=== PATIENT | male | born 1935 | race Caucasian/White ===

== ENCOUNTER → 2018-05-15 | Outpatient (CLI) | payer MEDICARE, BC, OTHER | LOC: M RAD 15:23 | DX: N18.4 Chronic kidney disease, stage 4 (severe) (principal); N20.0 Calculus of kidney | CPT/HCPCS: 74176 ==

== ENCOUNTER → 2019-02-20 | Outpatient (CLI) | payer MEDICARE, BC, OTHER ==
[~2019-02-20] MED LIST: ACET50TAOT PO; AKWA1OIN OS; AMLO10TA2 PO; ASPI81CH PO; ASPI81TA85 PO; CALC1CAP31; CATA0.1T PO; COLA50CA3 PO; CORE25TA PO; CRES20TA2 PO; CRESTOR PO; DRIS50003 PO; FINA5TAB2; FINA5TAB2 PO; FLOM0.4C39 PO; FURO40TA2; FURO40TA2 PO; GLIPPOW PO; INSUN; INSUN SC; LIQU1.4S OS; LISIPOW PO; METF500T PO; METO1TAB32; METO1TAB87 PO; METO50TA2 PO; MULTTAB4 PO; NIFE30TA7 PO; NITR-67; NITR-67 PO; NON-325T5 PO; PANT40TA3; PANT40TA3 PO; PRED10TA2 PO; ROCA0.25 PO; ROSU20TA4; TAMS1CAP17; TOPR25TA PO; VITA500045; VITA500C24 PO
[2019-02-24 00:06] LABS: Lyme Disease IgG/IgM Antibodie <0.91 ISR (0.00-0.90); Lyme Disease IgM Ab Quantitati <0.80 index (0.00-0.79)
== END ==
LOC: M LAB 19:28
PROVIDERS: ATTEND Family Medicine
DX: M79.2 Neuralgia and neuritis, unspecified (principal)

== ENCOUNTER → 2019-06-18 | Outpatient (REF) | payer MEDICARE, OTHER ==
[~2019-06-18] MED LIST changes: +ROLLMIS8 XX; -ROSU20TA4; +ROSU20TA5
== END ==
LOC: M SFHCPLAZ 10:14
PROVIDERS: ATTEND Dermatology
DX: C44.529 Squamous cell carcinoma of skin of other part of trunk (principal); L57.0 Actinic keratosis

== ENCOUNTER 2019-07-21 12:37 | Emergency (ER) | payer MEDICARE, BC, OTHER ==
[~2019-07-21] VITALS: Ht 170.2 cm; Wt 84.1 kg
[~2019-07-21 12:37] MED LIST changes: -ROLLMIS8 XX
[2019-07-21 13:50] LABS: BASO % 0.5 % (0.0-1.0); EOS # 0.2 10^3/uL (0.0-0.5); EOS % 2.6 % (0.0-3.0); HEMOGLOBIN 14.3 g/dl (13.5-17.5); LYMPH # 1.2 10^3/uL (1.5-5.0); LYMPH % 18.3 % (24.0-44.0); MEAN CORPUSCULAR HEMOGLOBIN 31.2 pg (27.0-33.0); MEAN CORPUSCULAR HGB CONC 31.8 g/dl (32.0-36.5); MONO # 0.5 10^3/uL (0.0-0.8); MONO % 8.1 % (0.0-5.0); NEUTROPHILS # 4.6 10^3/uL (1.5-8.5); PLATELET COUNT, AUTOMATED 147 10^3/uL (150-450); RED BLOOD COUNT 4.59 10^6/uL (4.30-6.10); WHITE BLOOD COUNT 6.5 10^3/uL (4.0-10.0)
[2019-07-21 14:29] LABS: ALBUMIN 3.7 GM/DL (3.2-5.2); BILIRUBIN,DIRECT 0.1 MG/DL (0.0-0.2); BILIRUBIN,TOTAL 0.6 MG/DL (0.2-1.0); CALCIUM LEVEL 9.2 MG/DL (8.8-10.2); CK-MB VALUE MASS 6.1 NG/ML (<3.6); CREATININE FOR GFR 3.97 MG/DL (0.70-1.30); GLOMERULAR FILTRATION RATE 15.4 (>35); MB/CK RELATIVE INDEX 8.59 (< OR =4); THYROID STIMULATING HORMONE 1.8 uIU/ML (0.358-3.740); TROPONIN I 0.06 NG/ML (< 0.10)
--- NOTE | 2019-07-21 14:43 | REP ---
Two-view chest: 07/21/2019. Indication: Weakness. Comparison: 02/09/2019. Findings: The lungs are clear. There is no pleural effusion or pneumothorax. Postoperative sequelae are redemonstrated. Left-sided dual lead pacer is noted with the leads intact. Cardiomediastinal silhouette is unremarkable. Impression: No acute cardiopulmonary process. Electronically Signed by Davon Araiza DO 07/21/2019 02:34 P
[2019-07-21] MEDS ORDERED: NS 1,000 ML IV ONE (14:45)
[2019-07-21 17:38] VITALS: BP 191/82
--- NOTE | 2019-07-21 23:48 | ECGEPIP ---
[facility] - ED Test Date: 2019-07-21 Pat Name: SHAKILA DIAZ Department: Room: - Gender: Male Route Carrier: TC : 1935 Requested By: Tiffanie Duenas Order Number: [id number] Reading MD: Nilton Lopes Measurements Intervals [place] Rate: 80 P: 34 VA: 182 QRS: 253 QRSD: 190 T: 94 QT: 483 QTc: 558 Interpretive Statements ELECTRONIC VENTRICULAR PACEMAKER SIMILAR TO 02/09/19 Electronically Signed on 07-21-2019 23:48:09 EST by Nilton Lopes
[2019-07-22] MEDS ORDERED: ROLLMIS8 XX (14:06)
== END 2019-07-21 18:07 | disposition home or self-care (01) ==
LOC: M ED 12:37
DX: E86.0 Dehydration (principal); R26.2 Difficulty in walking, not elsewhere classified; Z91.81 History of falling; I10 Essential (primary) hypertension; E78.00 Pure hypercholesterolemia, unspecified; N40.0 Benign prostatic hyperplasia without lower urinary tract symptoms; Z95.1 Presence of aortocoronary bypass graft; Z95.0 Presence of cardiac pacemaker; Z88.5 Allergy status to narcotic agent

== ENCOUNTER → 2019-07-21 | Outpatient (REF) | payer MEDICARE, OTHER | LOC: M LAB REF 18:18 | PROVIDERS: ATTEND Dermatology | DX: L90.5 Scar conditions and fibrosis of skin (principal) ==

== ENCOUNTER → 2019-10-21 | Outpatient (REF) | payer MEDICARE, OTHER ==
[~2019-10-21] MED LIST changes: +AUGM0.0534 TOP; +CLOTLOT TOP; +DOCU-129 PO; +DOCU100C16 PO; +LANTINJ4 SC; +NIFE1TAB52 PO; -NIFE30TA7 PO; +PEG1POW PO; +PURE500C5 PO; +ROLLMIS8 XX; +VITA50005 PO
== END ==
LOC: M LAB REF 11:30
PROVIDERS: ATTEND Dermatology
DX: L57.0 Actinic keratosis (principal)

== ENCOUNTER 2019-11-04 12:06 | Inpatient (IN) | payer MEDICARE, BC, OTHER ==
[~2019-11-04] VITALS: Ht 170.2 cm; Wt 85.2 kg
[~2019-11-04 12:06] MED LIST changes: -AUGM0.0534 TOP; -CLOTLOT TOP; -DOCU-129 PO; -DOCU100C16 PO; -LANTINJ4 SC; -PEG1POW PO; -PURE500C5 PO; -VITA50005 PO
[2019-11-04] MEDS ORDERED: FURO40TA2 PO (12:35)
[2019-11-04] MEDS ORDERED: PURE500C5 PO (12:35)
[2019-11-04] MEDS ORDERED: NS 500 ML IV ONE ×2 (13:00→15:45)
--- NOTE | 2019-11-04 13:46 | REP ---
CHEST, SINGLE VIEW: Single view of the chest is performed. No acute infiltrate is seen. Heart appears upper limits of normal in size to slightly enlarged. Multiple sternal wires and mediastinal clips are present. Mediastinal silhouette is unremarkable. Left dual lead pacemaker is again noted. IMPRESSION: No acute pulmonary disease. Electronically Signed by Santiago Pedro MD 11/04/2019 04:11 P
[2019-11-04 14:02] LABS: ALBUMIN 3.1 GM/DL (3.2-5.2); BILIRUBIN,DIRECT 0.2 MG/DL (0.0-0.2); BILIRUBIN,TOTAL 0.4 MG/DL (0.2-1.0); CALCIUM LEVEL 9.2 MG/DL (8.8-10.2); CK-MB VALUE MASS 4.5 NG/ML (<3.6); CREATININE FOR GFR 3.63 MG/DL (0.70-1.30); FREE T4 1.14 NG/DL (0.76-1.46); GLOMERULAR FILTRATION RATE 17.1 (>35); MAGNESIUM LEVEL 2.3 MG/DL (1.8-2.4); MB/CK RELATIVE INDEX 12.16 (< OR =4); THYROID STIMULATING HORMONE 1.68 uIU/ML (0.358-3.740); TROPONIN I 0.06 NG/ML (< 0.10)
[2019-11-04 14:16] LABS: BASO % 0.6 % (0.0-1.0); EOS # 0.2 10^3/uL (0.0-0.5); EOS % 3.2 % (0.0-3.0); HEMATOCRIT 36.1 % (42.0-52.0); HEMOGLOBIN 11.9 g/dl (13.5-17.5); MEAN CORPUSCULAR HEMOGLOBIN 31.6 pg (27.0-33.0); MONO # 0.5 10^3/uL (0.0-0.8); MONO % 7.6 % (0.0-5.0); NEUTROPHILS # 5.1 10^3/uL (1.5-8.5); NEUTROPHILS % 74.2 % (36.0-66.0); PLATELET COUNT, AUTOMATED 147 10^3/uL (150-450); RED BLOOD COUNT 3.76 10^6/uL (4.30-6.10); WHITE BLOOD COUNT 6.9 10^3/uL (4.0-10.0)
[2019-11-04] MEDS ORDERED: GLUCAGON FOR INJ 1 MG VIAL (J1610) SC PRN (18:45)
[2019-11-04] MEDS ORDERED: GLUCOSE 4 GM CHEW TABLET PO PRN (18:45)
[2019-11-04] MEDS ORDERED: DEXTROSE 50% 50 ML SYRINGE IV PRN (18:45)
--- NOTE | 2019-11-04 19:01 | HPEPDOC ---
General Date of Admission 11/04/19 Date of Service: Nov 04, 2019 Chief Complaint The patient is a 84-year-old male admitted with a reason for visit of Weakness. 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 Patient has been shaking, weak, with frequent falls at home. He was found to have orthostatic hypotension in the ED. The last week he has been very weak and shakey. he had fallen 5 times mostly in the mornings soon after getting up from bed. Went to see PMD Dr Tan and was found o have hypotension on standing ans was sent to the ED. In the ED he was found to have supine hypertension with large drop on standing up when he would become symptomatic and weak and shakey. He was admitted for orthostatic hypotension with gait instability and falls. Home Medications Scheduled Ascorbic Acid (Vitamin C) 500 Mg Capsule.er, 1 CAP PO DAILY, (Reported) Aspirin (Aspir 81) 81 Mg Tablet.dr, 81 MG PO QPM, (Reported) Calcitriol (Rocaltrol) 0.25 Mcg Capsule, 0.25 MCG PO DAILY, (Reported) Ergocalciferol (Vitamin D2) (Drisdol) 50,000 Unit Capsule, 50,000 UNIT PO Q2WK, (Reported) Finasteride (Finasteride) 5 Mg Tablet, 5 MG PO DAILY, (Reported) Furosemide (Furosemide) 40 Mg Tablet, 250 MG PO DAILY, (Reported) Furosemide (Furosemide) 40 Mg Tablet, 1 TAB PO DAILY, (Reported) Insulin Human NPH (Novolin N) 100 Unit/1 Ml Vial, 35 UNITS SC BID, (Reported) Metoprolol Succinate (Toprol Xl) 25 Mg Tab.er.24h, 25 MG PO DAILY, (Reported) Nifedipine (Nifedipine ER) 30 Mg Tab.er.24, 30 MG PO DAILY Nitrofurantoin Macrocrystal (Nitrofurantoin) 100 Mg Capsule, 100 MG PO DAILY, (Reported) Pantoprazole Sodium (Pantoprazole Sodium) 40 Mg Tablet.dr, 40 MG PO DAILY, (Reported) Rosuvastatin Calcium (Crestor) 20 Mg Tablet, 20 MG PO QPM, (Reported) Tamsulosin HCl (Flomax) 0.4 Mg Capsule, 0.8 MG PO QPM, (Reported) Scheduled PRN Acetaminophen (Acetaminophen) 325 Mg Tablet, 650 MG PO Q4H PRN for PAIN, (Reported) Allergies Coded Allergies: Sulfa (Sulfonamide Antibiotics) (Unverified Allergy, Severe, anaphylaxis, 02/09/19) Past Medical History Medical History CAD s/p CABG, Aortic stenosis s/p TAVR in 2014, 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, Diabetes, hypertension, hyperlipidemia, BPH, s/p suprapubic cath in 2013 for 1 year, 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, h/o Complete heart block s/p pacemaker, 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, Basal cell cancer left cheek, actinic keratosis Surgical History HEART BYPASS SURGERY HEART STENT PACEMAKER AORTIC VALVE REPLACEMENT Family History Significant Family History: Diabetes (father, younger brother), Heart disease (father, younger brother) Social History * Smoker: Denies Alcohol: Denies Drugs: denies A-FIB/CHADSVASC A-FIB History Current/History of A-Fib/PAF?: No Review of Systems Constitutional: Reports: Weakness; Denies: Chills, Fever, Night Sweats Eyes: Denies: Pain, Vision change ENT: Denies: Head Aches, Ear Pain, Dysphagia Skin: Reports: Lesions Pulmonary: Denies: Dyspnea, Cough Cardiovascular: Reports: Lt Headedness; Denies: Chest Pain, Palpitations, Orthopnea, Paroxysmal Noc. Dyspnea Gastrointestinal: Denies: Nausea, Vomiting, Abdominal Pain, Diarrhea Genitourinary: Denies: Dysuria, Frequency, Incontinence, Retention Hematologic: Denies: Bruising, Bleeding Excessively Musculoskeletal: Denies: Neck Pain, Back Pain, Joint Pain, Muscle Pain, Spasms Neurological: Reports: Weakness Physical Examination General Exam: Positive: Alert, Cooperative, No Acute Distress Eye Exam: Positive: PERRLA, Conjunctiva & lids normal, EOMI; Negative: Sclera icteric ENT Exam: Positive: Atraumatic, Mucous membr. moist/pink, Pharynx Normal Neck Exam: Positive: Supple; Negative: JVD, thyromegaly Chest Exam: Positive: Clear to auscultation, Normal air movement Heart Exam: Positive: Rate Normal, Regular Rhythm, Normal S1, Normal S2; Negative: Murmurs, Rubs Abdomen Exam: Positive: Normal bowel sounds, Soft; Negative: Tenderness, Hepatospenomegaly Extremity Exam: Negative: Clubbing, Cyanosis, Edema Skin Exam: Positive: Nl turgor and temperature; Negative: Breakdown, Lesion Neuro Exam: Positive: Normal Speech, Strength at 5/5 X4 ext, Normal Tone Psych Exam: Positive: Memory Intact, Oriented x 3 Vital Signs Vital Signs Date Time Temp Pulse Resp B/P (MAP) Pulse Ox O2 Delivery O2 Flow Rate FiO2 11/04/19 16:44 68 175/78 (110) 75 131/55 (80) 74 125/58 (80) 11/04/19 15:42 99.6 11/04/19 15:30 20 99 Room Air Laboratory Data Labs 24H Laboratory Tests 2 11/04/19 13:04: Bedside Glucose (Misc Panel) 393H 11/04/19 13:06: Anion Gap 9, Glomerular Filtration Rate 17.1L, Calcium Level 9.2, Magnesium Level 2.3, Total Bilirubin 0.4, Direct Bilirubin 0.2, Aspartate Amino Transf (AST/SGOT) 27, Alanine Aminotransferase (ALT/SGPT) 34, Alkaline Phosphatase 131H, Total Creatine Kinase 37L, Creatine Kinase MB 4.5H, Creatine Kinase MB Relative Index 12.16H, Troponin I 0.06, Total Protein 7.0, Albumin 3.1L, Albumin/Globulin Ratio 0.79L, Thyroid Stimulating Hormone (TSH) 1.680, Free Thyroxine 1.14 11/04/19 13:26: Immature Granulocyte % (Auto) 0.4, Neutrophils (%) (Auto) 74.2H, Lymphocytes (%) (Auto) 14.0L, Monocytes (%) (Auto) 7.6H, Eosinophils (%) (Auto) 3.2H, Basophils (%) (Auto) 0.6, Neutrophils # (Auto) 5.1, Lymphocytes # (Auto) 1.0L, Monocytes # (Auto) 0.5, Eosinophils # (Auto) 0.2, Basophils # (Auto) 0.0, Nucleated Red Blood Cells % (auto) 0.0 11/04/19 16:50: Urine Color YELLOW, Urine Appearance HAZY, Urine pH 6.0, Urine Specific [place] 1.013, Urine Protein 2+H, Urine Glucose (UA) 3+H, Urine Ketones NEGATIVE, Urine Blood NEGATIVE, Urine Nitrite NEGATIVE, Urine Bilirubin NEGATIVE, Urine Urobilinogen 0.2, Urine Leukocyte Esterase 3+H, Urine WBC (Auto) 171H, Urine RBC (Auto) 2, Urine Hyaline Casts (Auto) 0, Urine Bacteria (Auto) NEGATIVE, Urine Squamous Epithelial Cells 0, Urine Yeast-Like Cells (Auto) MODERATEH, Urine Sperm (Auto) CBC/BMP Laboratory Tests 11/04/19 13:06 11/04/19 13:26 Microbiology Microbiology 11/04/19 Urine Culture, Received Pending 11/04/19 Blood Culture, Received Pending 11/04/19 Blood Culture, Received Pending Assessment/Plan 84 year old male with PMH of CAD s/p CABG, Aortic stenosis s/p replacement, 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 Patient has been shaking, weak, with frequent falls at home. He was found to have orthostatic hypotension in the ED. The last week he has been very weak and shakey. he had fallen 5 times mostly in the mornings soon after getting up from bed. Went to see PMD Dr Tan and was found o have hypotension on standing ans was sent to the ED. In the ED he was found to have supine hypertension with large drop on standing up when he would become symptomatic and weak and shakey. He was admitted for orthostatic hypotension with gait instability and falls. Gait instability and falls from orthostatic hypotension and possible diabetic neuropathy part of the weakness is due to progressing CKD. PT and OT eval Supine hypertension with orthostatic hypotension possibly due to autonomic neuropathy unfortunately will not be able to use fludrocortisone at present as that will cause further supine hypertension will probably have to accept higher supine BPs to prevent symptoms from th orthosttic changes when he stands up CKD 4 to 5 will consult with Nephrology No signs of uremia, no fluid retention, electrolytes ok. continue diuretics. UA dirty patient does not have any urinary symptoms and no fever or elevated WBC will not treat now await culture results. Chronic anemia hh stable Hypertension continue home meds Diabetes uncontrolled lispro and levemir as per sliding scale. CAD/CABG continue asa, statin, betablocker BPH continue flomax and finasteride. Plan / VTE VTE Prophylaxis Ordered?: Yes LIO NICOLE MD Nov 04, 2019 18:02
[2019-11-04] MEDS ORDERED: CLOTLOT TOP (19:03)
[2019-11-04] MEDS ORDERED: AUGM0.0534 TOP (19:03)
[2019-11-04] MEDS ORDERED: LANTINJ4 SC (19:03)
[2019-11-04] MEDS ORDERED: DOCU-129 PO (19:03)
[2019-11-04] MEDS ORDERED: VITA50005 PO (19:03)
[2019-11-04 21:40] VITALS: BP 142/80
[2019-11-04] MEDS: DOCUSATE SODIUM 100 MG CAP PO SCH (22:19)
[2019-11-04] MEDS: HumaLOG INSULIN (NovoLOG) PER UNIT SC SCH (22:20)
[2019-11-05] MEDS: TAMSULOSIN 0.4 MG CAP PO SCH ×3 (00:27→19:52)
[2019-11-05] MEDS: LEVEMIR (INSULIN DETEMIR) 1 UNITS/0.01ML SC SCH ×3 (00:28→19:52)
[2019-11-05 04:00] VITALS: BP 129/59
[2019-11-05 06:04] LABS: BASO % 0.5 % (0.0-1.0); EOS # 0.4 10^3/uL (0.0-0.5); EOS % 6.2 % (0.0-3.0); HEMATOCRIT 34.6 % (42.0-52.0); HEMOGLOBIN 11.4 g/dl (13.5-17.5); LYMPH # 1.3 10^3/uL (1.5-5.0); LYMPH % 20.9 % (24.0-44.0); MEAN CORPUSCULAR HEMOGLOBIN 30.7 pg (27.0-33.0); MEAN CORPUSCULAR HGB CONC 32.9 g/dl (32.0-36.5); MEAN CORPUSCULAR VOLUME 93.3 fl (80.0-96.0); MONO # 0.5 10^3/uL (0.0-0.8); MONO % 8.2 % (0.0-5.0); NEUTROPHILS # 3.9 10^3/uL (1.5-8.5); PLATELET COUNT, AUTOMATED 143 10^3/uL (150-450); RED BLOOD COUNT 3.71 10^6/uL (4.30-6.10); WHITE BLOOD COUNT 6.1 10^3/uL (4.0-10.0)
[2019-11-05 06:32] LABS: CALCIUM LEVEL 8.4 MG/DL (8.8-10.2); CREATININE FOR GFR 3.09 MG/DL (0.70-1.30); GLOMERULAR FILTRATION RATE 20.6 (>35); POTASSIUM SERUM 4.8 MEQ/L (3.5-5.1)
--- NOTE | 2019-11-05 06:53 | ECGEPIP ---
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
[2019-11-05 08:00] VITALS: BP 138/68
[2019-11-05] MEDS: HumaLOG INSULIN (NovoLOG) PER UNIT SC SCH ×4 (08:24→19:53)
[2019-11-05] MEDS: FINASTERIDE 5 MG TAB PO SCH (08:25)
[2019-11-05] MEDS: DOCUSATE SODIUM 100 MG CAP PO SCH ×2 (08:25→19:52)
[2019-11-05] MEDS: HEPARIN SOD (PORCINE) 5000 UNITS/ML VIAL (J1644 PER 1000UNITS) SC SCH ×2 (08:25→19:52)
[2019-11-05] MEDS: METOPROLOL SUCC *XL* 25MG TAB (TopROL *XL*) PO SCH (08:26)
[2019-11-05] MEDS: PANTOPRAZOLE 40MG TAB (PROTONIX) PO SCH (08:26)
[2019-11-05] MEDS: NIFEdipine 30 MG XL TAB PO SCH (08:26)
[2019-11-05] MEDS ORDERED: FUROSEMIDE 40 MG TAB PO SCH (09:00)
--- NOTE | 2019-11-05 10:34 | IPNPDOC ---
Subjective Date Seen The patient was seen on 11/05/19. Subjective Chief Complaint/HPI Patient is comfortable in no distress. Offers no new complaints General: Denies: ROS Unobtainable, Chills, Night Sweats, Fatigue, Malaise, Normal Appetite, Other Symptoms Constitutional: Denies: Chills, Fever, Malaise, Night Sweats, Weakness, Fatigue, Weight Loss, Lethargy, Other Pulmonary: Denies: Dyspnea, Cough, Pleuritic Chest Pain, Other Symptoms Cardiovascular: Denies: Chest Pain, Palpitations, Orthopnea, Paroxysmal Noc. Dyspnea, Edema, Lt Headedness, Other Symptoms Gastrointestinal: Denies: Nausea, Vomiting, Abdominal Pain, Diarrhea, Constipation, Melena, Hematochezia, Other Symptoms Musculoskeletal: Denies: Neck Pain, Back Pain, Shoulder Pain, Arm Pain, Hand Pain, Leg Pain, Foot Pain, Joint Pain, Muscle Pain, Spasms, Other Symptoms Neurological: Denies: Weakness, Numbness, Incoordination, Change in speech, Confusion, Seizures, Other Symptoms Objective Physical Examination Eye Exam: Negative: Sclera icteric Neck Exam: Positive: Supple; Negative: JVD, thyromegaly Chest Exam: Positive: Clear to auscultation, Normal air movement Heart Exam: Positive: Rate Normal, Regular Rhythm, Normal S1, Normal S2; Negative: Murmurs, Rubs Abdomen Exam: Positive: Normal bowel sounds, Soft; Negative: Tenderness, Hepatospenomegaly Extremity Exam: Negative: Clubbing, Cyanosis, Edema Skin Exam: Positive: Nl turgor and temperature; Negative: Breakdown, Lesion Neuro Exam: Positive: Normal Speech, Strength at 5/5 X4 ext, Normal Tone Assessment /Plan Problems (1) Orthostatic hypotension Status: Acute Problem Text: Supine hypertension with orthostatic hypotension possibly due to autonomic neuropathy unfortunately will not be able to use fludrocortisone at present as that will cause further supine hypertension will probably have to accept higher supine BPs to prevent symptoms from th orthosttic changes when he stands up (2) Chronic kidney disease Status: Acute Problem Text: CKD [address] Landeros on the consults No signs of uremia, no fluid retention, electrolytes ok. continue diuretics. (3) HTN (hypertension) Status: Chronic Problem Text: Continue present meds (4) UTI (urinary tract infection) Status: Acute Problem Text: . 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 Patient has been shaking, weak, with frequent falls at home. He was found to have orthostatic hypotension in the ED. The last week he has been very weak and s hakey. he had fallen 5 times mostly in the mornings soon after getting up from bed. Went to see PMD Dr Tan and was found o have hypotension on standing ans was sent to the ED. In the ED he was found to have supine hypertension with large drop on standing up when he would become symptomatic and weak and shakey. He was admitted for orthostatic hypotension with gait instability and falls. Gait instability and falls from orthostatic hypotension and possible diabetic neuropathy part of the weakness is due to progressing CKD. PT and OT eval called possible rehab placement DC tele Plan/VTE VTE Prophylaxis Ordered?: Yes VS, I&O, 24H, Fishbone Vital Signs/I&O Vital Signs Date Time Temp Pulse Resp B/P (MAP) Pulse Ox O2 Delivery O2 Flow Rate FiO2 11/05/19 08:26 138/68 11/05/19 08:26 75 11/05/19 08:00 98.1 14 100 Room Air I&O- Last 24 Hours up to 6 AM0 11/05/19 06:00 Intake Total 1000 ml Output Total 0 ml Balance 1000 ml Laboratory Data 24H LABS Laboratory Tests 2 11/04/19 13:04: Bedside Glucose (Misc Panel) 393H 11/04/19 13:06: Anion Gap 9, Glomerular Filtration Rate 17.1L, Calcium Level 9.2, Magnesium Level 2.3, Total Bilirubin 0.4, Direct Bilirubin 0.2, Aspartate Amino Transf (AST/SGOT) 27, Alanine Aminotransferase (ALT/SGPT) 34, Alkaline Phosphatase 131H, Total Creatine Kinase 37L, Creatine Kinase MB 4.5H, Creatine Kinase MB Relative Index 12.16H, Troponin I 0.06, Total Protein 7.0, Albumin 3.1L, Albumin/Globulin Ratio 0.79L, Thyroid Stimulating Hormone (TSH) 1.680, Free Thyroxine 1.14 11/04/19 13:26: Immature Granulocyte % (Auto) 0.4, Neutrophils (%) (Auto) 74.2H, Lymphocytes (%) (Auto) 14.0L, Monocytes (%) (Auto) 7.6H, Eosinophils (%) (Auto) 3.2H, Basophils (%) (Auto) 0.6, Neutrophils # (Auto) 5.1, Lymphocytes # (Auto) 1.0L, Monocytes # (Auto) 0.5, Eosinophils # (Auto) 0.2, Basophils # (Auto) 0.0, Nucleated Red Blood Cells % (auto) 0.0 11/04/19 16:50: Urine Color YELLOW, Urine Appearance HAZY, Urine pH 6.0, Urine Specific [place] 1.013, Urine Protein 2+H, Urine Glucose (UA) 3+H, Urine Ketones NEGATIVE, Urine Blood NEGATIVE, Urine Nitrite NEGATIVE, Urine Bilirubin NEGATIVE, Urine Urobili nogen 0.2, Urine Leukocyte Esterase 3+H, Urine WBC (Auto) 171H, Urine RBC (Auto) 2, Urine Hyaline Casts (Auto) 0, Urine Bacteria (Auto) NEGATIVE, Urine Squamous Epithelial Cells 0, Urine Yeast-Like Cells (Auto) MODERATEH, Urine Sperm (Auto) 11/04/19 17:55: Bedside Glucose (Misc Panel) 320H 11/04/19 21:02: Bedside Glucose (Misc Panel) 415H 11/04/19 22:06: Bedside Glucose (Misc Panel) 378H 11/05/19 05:52: Immature Granulocyte % (Auto) 0.2, Neutrophils (%) (Auto) 64.0, Lymphocytes (%) (Auto) 20.9L, Monocytes (%) (Auto) 8.2H, Eosinophils (%) (Auto) 6.2H, Basophils (%) (Auto) 0.5, Neutrophils # (Auto) 3.9, Lymphocytes # (Auto) 1.3L, Monocytes # (Auto) 0.5, Eosinophils # (Auto) 0.4, Basophils # (Auto) 0.0, Nucleated Red Blood Cells % (auto) 0.0, Anion Gap 8, Glomerular Filtration Rate 20.6L, Estimated Mean Plasma Glucose 212H, Hemoglobin A1c 9.0, Calcium Level 8.4L CBC/BMP Laboratory Tests 11/04/19 13:06 11/04/19 13:26 11/05/19 05:52 Microbiology Microbiology 11/04/19 Urine Culture, Received Pending 11/04/19 Blood Culture, Received Pending 11/04/19 Blood Culture, Received Pending JOSEF HARPER MD Nov 05, 2019 10:33
[2019-11-05 12:00] VITALS: BP 133/61
--- NOTE | 2019-11-05 14:01 | CR ---
DATE OF CONSULTATION: 11/05/2019 REQUESTING PHYSICIAN: Dr. Mary Farmer. REASON FOR CONSULTATION: Management of acute kidney injury superimposed on chronic kidney disease. CHIEF COMPLAINT: The patient presented to the hospital with dizziness and falls. HISTORY OF PRESENT ILLNESS: Mr. James Reeves is an 84-year-old male with past medical history of chronic kidney disease stage IV, history of coronary artery disease status post coronary artery bypass graft (CABG), aortic stenosis, diabetes mellitus type 2, multiple other comorbidities as mentioned below. The patient was sent to the emergency room yesterday from the primary care office because of low blood pressures. The patient reports that he was feeling very weak and tired and he was having frequent falls at home. He was found to have hypotension in the emergency room. The patient was admitted under the hospitalist service last night. He was given IV fluid hydration. He was also found to have acute renal failure superimposed on chronic kidney disease and creatinine on arrival was 3.6. Nephrology service was called for further help in the management of this patient. I saw and evaluated the patient this morning at the bedside. He reported that he is feeling slightly better today as compared with yesterday. He was sleepy because he was unable to sleep last night. PAST MEDICAL HISTORY: Past medical history of chronic kidney disease stage IV, history of coronary artery disease, status post CABG, aortic stenosis status post transcatheter aortic valve replacement (TAVR) in 2014, diabetes mellitus type 2, hypertension, hyperlipidemia, benign prostatic hypertrophy (BPH), history of suprapubic catheter in 2013 for 1 year. [place] palsy of the left face, history of a complete heart block status post pacemaker, history of multiple squamous cell cancer lesions in the past and basal cell cancer in the left cheek. PAST SURGICAL HISTORY: Status post coronary artery bypass grafting, status post stents in the heart, status post pacemaker, status post aortic valve replacement. ALLERGIES: The patient is allergic to SULFA drugs. FAMILY HISTORY: No significant family history of end-stage renal disease requiring hemodialysis. SOCIAL HISTORY: The patient lives at home. Denies any smoking, illicit drug abuse or alcohol abuse. REVIEW OF SYSTEMS: Constitutional: Patient reports feeling weak and fatigued. EYES: He denies any blurry vision, double vision. ENT: Denies any dysphagia, odynophagia. CARDIOVASCULAR: He denies any chest pain or palpitation. RESPIRATORY: Denies any shortness of breath or cough. GI: Denies any nausea, vomiting. GENITOURINARY: He denies any dysuria or hematuria. MUSCULOSKELETAL: Reports muscle weakness. SKIN: He denies any rashes or ulcers. HEAD BANQUET WAITER/WAITRESS: He denies any strokes or seizures. He does report falls. HEMATOLOGY/ONCOLOGY: He denies any easy bleeding or bruising. All other review of systems is negative. PHYSICAL EXAMINATION: GENERAL: The patient is awake, alert, oriented to oriented times three, laying in the in the bed. VITAL SIGNS: Temperature is 98.1 degrees Fahrenheit, blood pressure 138/68, pulse is 75, respiratory of 40, saturating 100% on room air. Intake and output: There is no urine output recorded. HEAD AND NECK EXAM: Extraocular muscles intact. Pupils equally round and reactive to light. Mucous membranes are moist. Neck is supple. There is no jugular venous distention (JVD). CARDIOVASCULAR: S1, S2, regular rate. No edema of the bilateral lower extremities. RESPIRATORY: Chest is clear to auscultation bilaterally. Bilateral equal air entry. No rales or rhonchi. ABDOMEN: Soft, positive bowel sounds. Nontender. No organomegaly. GENITOURINARY: Bladder is not palpable. MUSCULOSKELETAL: No clubbing or cyanosis. Pulses are 2+. No edema of the bilateral lower extremities. HEAD BANQUET WAITER/WAITRESS: No focal deficit. Power is 5/5 in all extremities. LAB REVIEW: CBC showed WBC of 6.1, hemoglobin 11.4, platelets of 143. Urinalysis done on admission showed 2+ protein, no blood, 3+ leukocyte esterase, WBCs were 171. BMP done on arrival showed sodium 135, potassium 5, chloride 99, bicarb 27, BUN 79, creatinine 3.6. BMP done this morning showed sodium 139, potassium 4.8, chloride 106, bicarb 25, BUN 68, creatinine is 3, A1c is 9, calcium is 8.4. IMAGING: A chest x-ray was done yesterday which showed no acute pulmonary process. HOME MEDICATIONS: - The patient takes Tylenol as needed - vitamin C 500 mg daily - aspirin 81 mg daily - calcitriol 0.25 mcg by mouth every other day - Colace 100 mg by mouth nightly - vitamin D 50,000 units once a month - finasteride 5 mg by mouth daily - Lasix 40 mg by mouth daily - Insulin Lantus 50 units daily - metoprolol XL 25 mg by mouth daily - nifedipine 30 mg by mouth daily - nifedipine 30 mg by mouth daily - Protonix 40 mg by mouth - nitrofurantoin 100 mg by mouth daily - Flomax 0.4 mg p.o. twice a day CURRENT INPATIENT MEDICATIONS: Include - normal saline 500 mL bolus times two doses yesterday - aspirin 81 mg daily - calcitriol 0.25 mcg every other day - Colace 100 mg by mouth twice a day - finasteride 5 mg by mouth daily. - Lasix 40 mg daily which I have stopped now. - He is on heparin 5000 units subcu every 12 hourly - insulin Levemir 30 units subcu twice a day - insulin sliding scale - metoprolol XL 25 mg by mouth daily - nifedipine 30 mg daily - Protonix 40 mg daily - rosuvastatin 20 mg nightly - Flomax 0.4 mg by mouth twice a day. ASSESSMENT: 84 years old man with history of chronic kidney disease stage IV, diabetes mellitus type 2, history of coronary artery disease, hypertension, BPH, admitted this time with weakness, orthostatic hypotension and falls along with acute kidney injury superimposed on chronic kidney disease. PLAN: 1. Acute kidney injury superimposed on, chronic kidney disease stage IV. The patient was found to have a creatinine of 3.6, most likely secondary to dehydration volume depletion and orthostatic hypotension and falls. He was given IV fluid hydration and because of that I am stopping the oral diuretic at this time. Continue to monitor for renal improvement. Creatinine is also trending down from 3.6 to 3 this morning. 2. Hypertension: Continue current dose of metoprolol and nifedipine. Blood pressures are acceptable and diuretics are on hold as mentioned above. 3. Diabetes mellitus type 2: Continue insulin sliding scale and long-acting insulin. Avoid use of metformin, angiotensin receptor blockers or angiotensin converting enzyme inhibitors (KACEY) inhibitors. 4. Coronary artery disease status post CABG and aortic valve replacement. Continue current dose of rosuvastatin, aspirin and metoprolol. 5. Secondary hyperparathyroidism: Continue current dose of calcitriol 0.25 mcg three times a day at the day. 6. BPH with lower urinary tract symptoms. Continue current dose of finasteride and Flomax. Thank you for involving me in the care of this patient. I shall be happy to follow the patient along with you tomorrow morning.
[2019-11-05 16:00] VITALS: BP 128/60
[2019-11-05] MEDS: ROSUVASTATIN 10 MG TAB (CRESTOR) PO SCH (18:27)
[2019-11-05] MEDS: ASPIRIN 81 MG ENTERIC TAB PO SCH (18:27)
[2019-11-05 20:00] VITALS: BP 108/55
[2019-11-05 22:39] VITALS: BP 133/72
[2019-11-06 06:00] VITALS: BP 128/60
[2019-11-06 06:29] LABS: BASO % 0.4 % (0.0-1.0); EOS # 0.3 10^3/uL (0.0-0.5); EOS % 4.4 % (0.0-3.0); HEMATOCRIT 36.1 % (42.0-52.0); HEMOGLOBIN 11.9 g/dl (13.5-17.5); LYMPH # 1.4 10^3/uL (1.5-5.0); LYMPH % 18.4 % (24.0-44.0); MEAN CORPUSCULAR HEMOGLOBIN 31.2 pg (27.0-33.0); MEAN CORPUSCULAR VOLUME 94.8 fl (80.0-96.0); MONO # 0.6 10^3/uL (0.0-0.8); MONO % 7.4 % (0.0-5.0); NEUTROPHILS # 5.2 10^3/uL (1.5-8.5); NEUTROPHILS % 68.9 % (36.0-66.0); PLATELET COUNT, AUTOMATED 155 10^3/uL (150-450); RED BLOOD COUNT 3.81 10^6/uL (4.30-6.10); WHITE BLOOD COUNT 7.6 10^3/uL (4.0-10.0)
[2019-11-06 06:37] LABS: CALCIUM LEVEL 8.8 MG/DL (8.8-10.2); CREATININE FOR GFR 3.51 MG/DL (0.70-1.30); GLOMERULAR FILTRATION RATE 17.8 (>35); POTASSIUM SERUM 4.2 MEQ/L (3.5-5.1)
[2019-11-06] MEDS: HumaLOG INSULIN (NovoLOG) PER UNIT SC SCH ×4 (07:30→21:00)
[2019-11-06] MEDS: LEVEMIR (INSULIN DETEMIR) 1 UNITS/0.01ML SC SCH ×2 (09:00→22:01)
[2019-11-06] MEDS: TAMSULOSIN 0.4 MG CAP PO SCH ×2 (10:21→22:01)
[2019-11-06] MEDS: PANTOPRAZOLE 40MG TAB (PROTONIX) PO SCH (10:21)
[2019-11-06] MEDS: DOCUSATE SODIUM 100 MG CAP PO SCH ×2 (10:21→22:01)
[2019-11-06] MEDS: NIFEdipine 30 MG XL TAB PO SCH (10:21)
[2019-11-06] MEDS: FINASTERIDE 5 MG TAB PO SCH (10:22)
[2019-11-06] MEDS: HEPARIN SOD (PORCINE) 5000 UNITS/ML VIAL (J1644 PER 1000UNITS) SC SCH ×2 (10:22→22:01)
[2019-11-06] MEDS: METOPROLOL SUCC *XL* 25MG TAB (TopROL *XL*) PO SCH (10:22)
[2019-11-06] MEDS: CALCITRIOL 0.25 MCG CAP (S0169) PO SCH (10:22)
--- NOTE | 2019-11-06 10:38 | IPNPDOC ---
Subjective Date Seen The patient was seen on 11/06/19. Subjective Chief Complaint/HPI Patient is comfortable offers no new complaints at the present time General: Denies: ROS Unobtainable, Chills, Night Sweats, Fatigue, Malaise, Normal Appetite, Other Symptoms Constitutional: Denies: Chills, Fever, Malaise, Night Sweats, Weakness, Fatigue, Weight Loss, Lethargy, Other Pulmonary: Denies: Dyspnea, Cough, Pleuritic Chest Pain, Other Symptoms Cardiovascular: Denies: Chest Pain, Palpitations, Orthopnea, Paroxysmal Noc. Dyspnea, Edema, Lt Headedness, Other Symptoms Gastrointestinal: Denies: Nausea, Vomiting, Abdominal Pain, Diarrhea, Constipation, Melena, Hematochezia, Other Symptoms Musculoskeletal: Denies: Neck Pain, Back Pain, Shoulder Pain, Arm Pain, Hand Pain, Leg Pain, Foot Pain, Joint Pain, Muscle Pain, Spasms, Other Symptoms Neurological: Denies: Weakness, Numbness, Incoordination, Change in speech, Confusion, Seizures, Other Symptoms Objective Physical Examination Eye Exam: Negative: Sclera icteric Neck Exam: Positive: Supple; Negative: JVD, thyromegaly Chest Exam: Positive: Clear to auscultation, Normal air movement Heart Exam: Positive: Rate Normal, Regular Rhythm, Normal S1, Normal S2; Negative: Murmurs, Rubs Abdomen Exam: Positive: Normal bowel sounds, Soft; Negative: Tenderness, Hepatospenomegaly Extremity Exam: Negative: Clubbing, Cyanosis, Edema Skin Exam: Positive: Nl turgor and temperature; Negative: Breakdown, Lesion Neuro Exam: Positive: Normal Speech, Strength at 5/5 X4 ext, Normal Tone Assessment /Plan Problems (1) Orthostatic hypotension Status: Resolved Problem Text: Supine hypertension with orthostatic hypotension possibly due to autonomic neuropathy Shortness of orthostatic hypotension has resolved Can be discharged home or to rehabilitation facility once cleared by physical therapy (2) Chronic kidney disease Status: Acute Problem Text: CKD [address] Landeros on the consults No signs of uremia, no fluid retention, electrolytes ok. continue diuretics. (3) HTN (hypertension) Status: Chronic Problem Text: Continue present meds (4) UTI (urinary tract infection) Status: Acute Problem Text: . 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 Patient has been shaking, weak, with frequent falls at home. He was found to have orthostatic hypotension in the ED. The last week he has been very weak and shakey. he had fallen 5 times mostly in the mornings soon after getting up from bed. Went to see PMD Dr Tan and was found o have hypotension on standing ans was sent to the ED. In the ED he was found to have supine hypertension with large drop on standing up when he would become symptomatic and weak and shakey. He was admitted for orthostatic hypotension with gait instability and falls. Gait instability and falls from orthostatic hypotension and possible diabetic neuropathy part of the weakness is due to progressing CKD. PT and OT eval called possible rehab placement DC tele Plan/VTE VTE Prophylaxis Ordered?: Yes VS, I&O, 24H, [facility] Vital Signs/I&O Vital Signs Date Time Temp Pulse Resp B/P (MAP) Pulse Ox O2 Delivery O2 Flow Rate FiO2 11/06/19 10:21 128/60 11/06/19 06:00 97.1 71 18 96 Room Air I&O- Last 24 Hours up to 6 AM 11/06/19 06:00 Intake Total 1080 ml Output Total 800 ml Balance 280 ml Laboratory Data 24H LABS Laboratory Tests 2 11/05/19 13:07: Bedside Glucose (Misc Panel) 241H 11/05/19 18:17: Bedside Glucose (Misc Panel) 141H 11/05/19 19:45: Bedside Glucose (Misc Panel) 138H 11/06/19 05:18: Immature Granulocyte % (Auto) 0.5, Neutrophils (%) (Auto) 68.9H, Lymphocytes (%) (Auto) 18.4L, Monocytes (%) (Auto) 7.4H, Eosinophils (%) (Auto) 4.4H, Basophils (%) (Auto) 0.4, Neutrophils # (Auto) 5.2, Lymphocytes # (Auto) 1.4L, Monocytes # (Auto) 0.6, Eosinophils # (Auto) 0.3, Basophils # (Auto) 0.0, Nucleated Red Blood Cells % (auto) 0.0, Anion Gap 7L, Glomerular Filtration Rate 17.8L, Calcium Level 8.8 11/06/19 07:59: Bedside Glucose (Misc Panel) 75L CBC/BMP Laboratory Tests 11/06/19 05:18 Microbiology Microbiology 11/04/19 Urine Culture - Final, Complete 11/04/19 Blood Culture - Preliminary, Resulted No growth after 24 hours . All specim... 11/04/19 Blood Culture - Preliminary, Resulted No growth after 24 hours . All specim... JOSEF HARPER MD Nov 06, 2019 10:38
[2019-11-06 14:00] VITALS: BP 126/57
[2019-11-06] MEDS: ROSUVASTATIN 10 MG TAB (CRESTOR) PO SCH (18:00)
[2019-11-06] MEDS: ASPIRIN 81 MG ENTERIC TAB PO SCH (18:01)
[2019-11-06 22:00] VITALS: BP 144/66
[2019-11-07 06:00] VITALS: BP 126/58
[2019-11-07 06:11] LABS: BASO % 0.4 % (0.0-1.0); EOS # 0.4 10^3/uL (0.0-0.5); EOS % 5.7 % (0.0-3.0); HEMATOCRIT 35.8 % (42.0-52.0); HEMOGLOBIN 11.7 g/dl (13.5-17.5); LYMPH # 1.3 10^3/uL (1.5-5.0); MEAN CORPUSCULAR HGB CONC 32.7 g/dl (32.0-36.5); MONO # 0.6 10^3/uL (0.0-0.8); MONO % 8.6 % (0.0-5.0); NEUTROPHILS # 4.8 10^3/uL (1.5-8.5); NEUTROPHILS % 66.9 % (36.0-66.0); PLATELET COUNT, AUTOMATED 143 10^3/uL (150-450); RED BLOOD COUNT 3.77 10^6/uL (4.30-6.10); WHITE BLOOD COUNT 7.2 10^3/uL (4.0-10.0)
[2019-11-07 06:33] LABS: CALCIUM LEVEL 8.6 MG/DL (8.8-10.2); CREATININE FOR GFR 3.41 MG/DL (0.70-1.30); GLOMERULAR FILTRATION RATE 18.4 (>35); POTASSIUM SERUM 4.5 MEQ/L (3.5-5.1)
--- NOTE | 2019-11-07 07:24 | IPN ---
DATE: 11/06/2019 SUBJECTIVE: The patient was seen and examined at the bedside today morning. The patient is afebrile, hemodynamically stable. He reports that he is feeling better today as compared with yesterday. His diuretics were held yesterday but before that he had already received a dose of Lasix. Creatinine has bumped up from 3 to 3.5 today. OBJECTIVE: Vital signs: Temperature is 97.1 degrees Fahrenheit, blood pressure 128/60, pulse is 71, respiratory rate of 18, saturating 96% on room air. Intake and output: Urine output recorded is 800 mL yesterday. Weight in the bed scale was 81.1 kg yesterday. PHYSICAL EXAMINATION: General: The patient is awake, alert, oriented times three, laying in bed, in no apparent distress. Head and neck exam: Extraocular muscles intact. Pupils equally round and reactive to light. Mucous membranes are moist. Neck is supple. There is no JVD. Cardiovascular: S1, S2, regular rate. No edema of the bilateral lower extremities. Respiratory: Chest is clear to auscultation bilaterally. Bilateral equal air entry. No rales or rhonchi. Abdomen: Soft, positive bowel sounds. Nontender. No organomegaly. Musculoskeletal: No clubbing or cyanosis. Pulses are 2+. FELT PULLER: No focal deficit, power is 5/5 in all extremities. LABORATORY REVIEW: CBC showed WBC of 7.6, hemoglobin 11.9, platelets are 155. BMP showed sodium 142, potassium 4.2, chloride 108, bicarbonate 27, BUN 73, creatinine 3.5, it was 3 yesterday. CURRENT INPATIENT MEDICATIONS: The patient's medications were all reviewed by me. His diuretic was stopped yesterday, however he had already received a dose. No other change in the medications today as compared with yesterday. ASSESSMENT/PLAN: 1. Acute kidney injury superimposed on chronic kidney disease stage IV. The patient's creatinine had bumped up again to 3.5 now. Continue to hold the diuretic at this time. I am going to get the patient's bladder scan done at the bedside as well. 2. Hypertension. Continue current dose of metoprolol and nifedipine. Hold the diuretics. 3. Diabetes mellitus type 2. Continue insulin sliding scale along with insulin Levemir. 4. BPH with lower urinary tract symptoms. Continue Flomax and finasteride and do the bladder scan. If the bladder scan shows postvoid residual more than 300 mL, the patient will need a Sargent catheter placement.
[2019-11-07] MEDS: HumaLOG INSULIN (NovoLOG) PER UNIT SC SCH ×4 (09:51→20:24)
[2019-11-07] MEDS: LEVEMIR (INSULIN DETEMIR) 1 UNITS/0.01ML SC SCH ×2 (09:52→20:32)
[2019-11-07] MEDS: FINASTERIDE 5 MG TAB PO SCH (09:52)
[2019-11-07] MEDS: DOCUSATE SODIUM 100 MG CAP PO SCH ×2 (09:54→20:34)
[2019-11-07] MEDS: TAMSULOSIN 0.4 MG CAP PO SCH ×2 (09:54→20:34)
[2019-11-07] MEDS: METOPROLOL SUCC *XL* 25MG TAB (TopROL *XL*) PO SCH (09:54)
[2019-11-07] MEDS: PANTOPRAZOLE 40MG TAB (PROTONIX) PO SCH (09:54)
[2019-11-07] MEDS: NIFEdipine 30 MG XL TAB PO SCH (09:55)
[2019-11-07] MEDS: HEPARIN SOD (PORCINE) 5000 UNITS/ML VIAL (J1644 PER 1000UNITS) SC SCH ×2 (09:55→20:33)
--- NOTE | 2019-11-07 10:51 | IPNPDOC ---
Subjective Date Seen The patient was seen on 11/07/19. Subjective Chief Complaint/HPI Patient not cleared by physical therapy for discharge Also bladder sono was done. He has the residual volume more than 300s often but patient Lambert able to urinate and is refusing Sargent are straight cath as per patient, he has a urethral strictures General: Denies: ROS Unobtainable, Chills, Night Sweats, Fatigue, Malaise, Normal Appetite, Other Symptoms Constitutional: Denies: Chills, Fever, Malaise, Night Sweats, Weakness, Fatigue, Weight Loss, Lethargy, Other Skin: Denies: Rash, Lesions, Jaundice, Bruising, Itching, Dry, Breakdown, Nail Changes, Other Pulmonary: Denies: Dyspnea, Cough, Pleuritic Chest Pain, Other Symptoms Gastrointestinal: Denies: Nausea, Vomiting, Abdominal Pain, Diarrhea, Constipation, Melena, Hematochezia, Other Symptoms Musculoskeletal: Denies: Neck Pain, Back Pain, Shoulder Pain, Arm Pain, Hand Pain, Leg Pain, Foot Pain, Joint Pain, Muscle Pain, Spasms, Other Symptoms Neurological: Denies: Weakness, Numbness, Incoordination, Change in speech, Confusion, Seizures, Other Symptoms Objective Physical Examination Eye Exam: Negative: Sclera icteric Neck Exam: Positive: Supple; Negative: JVD, thyromegaly Chest Exam: Positive: Clear to auscultation, Normal air movement Heart Exam: Positive: Rate Normal, Regular Rhythm, Normal S1, Normal S2; Negative: Murmurs, Rubs Abdomen Exam: Positive: Normal bowel sounds, Soft; Negative: Tenderness, Hepatospenomegaly Extremity Exam: Negative: Clubbing, Cyanosis, Edema Skin Exam: Positive: Nl turgor and temperature; Negative: Breakdown, Lesion Neuro Exam: Positive: Normal Speech, Strength at 5/5 X4 ext, Normal Tone Assessment /Plan Problems (1) Orthostatic hypotension Status: Resolved Problem Text: Supine hypertension with orthostatic hypotension possibly due to autonomic neuropathy Shortness of orthostatic hypotension has resolved Can be discharged home or to rehabilitation facility once cleared by physical therapy (2) Chronic kidney disease Status: Acute Problem Text: CKD [address] Landeros on the consults No signs of uremia, no fluid retention, electrolytes ok. continue diuretics. (3) HTN (hypertension) Status: Chronic Problem Text: Continue present meds (4) UTI (urinary tract infection) Status: Acute Problem Text: . 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 Patient has been shaking, weak, with frequent falls at home. He was found to have or thostatic hypotension in the ED. The last week he has been very weak and shakey. he had fallen 5 times mostly in the mornings soon after getting up from bed. Went to see PMD Dr Tan and was found o have hypotension on standing ans was sent to the ED. In the ED he was found to have supine hypertension with large drop on standing up when he would become symptomatic and weak and shakey. He was admitted for orthostatic hypotension with gait instability and falls. Gait instability and falls from orthostatic hypotension and possible diabetic neuropathy part of the weakness is due to progressing CKD. PT and OT bull called possible rehab placement DC tele (6) Urinary retention with incomplete bladder emptying Status: Chronic Problem Text: Dr. Bello has been called for urology consultation Will await urology input Consult was called and nephrology's request secondary to worsening renal function, likely secondary to urinary obstruction Repeat labs in a.m. Plan/VTE VTE Prophylaxis Ordered?: Yes VS, I&O, 24H, Fishbone Vital Signs/I&O Vital Signs Date Time Temp Pulse Resp B/P (MAP) Pulse Ox O2 Delivery O2 Flow Rate FiO2 11/07/19 09:54 88 131/56 11/07/19 06:00 98.4 16 99 Room Air I&O- Last 24 Hours up to 6 AM 11/07/19 05:59 Intake Total 780 ml Output Total 10 ml Balance 770 ml Laboratory Data 24H LABS Laboratory Tests 2 11/06/19 11:51: Bedside Glucose (Misc Panel) 317H 11/06/19 16:37: Bedside Glucose (Misc Panel) 189H 11/06/19 20:26: Bedside Glucose (Misc Panel) 141H 11/07/19 05:31: Immature Granulocyte % (Auto) 0.4, Neutrophils (%) (Auto) 66.9H, Lymphocytes (%) (Auto) 18.0L, Monocytes (%) (Auto) 8.6H, Eosinophils (%) (Auto) 5.7H, Basophils (%) (Auto) 0.4, Neutrophils # (Auto) 4.8, Lymphocytes # (Auto) 1.3L, Monocytes # (Auto) 0.6, Eosinophils # (Auto) 0.4, Basophils # (Auto) 0.0, Nucleated Red Blood Cells % (auto) 0.0, Anion Gap 5L, Glomerular Filtration Rate 18.4L, Calcium Level 8.6L CBC/BMP Laboratory Tests 11/07/19 05:31 Microbiology Microbiology 11/04/19 Urine Culture - Final, Complete 11/04/19 Blood Culture - Preliminary, Resulted No Growth after 48 hours. All Specime... 11/04/19 Blood Culture - Preliminary, Resulted No Growth after 48 hours. All Specime... JOSEF HARPER MD Nov 07, 2019 10:51
[2019-11-07 14:00] VITALS: BP 135/62
[2019-11-07] MEDS: ASPIRIN 81 MG ENTERIC TAB PO SCH (17:52)
[2019-11-07] MEDS: ROSUVASTATIN 10 MG TAB (CRESTOR) PO SCH (17:53)
[2019-11-07] MEDS: ACETAMINOPHEN TAB 650MG DOSE (2X325MG) PO PRN (20:34)
[2019-11-07] MEDS: MIRALAX *UNIT DOSE* 17GM PACKET PO SCH (20:48)
[2019-11-07 22:00] VITALS: BP 157/67
[2019-11-08 06:00] VITALS: BP 137/62
[2019-11-08 06:03] LABS: BASO % 0.2 % (0.0-1.0); EOS # 0.1 10^3/uL (0.0-0.5); EOS % 1.1 % (0.0-3.0); HEMATOCRIT 37.4 % (42.0-52.0); HEMOGLOBIN 12.3 g/dl (13.5-17.5); LYMPH # 0.5 10^3/uL (1.5-5.0); LYMPH % 5.5 % (24.0-44.0); MEAN CORPUSCULAR HEMOGLOBIN 31.4 pg (27.0-33.0); MEAN CORPUSCULAR HGB CONC 32.9 g/dl (32.0-36.5); MEAN CORPUSCULAR VOLUME 95.4 fl (80.0-96.0); MONO # 0.6 10^3/uL (0.0-0.8); MONO % 6.5 % (0.0-5.0); NEUTROPHILS # 7.3 10^3/uL (1.5-8.5); NEUTROPHILS % 86.2 % (36.0-66.0); PLATELET COUNT, AUTOMATED 155 10^3/uL (150-450); RED BLOOD COUNT 3.92 10^6/uL (4.30-6.10); WHITE BLOOD COUNT 8.5 10^3/uL (4.0-10.0)
[2019-11-08] MEDS: ACETAMINOPHEN TAB 650MG DOSE (2X325MG) PO PRN ×2 (06:14→13:15)
[2019-11-08 06:23] LABS: ALBUMIN 3.1 GM/DL (3.2-5.2); BILIRUBIN,TOTAL 0.5 MG/DL (0.2-1.0); CALCIUM LEVEL 8.6 MG/DL (8.8-10.2); CREATININE FOR GFR 3.32 MG/DL (0.70-1.30); POTASSIUM SERUM 4.4 MEQ/L (3.5-5.1)
[2019-11-08] MEDS: HumaLOG INSULIN (NovoLOG) PER UNIT SC SCH ×4 (07:30→20:57)
[2019-11-08] MEDS: FINASTERIDE 5 MG TAB PO SCH (09:01)
[2019-11-08] MEDS: LEVEMIR (INSULIN DETEMIR) 1 UNITS/0.01ML SC SCH ×2 (09:01→21:00)
[2019-11-08] MEDS: HEPARIN SOD (PORCINE) 5000 UNITS/ML VIAL (J1644 PER 1000UNITS) SC SCH ×2 (09:02→22:05)
[2019-11-08] MEDS: TAMSULOSIN 0.4 MG CAP PO SCH ×2 (09:02→22:04)
[2019-11-08] MEDS: CALCITRIOL 0.25 MCG CAP (S0169) PO SCH (09:02)
[2019-11-08] MEDS: DOCUSATE SODIUM 100 MG CAP PO SCH ×2 (09:03→22:04)
[2019-11-08] MEDS: MIRALAX *UNIT DOSE* 17GM PACKET PO SCH (09:03)
[2019-11-08] MEDS: NIFEdipine 30 MG XL TAB PO SCH (09:03)
[2019-11-08] MEDS: PANTOPRAZOLE 40MG TAB (PROTONIX) PO SCH (09:03)
[2019-11-08] MEDS: METOPROLOL SUCC *XL* 25MG TAB (TopROL *XL*) PO SCH (09:03)
--- NOTE | 2019-11-08 10:16 | IPN ---
DATE OF SERVICE: 11/07/2019 SUBJECTIVE: The patient was seen and examined at the bedside today morning. He is afebrile, hemodynamically stable. There is no significant improvement in the renal function. Creatinine is still at 3.4. I was called by the patient's RN last night that the patient's postvoid residua. was more than 400 mL. Straight cath was ordered but the patient refused the straight catheterization because of history of some urethral procedure in the past and he was advised by urology not to have a straight cath done, and he has history of suprapubic catheterization in the past as well. The patient tries to empty is bladder but he still has post residual running in 300-400 mL. OBJECTIVE: Vital Signs: Temperature is 97.5 degrees Fahrenheit, blood pressure 135/62, pulse is 82, respiratory rate of 18, saturating 98% on room air. Intake and Output: Urine output recorded since overnight is 1350 mL. Weight in the bed scale is not available. PHYSICAL EXAMINATION: General: The patient is awake, alert, oriented times two, laying in the bed, in no apparent distress. Head and Neck Exam: Extraocular muscles intact. Pupils equally round and reactive to light. Mucous membranes are moist. Neck is supple. There is no jugular venous distention (JVD). Cardiovascular: S1, S2, regular rate. No edema of the bilateral lower extremities. Respiratory: Chest is clear to auscultation bilaterally. Bilateral equal air entry. No rales or rhonchi. Abdomen: Soft, positive bowel sounds. Nontender. No organomegaly. Genitourinary: Bladder is not palpable. Musculoskeletal: No clubbing or cyanosis. Pulses are 2+. Central Nervous System (CLAIMS ADJUSTER CROP): No focal deficit. Power is 5/5 in all extremities. LAB REVIEW: CBC showed WBC 7.2, hemoglobin 11.7, platelets of 143. BMP showed sodium 141, potassium 4.5, chloride 107, bicarbonate 29, BUN 71, creatinine 3.4, calcium 8.6. CURRENT INPATIENT MEDICATIONS: The patient's medications were all reviewed by me. There is no change in the medications today as compared with yesterday. ASSESSMENT AND PLAN: 1. Acute kidney injury superimposed on chronic kidney disease, stage IV. The patient's creatinine is 3.4. He had high postvoid residual. The patient is going to be seen by urology. 2. Urinary retention. The patient has history of BPH. He is on Flomax and finasteride, and he has history of suprapubic catheterization. The patient is pending evaluation by urology for possible intervention if needed. 3. Hypertension. Continue current dose of metoprolol and nifedipine. 4. 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 Continue current dose of calcitriol 0.25 mcg by mouth every other day.
--- NOTE | 2019-11-08 10:56 | IPNPDOC ---
Subjective Date Seen The patient was seen on 11/08/19. Subjective Chief Complaint/HPI Patient comfortable in no distress. Offers no new complaints, awaiting urology evaluation General: Denies: ROS Unobtainable, Chills, Night Sweats, Fatigue, Malaise, Normal Appetite, Other Symptoms Constitutional: Denies: Chills, Fever, Malaise, Night Sweats, Weakness, Fatigue, Weight Loss, Lethargy, Other Pulmonary: Denies: Dyspnea, Cough, Pleuritic Chest Pain, Other Symptoms Cardiovascular: Denies: Chest Pain, Palpitations, Orthopnea, Paroxysmal Noc. Dy spnea, Edema, Lt Headedness, Other Symptoms Gastrointestinal: Denies: Nausea, Vomiting, Abdominal Pain, Diarrhea, Constipation, Melena, Hematochezia, Other Symptoms Neurological: Denies: Weakness, Numbness, Incoordination, Change in speech, Confusion, Seizures, Other Symptoms Objective Physical Examination General Exam: Positive: Alert, Cooperative Eye Exam: Negative: Sclera icteric ENT Exam: Positive: Atraumatic, Mucous membr. moist/pink Neck Exam: Positive: Supple; Negative: JVD, thyromegaly Chest Exam: Positive: Clear to auscultation, Normal air movement Heart Exam: Positive: Rate Normal, Regular Rhythm, Normal S1, Normal S2; Negative: Murmurs, Rubs Abdomen Exam: Positive: Normal bowel sounds, Soft; Negative: Tenderness, Hepatospenomegaly Extremity Exam: Negative: Clubbing, Cyanosis, Edema Skin Exam: Positive: Nl turgor and temperature; Negative: Breakdown, Lesion Neuro Exam: Positive: Normal Speech, Strength at 5/5 X4 ext, Normal Tone Assessment /Plan Problems (1) Orthostatic hypotension Status: Resolved Problem Text: Supine hypertension with orthostatic hypotension possibly due to autonomic neuropathy Shortness of orthostatic hypotension has resolved Can be discharged home or to rehabilitation facility once cleared by physical therapy (2) Chronic kidney disease Status: Acute Problem Text: CKD [address] Landeros on the consults No signs of uremia, no fluid retention, electrolytes ok. continue diuretics. (3) HTN (hypertension) Status: Chronic Problem Text: Continue present meds (4) UTI (urinary tract infection) Status: Acute Problem Text: . 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 Patient has been shaking, weak, with frequent falls at home. He was found to have orthostatic hypotension in the ED. The last week he has been very weak and shakey. he had fallen 5 times mostly in the mornings soon after getting up from bed. Went to see PMD Dr Tan and was found o have hypotension on standing ans was sent to the ED. In the ED he was found to have supine hypertension with large drop on standing up when he would become symptomatic and weak and shakey. He was admitted for orthostatic hypotension with gait instability and falls. Gait instability and falls from orthostatic hypotension and possible diabetic neuropathy part of the weakness is due to progressing CKD. PT and OT eval called possible rehab placement DC tele (6) Urinary retention with incomplete bladder emptying Status: Chronic Problem Text: Dr. Bello has been called for urology consultation Awaiting urology recommendations Zaheer follow-up appreciated Repeat labs in a.m. Plan/VTE VTE Prophylaxis Ordered?: Yes VS, I&O, 24H, Fishbone Vital Signs/I&O Vital Signs Date Time Temp Pulse Resp B/P (MAP) Pulse Ox O2 Delivery O2 Flow Rate FiO2 11/08/19 09:03 126/65 11/08/19 09:03 97 11/08/19 06:00 97.9 19 100 Room Air I&O- Last 24 Hours up to 6 AM0 11/08/19 06:00 Intake Total 720 ml Output Total 1650 ml Balance -930 ml Laboratory Data 24H LABS Laboratory Tests 2 11/07/19 11:41: Bedside Glucose (Misc Panel) 187H 11/07/19 16:51: Bedside Glucose (Misc Panel) 190H 11/08/19 05:41: Immature Granulocyte % (Auto) 0.5, Neutrophils (%) (Auto) 86.2H, Lymphocytes (%) (Auto) 5.5L, Monocytes (%) (Auto) 6.5H, Eosinophils (%) (Auto) 1.1, Basophils (%) (Auto) 0.2, Neutrophils # (Auto) 7.3, Lymphocytes # (Auto) 0.5L, Monocytes # (Auto) 0.6, Eosinophils # (Auto) 0.1, Basophils # (Auto) 0.0, Nucleated Red Blood Cells % (auto) 0.0, Anion Gap 9, Glomerular Filtration Rate 19.0L, Calcium Level 8.6L, Total Bilirubin 0.5, Aspartate Amino Transf (AST/SGOT) 47H, Alanine Aminotransferase (ALT/SGPT) 44, Alkaline Phosphatase 155H, Total Protein 7.0, Albumin 3.1L, Albumin/Globulin Ratio 0.79L CBC/BMP Laboratory Tests 11/08/19 05:41 Microbiology Microbiology 11/04/19 Urine Culture - Final, Complete 11/04/19 Blood Culture - Preliminary, Resulted No Growth after 72 hours. All specime... 11/04/19 Blood Culture - Preliminary, Resulted No Growth after 72 hours. All specime... JOSEF HARPER MD Nov 08, 2019 10:56
--- NOTE | 2019-11-08 11:52 | IPNPDOC ---
Subjective Review oF Systems Chief Complaint The patient is a 84-year-old male admitted with a reason for visit of Chronic Kidney Disease,Orthostatic Hypotension. Events since Last Encounter He continues voiding with good outputs. Objective Physical Examination Heart Exam: Positive: Rate Normal, Regular Rhythm, Normal S1, Normal S2; Negative: Murmurs, Rubs ABDOMEN EXAM: Normal bowel sounds, BS Hyperactive, BS Hypoactive, Soft, Tenderness, Hepatospenomegaly, Mass, Hernia, Other (His bladder is not palpably distended) Vital Signs/I&O Vital Signs Date Time Temp Pulse Resp B/P (MAP) Pulse Ox O2 Delivery O2 Flow Rate FiO2 11/08/19 09:03 126/65 11/08/19 09:03 97 11/08/19 06:00 97.9 19 100 Room Air I&O- Last 24 Hours up to 6 AM 11/08/19 06:00 Intake Total 720 ml Output Total 1650 ml Balance -930 ml Laboratory Data Labs 24H Laboratory Tests 2 11/07/19 16:51: Bedside Glucose (Misc Panel) 190H 11/08/19 05:41: Immature Granulocyte % (Auto) 0.5, Neutrophils (%) (Auto) 86.2H, Lymphocytes (%) (Auto) 5.5L, Monocytes (%) (Auto) 6.5H, Eosinophils (%) (Auto) 1.1, Basophils (%) (Auto) 0.2, Neutrophils # (Auto) 7.3, Lymphocytes # (Auto) 0.5L, Monocytes # (Auto) 0.6, Eosinophils # (Auto) 0.1, Basophils # (Auto) 0.0, Nucleated Red Blood Cells % (auto) 0.0, Anion Gap 9, Glomerular Filtration Rate 19.0L, Calcium Level 8.6L, Total Bilirubin 0.5, Aspartate Amino Transf (AST/SGOT) 47H, Alanine Aminotransferase (ALT/SGPT) 44, Alkaline Phosphatase 155H, Total Protein 7.0, Albumin 3.1L, Albumin/Globulin Ratio 0.79L CBC/BMP Laboratory Tests 11/08/19 05:41 FSBS Laboratory Tests Test 11/07/19 16:51 Range/Units Bedside Glucose (Misc Panel) 190 83-110 MG/DL Microbiology Microbiology 11/04/19 Urine Culture - Final, Complete 11/04/19 Blood Culture - Preliminary, Resulted No Growth after 72 hours. All specime... 11/04/19 Blood Culture - Preliminary, Resulted No Growth after 72 hours. All specime... Assessment/Plan Date Seen The patient was seen on 11/08/19. Problems (1) Orthostatic hypotension Status: Resolved (2) Chronic kidney disease Status: Acute (3) HTN (hypertension) Status: Chronic (4) UTI (urinary tract infection) Status: Acute (5) Frequent falls Status: Acute (6) Urinary retention with incomplete bladder emptying Status: Chronic Urology Problem Text: Given his stable creatinine and continued lack of symptoms, I will continue close observation for now. Plan/VTE VTE Prophylaxis Ordered?: Yes MARILYNN SALDAÑA MD Nov 08, 2019 11:52
[2019-11-08 14:00] VITALS: BP 159/70
[2019-11-08] MEDS: ASPIRIN 81 MG ENTERIC TAB PO SCH (17:04)
[2019-11-08] MEDS: ROSUVASTATIN 10 MG TAB (CRESTOR) PO SCH (17:04)
--- NOTE | 2019-11-08 20:30 | IPN ---
DATE: 11/08/2019 Mr. Reeves is seen this morning on his bedside. He is laying in the bed at present and reports feeling much better since admission. He was admitted with generalized weakness and falls at home. He was felt to be dehydrated and had acute renal failure superimposed on chronic kidney disease. His diuretics have been on hold and blood pressure has improved. The patient reports that he has been ambulating in the hallway. PHYSICAL EXAMINATION: Temperature 97.9 degrees Fahrenheit, heart rate about 100 per minute and respiratory rate 18 per minute. Blood pressure 137/62 mmHg and oxygen saturation 100% on room air. Head is atraumatic. Neck is supple and JVD mildly elevated. There is no oral thrush or ulcers. Heart sounds are tachycardiac and lungs sound clear to auscultation. Abdomen soft and nontender and bowel sounds are normal. Extremities without any cyanosis or clubbing. Neurologically he is awake, alert and oriented times three. Today's labs show WBC count 8.5, hemoglobin 12.3 and hematocrit 37.4. Sodium 143, potassium 4.4, CO2 25, BUN 63 and creatinine 3.32. Glucose 94 and calcium 8.6. PROBLEMS: 1. Acute renal failure superimposed on chronic kidney disease. Kidney function has gradually improved and the patient has no uremic symptoms. 2. Urinary retention. The patient has history of BPH with recurrent urinary retention. He was seen by urology and felt to be not in need for an indwelling catheter at this time. He continues to urinate, however did have a higher amount of postvoid residual. We will continue to follow urology instructions. As long as his kidney function is improving, I think it is okay to watch. 3. Hypotension. Blood pressure has improved and medications have been adjusted. His diuretics were held with significant improvement in the blood pressure and kidney function. He is still off diuretics for now and continues with other medications including metoprolol and nifedipine.
[2019-11-08] MEDS ORDERED: LEVEMIR (INSULIN DETEMIR) 1 UNITS/0.01ML SC ONE (21:45)
[2019-11-08 22:00] VITALS: BP 102/58
[2019-11-09 06:00] VITALS: BP 107/56
[2019-11-09 06:10] LABS: BASO % 0.3 % (0.0-1.0); EOS % 0.3 % (0.0-3.0); HEMATOCRIT 35.5 % (42.0-52.0); HEMOGLOBIN 11.6 g/dl (13.5-17.5); LYMPH # 0.7 10^3/uL (1.5-5.0); MEAN CORPUSCULAR HEMOGLOBIN 31.3 pg (27.0-33.0); MEAN CORPUSCULAR HGB CONC 32.7 g/dl (32.0-36.5); MEAN CORPUSCULAR VOLUME 95.7 fl (80.0-96.0); MONO # 0.6 10^3/uL (0.0-0.8); MONO % 9.3 % (0.0-5.0); NEUTROPHILS # 4.6 10^3/uL (1.5-8.5); NEUTROPHILS % 78.4 % (36.0-66.0); PLATELET COUNT, AUTOMATED 138 10^3/uL (150-450); RED BLOOD COUNT 3.71 10^6/uL (4.30-6.10); WHITE BLOOD COUNT 5.9 10^3/uL (4.0-10.0)
[2019-11-09 06:37] LABS: ALBUMIN 2.7 GM/DL (3.2-5.2); BILIRUBIN,TOTAL 0.6 MG/DL (0.2-1.0); CALCIUM LEVEL 9.1 MG/DL (8.8-10.2); CREATININE FOR GFR 3.3 MG/DL (0.70-1.30); GLOMERULAR FILTRATION RATE 19.1 (>35); POTASSIUM SERUM 4.2 MEQ/L (3.5-5.1)
[2019-11-09] MEDS: HumaLOG INSULIN (NovoLOG) PER UNIT SC SCH ×4 (07:30→21:00)
[2019-11-09] MEDS: MIRALAX *UNIT DOSE* 17GM PACKET PO SCH (10:02)
[2019-11-09] MEDS: NIFEdipine 30 MG XL TAB PO SCH (10:02)
[2019-11-09] MEDS: METOPROLOL SUCC *XL* 25MG TAB (TopROL *XL*) PO SCH (10:03)
[2019-11-09] MEDS: TAMSULOSIN 0.4 MG CAP PO SCH ×2 (10:03→21:22)
[2019-11-09] MEDS: PANTOPRAZOLE 40MG TAB (PROTONIX) PO SCH (10:03)
[2019-11-09] MEDS: FINASTERIDE 5 MG TAB PO SCH (10:03)
[2019-11-09] MEDS: DOCUSATE SODIUM 100 MG CAP PO SCH ×2 (10:03→21:22)
[2019-11-09] MEDS: HEPARIN SOD (PORCINE) 5000 UNITS/ML VIAL (J1644 PER 1000UNITS) SC SCH ×2 (10:04→21:21)
[2019-11-09] MEDS: LEVEMIR (INSULIN DETEMIR) 1 UNITS/0.01ML SC SCH ×2 (10:41→21:22)
--- NOTE | 2019-11-09 10:58 | IPNPDOC ---
Subjective Date Seen The patient was seen on 11/09/19. Subjective Chief Complaint/HPI No new complaints at the present time, was seen by urology yesterday General: Denies: ROS Unobtainable, Chills, Night Sweats, Fatigue, Malaise, Normal Appetite, Other Symptoms Constitutional: Denies: Chills, Fever, Malaise, Night Sweats, Weakness, Fatigue, Weight Loss, Lethargy, Other Pulmonary: Denies: Dyspnea, Cough, Pleuritic Chest Pain, Other Symptoms Cardiovascular: Denies: Chest Pain, Palpitations, Orthopnea, Paroxysmal Noc. Dyspnea, Edema, Lt Headedness, Other Symptoms Gastrointestinal: Denies: Nausea, Vomiting, Abdominal Pain, Diarrhea, Constipation, Melena, Hematochezia, Other Symptoms Musculoskeletal: Denies: Neck Pain, Back Pain, Shoulder Pain, Arm Pain, Hand Pain, Leg Pain, Foot Pain, Joint Pain, Muscle Pain, Spasms, Other Symptoms Neurological: Denies: Weakness, Numbness, Incoordination, Change in speech, Confusion, Seizures, Other Symptoms Objective Physical Examination Eye Exam: Negative: Sclera icteric ENT Exam: Positive: Atraumatic, Mucous membr. moist/pink Neck Exam: Positive: Supple Chest Exam: Positive: Clear to auscultation, Normal air movement Heart Exam: Positive: Rate Normal, Regular Rhythm, Normal S1, Normal S2; Negative: Murmurs, Rubs Abdomen Exam: Positive: Normal bowel sounds, Soft; Negative: Tenderness, Hepatospenomegaly Extremity Exam: Positive: Normal pulses Skin Exam: Positive: Nl turgor and temperature Neuro Exam: Positive: Normal Speech, Strength at 5/5 X4 ext, Normal Tone Assessment /Plan Problems (1) Orthostatic hypotension Status: Resolved Problem Text: Supine hypertension with orthostatic hypotension possibly due to autonomic neuropathy Shortness of orthostatic hypotension has resolved Possible discharge to rehabilitation facility, discussed with social work today to arrange and facilitated the discharge (2) Chronic kidney disease Status: Acute Problem Text: CKD-IV Patient being followed by Dr. Goldberg Continue present care. Patient's renal functions are stable Further recommendations as per nephrology (3) HTN (hypertension) Status: Chronic Problem Text: Continue present meds (4) UTI (urinary tract infection) Status: Acute Problem Text: . 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 Patient has been shaking, weak, with frequent falls at home. He was found to have orthostatic hypotension in the ED. The last week he has been very weak and shakey. he had fallen 5 times mostly in the mornings soon after getting up from bed. Went to see PMD Dr Tan and was found o have hypotension on standing ans was sent to the ED. In the ED he was found to have supine hypertension with large drop on standing up when he would become symptomatic and weak and shakey. He was admitted for orthostatic hypotension with gait instability and falls. Gait instability and falls from orthostatic hypotension and possible diabetic neuropathy part of the weakness is due to progressing CKD. PT and OT bull called possible rehab placement DC tele (6) Urinary retention with incomplete bladder emptying Status: Chronic Problem Text: Dr. Mcknight has seen patient yesterday and again he was called and discussed today A commends only conservative management and observation No urology intervention at the present time Renal functions are stable. BUN of 60, creatinine 3.30 Plan/VTE VTE Prophylaxis Ordered?: Yes VS, I&O, 24H, [facility] Vital Signs/I&O Vital Signs Date Time Temp Pulse Resp B/P (MAP) Pulse Ox O2 Delivery O2 Flow Rate FiO2 11/09/19 10:03 85 11/09/19 10:02 143/65 11/09/19 06:00 98.6 16 98 Room Air I&O- Last 24 Hours up to 6 AM 11/09/19 06:00 Intake Total 840 ml Output Total 500 ml Balance 340 ml Laboratory Data 24H LABS Laboratory Tests 2 11/09/19 05:25: Immature Granulocyte % (Auto) 0.7, Neutrophils (%) (Auto) 78.4H, Lymphocytes (%) (Auto) 11.0L, Monocytes (%) (Auto) 9.3H, Eosinophils (%) (Auto) 0.3, Basophils (%) (Auto) 0.3, Neutrophils # (Auto) 4.6, Lymphocytes # (Auto) 0.7L, Monocytes # (Auto) 0.6, Eosinophils # (Auto) 0.0, Basophils # (Auto) 0.0, Nucleated Red Blood Cells % (auto) 0.0, Anion Gap 5L, Glomerular Filtration Rate 19.1L, Calcium Level 9.1, Total Bilirubin 0.6, Aspartate Amino Transf (AST/SGOT) 93H, Alanine Aminotransferase (ALT/SGPT) 90H, Alkaline Phosphatase 159H, Total Protein 7.0, Albumin 2.7L, Albumin/Globulin Ratio 0.63L CBC/BMP Laboratory Tests 11/09/19 05:25 Microbiology Microbiology 11/04/19 Urine Culture - Final, Complete 11/04/19 Blood Culture - Preliminary, Resulted No Growth after 72 hours. All specime... 11/04/19 Blood Culture - Preliminary, Resulted No Growth after 72 hours. All specime... JOSEF HARPER MD Nov 09, 2019 10:58
[2019-11-09 14:00] VITALS: BP 143/64
[2019-11-09] MEDS ORDERED: MOM 30ML SUSPENSION UDC PO ONE (16:45)
[2019-11-09] MEDS: ROSUVASTATIN 10 MG TAB (CRESTOR) PO SCH (18:05)
[2019-11-09] MEDS: ASPIRIN 81 MG ENTERIC TAB PO SCH (18:05)
[2019-11-09] MEDS: ACETAMINOPHEN TAB 650MG DOSE (2X325MG) PO PRN (23:17)
[2019-11-10 06:00] VITALS: BP 144/89
[2019-11-10 06:03] LABS: EOS % 0.2 % (0.0-3.0); HEMATOCRIT 36.1 % (42.0-52.0); HEMOGLOBIN 11.8 g/dl (13.5-17.5); LYMPH # 0.3 10^3/uL (1.5-5.0); LYMPH % 4.7 % (24.0-44.0); MEAN CORPUSCULAR HGB CONC 32.7 g/dl (32.0-36.5); MEAN CORPUSCULAR VOLUME 94.8 fl (80.0-96.0); MONO # 0.1 10^3/uL (0.0-0.8); MONO % 1.8 % (0.0-5.0); NEUTROPHILS # 5.1 10^3/uL (1.5-8.5); NEUTROPHILS % 92.8 % (36.0-66.0); PLATELET COUNT, AUTOMATED 135 10^3/uL (150-450); RED BLOOD COUNT 3.81 10^6/uL (4.30-6.10); WHITE BLOOD COUNT 5.5 10^3/uL (4.0-10.0)
[2019-11-10 06:26] LABS: CALCIUM LEVEL 8.3 MG/DL (8.8-10.2); CREATININE FOR GFR 3.32 MG/DL (0.70-1.30); POTASSIUM SERUM 4.6 MEQ/L (3.5-5.1)
[2019-11-10] MEDS: HumaLOG INSULIN (NovoLOG) PER UNIT SC SCH ×4 (07:30→20:46)
[2019-11-10] MEDS: MIRALAX *UNIT DOSE* 17GM PACKET PO SCH (09:00)
[2019-11-10] MEDS: DOCUSATE SODIUM 100 MG CAP PO SCH ×2 (09:00→20:45)
[2019-11-10 09:07] VITALS: BP 110/44
[2019-11-10] MEDS: CALCITRIOL 0.25 MCG CAP (S0169) PO SCH (09:09)
[2019-11-10] MEDS: TAMSULOSIN 0.4 MG CAP PO SCH ×2 (09:09→20:45)
[2019-11-10] MEDS: FINASTERIDE 5 MG TAB PO SCH (09:09)
[2019-11-10] MEDS: PANTOPRAZOLE 40MG TAB (PROTONIX) PO SCH (09:09)
[2019-11-10] MEDS: HEPARIN SOD (PORCINE) 5000 UNITS/ML VIAL (J1644 PER 1000UNITS) SC SCH ×2 (09:10→20:45)
[2019-11-10] MEDS ORDERED: DOCU100C16 PO (10:27)
[2019-11-10] MEDS ORDERED: PEG1POW PO (10:27)
--- NOTE | 2019-11-10 10:47 | IPN ---
DATE: 11/09/2019 Mr. Reeves is seen this morning on his bedside. He is still very weak and could not get up by himself. He denies any nausea or vomiting. He has no dyspnea or chest pain. His diuretics have been on hold since admission due to acute renal failure and hypotension with dizziness. Kidney function has been improving nicely. On physical examination, temperature 98.6 degrees Fahrenheit, heart rate 88 per minute and respiratory rate 16 per minute. Blood pressure 107/56 mmHg and oxygen saturation 98% on room air. Head is atraumatic. Neck supple and without jugular venous distention (JVD) or thyroid enlargement. Heart sounds are regular and lungs sound clear to auscultation. Abdomen: Soft and nontender. Bowel sounds are normal. Extremities: Without any cyanosis or clubbing. He does not have any peripheral edema. Neurologically, he is at his baseline mentation without a focal deficit, but still very weak. Today's labs show WBC count 5.9, hemoglobin 11.6, hematocrit 35.5 and platelets 138. Sodium 139, potassium 4.2, CO2 27, BUN 60 and creatinine 3.3. AST is up to 93, ALT 90 and alkaline phosphatase 159. PROBLEMS: 1. Acute renal failure. No significant change in kidney function over the last couple of days. His electrolytes remain on hold. Electrolytes are within normal range and volume status is still reasonably well-compensated. 2. Hypertension. His blood pressure is kind of borderline and he is currently without any diuretics. He remains on low-dose beta sarah and calcium channel sarah. 3. Anemia. His anemia is mild and stable and does not need any urgent intervention.
[2019-11-10] MEDS: LEVEMIR (INSULIN DETEMIR) 1 UNITS/0.01ML SC SCH ×2 (11:11→20:45)
[2019-11-10] MEDS: NIFEdipine 30 MG XL TAB PO SCH (11:12)
[2019-11-10] MEDS: METOPROLOL SUCC *XL* 25MG TAB (TopROL *XL*) PO SCH (11:18)
[2019-11-10 14:00] VITALS: BP 147/76
[2019-11-10] MEDS: ACETAMINOPHEN TAB 650MG DOSE (2X325MG) PO PRN (15:38)
--- NOTE | 2019-11-10 15:59 | IPN ---
DATE: 11/10/2019 Mr. Reeves is seen this morning on his bedside. He is very tired and lying in the bed with eyes closed. He reports that he had several loose stools through the night and feeling very weak today. He was arousable but fell asleep right away. He denies any fever or chills. His last bowel movement was last night, and since morning he did not have any. PHYSICAL EXAMINATION: Temperature 98.4 degrees Fahrenheit, heart rate 92 per minute, respiratory rate 20 per minute, blood pressure 110/44 mm of mercury, and oxygen saturation 98% on room air. Head is atraumatic. Neck supple and without jugular venous distention (JVD) or thyroid enlargement. Heart sounds are irregular in rhythm. Lungs sound clear to auscultation. Abdomen: Soft and nontender, and bowel sounds are normal. Extremities without any cyanosis or clubbing. Neurologically, he is arousable but feel asleep right away. Today's labs show WBC count 5.5, hemoglobin 11.8, and hematocrit 36. Sodium 140, potassium 4.6, CO2 of 23, BUN 61, and creatinine 3.32. PROBLEMS: 1. Acute renal failure superimposed on chronic kidney disease. No change in kidney function noticed over the last couple of days. His GFR has been essentially between 18-19 mL per minute. He did have loose stools yesterday and could be somewhat dehydrated. I have asked the nursing staff to encourage for increased oral intake. If he gets more diarrhea, then he should probably needed intravenous (IV) fluid. 2. Anemia. At present his anemia is stable and does not need any urgent intervention. 3. Diarrhea. Etiology remains uncertain. The patient reports several loose stools through the night but none this morning so far. I will defer to hospitalist service for ordering his stool studies if his diarrhea persists.
[2019-11-10 17:17] VITALS: BP 142/92
--- NOTE | 2019-11-10 17:44 | IPNPDOC ---
Text Note Date of Service The patient was seen on 11/10/19. NOTE Subjective: Feels very weak and tired today. Complains of body aches increased from last night, Poor appetite. Spiked a temp of 101.7 this pm. Did work with PT this am. Physical Exam: Vitals: As below General Exam: Positive: Alert, Cooperative, No Acute Distress Eye Exam: Positive: PERRLA, Conjunctiva & lids normal, EOMI; Negative: Sclera icteric ENT Exam: Positive: Atraumatic, Mucous membr. moist/pink, Pharynx Normal Neck Exam: Positive: Supple; Negative: JVD, thyromegaly Chest Exam: Positive: Clear to auscultation, Normal air movement Heart Exam: Positive: Rate Normal, Regular Rhythm, Normal S1, Normal S2; Negative: Murmurs, Rubs Abdomen Exam: Positive: Normal bowel sounds, Soft; Negative: Tenderness, Hepatospenomegaly Extremity Exam: Negative: Clubbing, Cyanosis, Edema Skin Exam: Positive: Nl turgor and temperature; Negative: Breakdown, Lesion Neuro Exam: Positive: Normal Speech, Strength at 5/5 X4 ext, Normal Tone Psych Exam: Positive: Memory Intact, Oriented x 3 Labs and Radiology: reviewed. 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 Patient has been shaking, weak, with frequent falls at home. He was found to have orthostatic hypotension in the ED. The last week he has been very weak and shakey. he had fallen 5 times mostly in the mornings soon after getting up from bed. Went to see PMD Dr Tan and was found o have hypotension on standing ans was sent to the ED. In the ED he was found to have supine hypertension with large drop on standing up when he would become symptomatic and weak and shakey. He was admitted for orthostatic hypotension with gait instability and falls. At present patient needs to to go to subacute rehab as per PT. He is now havaing generalized achiness, fever and poor appetite. His sugars have been running low for the past 2 days. Fever and body aches will get a resp panel. UA, Uc as has chronic urinary retension. tylenol prn Gait instability and falls from orthostatic hypotension and diabetic neuropathy part of the weakness is due to progressing CKD. Sub acute rehab as per PT Supine hypertension with orthostatic hypotension possibly due to autonomic neuropathy now no hypertension. CKD 4 stable No signs of uremia, no fluid retention, electrolytes ok. continue diuretics. Chronic urinary retention with incomplete emptying as per urology along as he continues to void no need for godoy As creatinine remains stable we can monitor for now Chronic anemia due to CKD hh stable Hypertension continue home meds Diabetes sugars lower last 2 days, poor oral intake lispro and levemir as per sliding scale. CAD/CABG continue asa, statin, betablocker BPH continue flomax and finasteride. DVT prophylaxis in place. VS,Fishbone, I+O VS, Fishbone, I+O Laboratory Tests 11/10/19 05:47 Vital Signs Date Time Temp Pulse Resp B/P (MAP) Pulse Ox O2 Delivery O2 Flow Rate FiO2 11/10/19 11:18 89 11/10/19 11:12 113/53 11/10/19 10:17 98.4 11/10/19 09:07 20 96 Room Air I&O- Last 24 Hours up to 6 AM0 11/10/19 06:00 Intake Total 960 ml Output Total 850 ml Balance 110 ml LIO NICOLE MD Nov 10, 2019 17:44
[2019-11-10] MEDS: ROSUVASTATIN 10 MG TAB (CRESTOR) PO SCH (17:48)
[2019-11-10] MEDS: ASPIRIN 81 MG ENTERIC TAB PO SCH (17:48)
[2019-11-10 22:00] VITALS: BP 123/74
[2019-11-11] MEDS: ACETAMINOPHEN TAB 650MG DOSE (2X325MG) PO PRN ×2 (05:24→14:21)
[2019-11-11 06:00] VITALS: BP 134/89
[2019-11-11 07:03] LABS: HEMATOCRIT 35.3 % (42.0-52.0); HEMOGLOBIN 11.5 g/dl (13.5-17.5); MEAN CORPUSCULAR HEMOGLOBIN 31.2 pg (27.0-33.0); MEAN CORPUSCULAR HGB CONC 32.6 g/dl (32.0-36.5); MEAN CORPUSCULAR VOLUME 95.7 fl (80.0-96.0); PLATELET COUNT, AUTOMATED 131 10^3/uL (150-450); RED BLOOD COUNT 3.69 10^6/uL (4.30-6.10); WHITE BLOOD COUNT 11.5 10^3/uL (4.0-10.0)
[2019-11-11 07:13] LABS: ATYPICAL LYMPH 1 % (0-5); LYMPHOCYTES 5 % (16-44); MONOCYTES 2 % (0-5); NEUTROPHILS 88 % (28-66); PLATELET ESTIMATE DECREASED (NORMAL)
[2019-11-11 07:15] LABS: POIKILOCYTOSIS 1+
[2019-11-11 07:25] LABS: CALCIUM LEVEL 8.5 MG/DL (8.8-10.2); CREATININE FOR GFR 3.73 MG/DL (0.70-1.30); GLOMERULAR FILTRATION RATE 16.6 (>35); POTASSIUM SERUM 4.9 MEQ/L (3.5-5.1)
[2019-11-11] MEDS: HumaLOG INSULIN (NovoLOG) PER UNIT SC SCH ×5 (07:30→21:00)
[2019-11-11] MEDS: HEPARIN SOD (PORCINE) 5000 UNITS/ML VIAL (J1644 PER 1000UNITS) SC SCH ×2 (09:15→21:41)
[2019-11-11] MEDS: MIRALAX *UNIT DOSE* 17GM PACKET PO SCH (09:15)
[2019-11-11] MEDS: FINASTERIDE 5 MG TAB PO SCH (09:15)
[2019-11-11] MEDS: TAMSULOSIN 0.4 MG CAP PO SCH ×2 (09:16→21:40)
[2019-11-11] MEDS: NIFEdipine 30 MG XL TAB PO SCH (09:16)
[2019-11-11] MEDS: LEVEMIR (INSULIN DETEMIR) 1 UNITS/0.01ML SC SCH ×2 (09:16→21:00)
[2019-11-11] MEDS: DOCUSATE SODIUM 100 MG CAP PO SCH ×2 (09:16→21:40)
[2019-11-11] MEDS: METOPROLOL SUCC *XL* 25MG TAB (TopROL *XL*) PO SCH (09:16)
[2019-11-11] MEDS: PANTOPRAZOLE 40MG TAB (PROTONIX) PO SCH (09:16)
[2019-11-11 11:43] LABS: INFLUENZA A AMPLIFICATION NEGATIVE (NEGATIVE); INFLUENZA B AMPLIFICATION NEGATIVE (NEGATIVE)
[2019-11-11] MEDS ORDERED: NS 1,000 ML IV SCH (12:45)
--- NOTE | 2019-11-11 13:59 | IPN ---
DATE: 11/11/2019 SUBJECTIVE: James is seen and examined this morning at the bedside. I found him to be doing poorly. He spiked a temperature yesterday at 5:00 p.m. of 101.7. His white count has also increased from 5.5 up to 11.5. The patient was able to tell me his name, the year, but was unable to tell me further about his clinical condition. Nursing staff reports that he refused his breakfast and has had minimal oral intake. Labs show worsening renal function and there was one incontinent bowel movement recorded yesterday, unsure if this was diarrheal or not. Temperature T-max 101.7, T-current 99.8, pulse 107, respiratory rate 19, blood pressure 134/89, saturating 99% on room air. Intake yesterday was 1 liter, urine output was not recorded, incontinent voids was recorded and incontinent bowel movement was recorded. GENERAL: Patient is seen lying in bed, head of the bed elevated. Elderly male, drowsy, awakens to verbal and tactile stimulus, but appears fatigued and does not offer much conversation. He makes eye contact. Extraocular muscles are intact. The tongue is dry. The neck is supple. The jugular veins are not elevated. Heart sounds are regular, S1-S2. Lungs are clear to auscultation bilaterally. No crackle, rale or rhonchus. The abdomen is soft. There are scattered bowel sounds. He does not grimace to palpation. The extremities are negative for any edema, clubbing or cyanosis. Neurologic: He is drowsy but arousable to verbal and tactile stimulus, offers short one word answer after a lot of prompting, and is able to state name and year, but does not offer much else in the way of conversation. LABORATORIES: Sodium 134, potassium 4.9, bicarbonate 24, BUN 73, creatinine 3.7, hemoglobin 11.5, white count 11.5. INPATIENT MEDICATIONS: I ordered normal saline at 60 mL an hour for 1 liter. His insulin was adjusted by the primary team. The remainder of his medications are unchanged from prior. PROBLEMS: 1. Acute kidney injury (RICHY) on chronic kidney disease (CKD) stage IV. The patient has baseline creatinine of about 2.8-3.0. His renal function has slightly worsened over the past 24 hours. Nursing staff reports minimal oral intake. He refused breakfast. He spiked a fever of 101.5 yesterday afternoon and also has a rising white count. The primary team has already ordered urine catheter and I am starting the patient on normal saline at 60 mL an hour for 1 liter as he looks dry to me. I am also discontinuing his daily MiraLAX as there is reported diarrhea. 2. History of chronic urinary retention with incomplete emptying. He is on finasteride and Flomax. Straight cath was ordered by the primary team and we will see if there is any significant retention. 3. Fever spike and leukocytosis. T-max yesterday afternoon 101.5. White count has risen as well from 5.5 to 11.5. Urine studies are pending. If diarrhea is persistent, would also suggest to get stool studies.
[2019-11-11 14:00] VITALS: BP 120/78
[2019-11-11] MEDS: ASPIRIN 81 MG ENTERIC TAB PO SCH (18:35)
[2019-11-11] MEDS: ROSUVASTATIN 10 MG TAB (CRESTOR) PO SCH (18:35)
[2019-11-11] MEDS ORDERED: ACETAMINOPHEN 500 MG TAB PO ONE (19:00)
[2019-11-11] MEDS ORDERED: PIPERACILLIN/TAZOBACTAM SOD 3.375 GM in D5W MINI-BAG PLUS 50 ML IV ONE (19:00)
--- NOTE | 2019-11-11 20:33 | REPVR ---
PROCEDURE INFORMATION: Exam: CT Chest Without Contrast Exam date and time: 11/11/2019 8:05 PM Age: 84 years old Clinical indication: Fever; Additional info: Fever unknown source TECHNIQUE: Imaging protocol: Computed tomography of the chest without contrast. Radiation optimization: All CT scans at this facility use at least one of these dose optimization techniques: automated exposure control; mA and/or kV adjustment per patient size (includes targeted exams where dose is matched to clinical indication); or iterative reconstruction. COMPARISON: CR PORTABLE CHEST X-RAY 11/04/2019 12:59 PM FINDINGS: Lungs: Bibasilar atelectasis. Lungs otherwise clear. Pleural space: Unremarkable. No pneumothorax. No pleural effusion. Heart: Status post CABG. Severe coronary artery calcifications. Mediastinum: Small sliding hiatal hernia. Aorta: The aorta demonstrates moderate atherosclerotic calcification. Lymph nodes: Unremarkable. No enlarged lymph nodes. Bones/joints: Status post median sternotomy. The spine demonstrates mild degenerative changes. Soft tissues: Unremarkable. IMPRESSION: 1. No acute findings. 2. Status post CABG. 3. Small sliding hiatal hernia. Electronically signed by: Saulo Yang On 11/11/2019 20:32:55 PM
--- NOTE | 2019-11-11 20:38 | REPVR ---
PROCEDURE INFORMATION: Exam: CT Abdomen And Pelvis Without Contrast Exam date and time: 11/11/2019 8:05 PM Age: 84 years old Clinical indication: Fever; Additional info: Fever unknown source TECHNIQUE: Imaging protocol: Computed tomography of the abdomen and pelvis without contrast. Radiation optimization: All CT scans at this facility use at least one of these dose optimization techniques: automated exposure control; mA and/or kV adjustment per patient size (includes targeted exams where dose is matched to clinical indication); or iterative reconstruction. COMPARISON: CT ABD PELVIS W/O CONTRAST 05/15/2018 3:34 PM FINDINGS: Mediastinum: A small sliding hiatal hernia is present. Liver: Examination of the liver demonstrates a lobular surface contour, and enlargement of the left and caudate lobes, findings most likely consistent with cirrhosis. Gallbladder and bile ducts: There has been a cholecystectomy. Pancreas: There is diffuse pancreatic atrophy. Spleen: There is mild splenomegaly with a maximum span of 13 centimeters. No focal abnormalities demonstrated. Splenule adjacent to the spleen. Adrenals: There is bilateral adrenal hyperplasia. Kidneys and ureters: Bilateral renal cysts measure up to 5.2 cm in the left kidney. No complex features. No follow-up suggested. Findings are stable in comparison to the prior study. Stomach and bowel: Unremarkable. No obstruction. No mucosal thickening. Appendix: No evidence of appendicitis. Intraperitoneal space: Unremarkable. No free air. No significant fluid collection. Vasculature: The aorta demonstrates moderate atherosclerotic calcification. Lymph nodes: Unremarkable. No enlarged lymph nodes. Bladder: Sargent catheter within the bladder which demonstrates marked thickening of the bladder wall. Finding may be related to the nondistention however bladder neoplasm and/or infection not excluded. Reproductive: The prostate gland demonstrates mild hyperplasia. Bones/joints: Severe central spinal stenosis L3-L4, L4-L5 and moderate central spinal stenosis L5-S1. Soft tissues: Unremarkable. IMPRESSION: 1. Examination of the liver demonstrates a lobular surface contour, and enlargement of the left and caudate lobes, findings most likely consistent with cirrhosis. 2. There is mild splenomegaly with a maximum span of 13 centimeters. No focal abnormalities demonstrated. 3. A small sliding hiatal hernia is present. 4. There has been a cholecystectomy. 5. There is diffuse pancreatic atrophy. 6. Bilateral renal cysts measure up to 5.2 cm in the left kidney. No complex features. No follow-up suggested. Findings are stable in comparison to the prior study. 7. There is bilateral adrenal hyperplasia. 8. Sargent catheter within the bladder which demonstrates marked thickening of the bladder wall. Finding may be related to the nondistention however bladder neoplasm and/or infection not excluded. 9. Mild prostatic hyperplasia. Electronically signed by: Saulo Yang On 11/11/2019 20:37:52 PM
[2019-11-11] MEDS ORDERED: VANCOMYCIN HCL 1,000 MG, VIAL MATE ADAPTER 1 EACH in D5W 250 ML IV ONE (21:00)
[2019-11-11 22:00] VITALS: BP 115/79
[2019-11-11] MEDS ORDERED: VANCOMYCIN HCL 500 MG in D5W MINI-BAG PLUS 100 ML IV ONE (22:00)
[2019-11-12 06:00] VITALS: BP 130/63
[2019-11-12 08:20] LABS: HEMATOCRIT 35.7 % (42.0-52.0); HEMOGLOBIN 11.6 g/dl (13.5-17.5); MEAN CORPUSCULAR HEMOGLOBIN 30.8 pg (27.0-33.0); MEAN CORPUSCULAR HGB CONC 32.5 g/dl (32.0-36.5); MEAN CORPUSCULAR VOLUME 94.7 fl (80.0-96.0); RED BLOOD COUNT 3.77 10^6/uL (4.30-6.10); WHITE BLOOD COUNT 16.9 10^3/uL (4.0-10.0)
[2019-11-12 08:28] LABS: PLATELET COUNT, AUTOMATED 72 10^3/uL (150-450)
[2019-11-12] MEDS ORDERED: SODIUM CHLORIDE 0.9% 1000ML IV ONE (09:00)
[2019-11-12] MEDS ORDERED: VANCOMYCIN HCL 1,000 MG, VIAL MATE ADAPTER 1 EACH in D5W 250 ML IV SCH (09:00)
[2019-11-12] MEDS: HEPARIN SOD (PORCINE) 5000 UNITS/ML VIAL (J1644 PER 1000UNITS) SC SCH (09:00)
[2019-11-12 09:05] LABS: ALBUMIN 2.1 GM/DL (3.2-5.2); CALCIUM LEVEL 8.2 MG/DL (8.8-10.2); CREATININE FOR GFR 4.28 MG/DL (0.70-1.30); GLOMERULAR FILTRATION RATE 14.2 (>35); POTASSIUM SERUM 5.2 MEQ/L (3.5-5.1); TOTAL PROTEIN 6.1 GM/DL (6.4-8.2)
[2019-11-12] MEDS: FINASTERIDE 5 MG TAB PO SCH (09:48)
[2019-11-12] MEDS: TAMSULOSIN 0.4 MG CAP PO SCH ×2 (09:50→21:04)
[2019-11-12] MEDS: LEVEMIR (INSULIN DETEMIR) 1 UNITS/0.01ML SC SCH ×2 (09:50→21:00)
[2019-11-12] MEDS: CALCITRIOL 0.25 MCG CAP (S0169) PO SCH (09:50)
[2019-11-12] MEDS: HumaLOG INSULIN (NovoLOG) PER UNIT SC SCH ×4 (09:50→21:00)
[2019-11-12] MEDS: DOCUSATE SODIUM 100 MG CAP PO SCH ×2 (09:50→21:00)
[2019-11-12] MEDS: PANTOPRAZOLE 40MG TAB (PROTONIX) PO SCH (09:50)
[2019-11-12] MEDS: NIFEdipine 30 MG XL TAB PO SCH (09:51)
[2019-11-12] MEDS: METOPROLOL SUCC *XL* 25MG TAB (TopROL *XL*) PO SCH (09:51)
[2019-11-12 10:46] LABS: LYMPHOCYTES 6 % (16-44); MONOCYTES 5 % (0-5); NEUTROPHILS 62 % (28-66); PLATELET ESTIMATE DECREASED (NORMAL); TOXIC VACUOLATION 2+
[2019-11-12 10:47] LABS: ANISOCYTOSIS 1+; DOHLE BODIES 1+; TOXIC GRANULATION 1+
--- NOTE | 2019-11-12 13:08 | IPNPDOC ---
Text Note Date of Service The patient was seen on 11/11/19. NOTE Subjective: Patient very weak today, moaning and groaning. Does not want to open his eyes, denies any abdominal pain, denies any cough or sob, denies any dysuria, has urinary incontinence. Had fever of 101.5 last afternoon. resp panel, flu swab negative. Could not send UA as he is incontinent and does not want us to Straight cath him. Complains of body aches increased from last night, Poor appetite. Physical Exam: Vitals: As below General Exam: Positive: Alert, Cooperative, No Acute Distress Eye Exam: Positive: PERRLA, Conjunctiva & lids normal, EOMI; Negative: Sclera icteric ENT Exam: Positive: Atraumatic, Mucous membr. moist/pink, Pharynx Normal Neck Exam: Positive: Supple; Negative: JVD, thyromegaly Chest Exam: Positive: Clear to auscultation, Normal air movement Heart Exam: Positive: Rate Normal, Regular Rhythm, Normal S1, Normal S2; Negative: Murmurs, Rubs Abdomen Exam: Positive: Hyperperistaltic bowel sounds, Soft, nontender Negative: Tenderness, Hepatospenomegaly Extremity Exam: Negative: Clubbing, Cyanosis, Edema Skin Exam: Positive: Nl turgor and temperature; Negative: Breakdown, Lesion Neuro Exam: Positive: Normal Speech, Strength at 5/5 X4 ext, Normal Tone Psych Exam: Positive: Memory Intact, Oriented x 3 Labs and Radiology: reviewed. 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 Patient has been shaking, weak, with frequent falls at home. He was found to have orthostatic hypertension in the ED. The last week he has been very weak and shakey. he had fallen 5 times mostly in the mornings soon after getting up from bed. Went to see PMD Dr Tan and was found o have hypotension on standing ans was sent to the ED. In the ED he was found to have supine hypertension with large drop on standing up when he would become symptomatic and weak and shakey. He was admitted for orthostatic hypotension with gait instability and falls. At present patient needs to to go to subacute rehab as per PT. He is now havaing generalized achiness, fever and poor appetite. His sugars have been running low for the past 2 days. Fever and body aches resp panel, Flu negative UA, Uc as has chronic urinary retention. tylenol prn will get urine by straight cath Gait instability and falls from orthostatic hypotension and diabetic neuropathy part of the weakness is due to progressing CKD. Sub acute rehab as per PT Supine hypertension with orthostatic hypotension possibly due to autonomic neuropathy now no hypertension. CKD 4 stable No signs of uremia, no fluid retention, electrolytes ok. continue diuretics. Chronic urinary retention with incomplete emptying as per urology along as he continues to void no need for godoy As creatinine remains stable we can monitor for now Chronic anemia due to CKD hh stable Hypertension continue home meds Diabetes sugars lower last 2 days, poor oral intake lispro and levemir as per sliding scale. CAD/CABG continue asa, statin, betablocker BPH continue flomax and finasteride. DVT prophylaxis in place. VS,Fishbone, I+O VS, Fishbone, I+O Laboratory Tests 11/11/19 06:07 Vital Signs Date Time Temp Pulse Resp B/P (MAP) Pulse Ox O2 Delivery O2 Flow Rate FiO2 11/11/19 10:54 98.1 11/11/19 09:16 107 126/80 11/11/19 06:00 19 99 Room Air I&O- Last 24 Hours up to 6 AM 11/11/19 05:59 Intake Total 1320 ml Balance 1320 ml LIO NICOLE MD Nov 11, 2019 12:26
[2019-11-12] MEDS: PIPERACILLIN/TAZOBACTAM SOD 2.25 GM in D5W MINI-BAG PLUS 50 ML IV SCH ×2 (13:10→21:05)
--- NOTE | 2019-11-12 13:22 | IPNPDOC ---
Text Note Date of Service The patient was seen on 11/12/19. NOTE Subjective: Patient very weak today, moaning and groaning. complains of aches and pains all over the body but no localized area of discomfort. denies any cough or phlegm, denies any abdominal pain , nausea or vomtiing. has godoy in palce Physical Exam: Vitals: As below General Exam: Positive: uncomfortable, somnolent but easily arousable, Cooperative, No Acute Distress Eye Exam: Positive: PERRLA, Conjunctiva & lids normal, EOMI; Negative: Sclera icteric ENT Exam: Positive: Atraumatic, Mucous membr. moist/pink, Pharynx Normal Neck Exam: Positive: Supple; Negative: JVD, thyromegaly Chest Exam: Positive: Clear to auscultation, Normal air movement Heart Exam: Positive: Rate Normal, Regular Rhythm, Normal S1, Normal S2; Negative: Murmurs, Rubs Abdomen Exam: Positive: Hyperperistaltic bowel sounds, Soft, nontender Negative: Tenderness, Hepatospenomegaly Extremity Exam: Negative: Clubbing, Cyanosis, Edema Skin Exam: Positive: Nl turgor and temperature; Negative: Breakdown, Lesion Psych Exam: Positive: Memory Intact, Oriented x 3 Labs and Radiology: reviewed. 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 Patient has been shaking, weak, with frequent falls at home. He was found to have orthostatic hypertension in the ED. The last week he has been very weak and shakey. he had fallen 5 times mostly in the mornings soon after getting up from bed. Went to see PMD Dr Tan and was found o have hypotension on standing ans was sent to the ED. In the ED he was found to have supine hypertension with large drop on standing up when he would become symptomatic and weak and shakey. He was admitted for orthostatic hypotension with gait instability and falls. At present patient needs to to go to subacute rehab as per PT. He is now havaing generalized achiness, fever and poor appetite. His sugars have been running low for the past 2 days. Fever and body aches, lacticacidosis, rising WBC ?source of infection. resp panel, Flu negative, CT chest , abdomen and pelvis negative for any pnaumonia or abscess. UA after st cath clean. tylenol prn echo ordered has pacemaker blood cultures sent. consult ID empirically started on zosyn and vanco MRSA scren negative. RICHY on CKD 4 with hyperkalemia renal function has worsened. No signs of uremia, no fluid retention, electrolytes ok. will stop diuretics. seems to be dehydrated at present started on bicarb gtt Chronic urinary retention with incomplete emptying has history of urethral stricture has surgical correction done with urethral opening now at the proximal penile shaft on inferior aspect Dr Pham helped to delineate the anatomy and he personally placed straight cath which passed easily without any obstruction 16 Fr Godoy was later inserted by the nurses with no problem poor outpur due to poor intake. started on IVF. Gait instability and falls from orthostatic hypotension and diabetic neuropathy part of the weakness is due to progressing CKD. Sub acute rehab as per PT Supine hypertension with orthostatic hypotension possibly due to autonomic neuropathy now no hypertension. nefedipine with hold parameters. Chronic anemia due to CKD hh stable Hypertension continue home meds Diabetes sugars lower last 2 days, poor oral intake lispro and levemir as per sliding scale. dose lowered. However today i expect sugars to be high as he was started on bicarb gtt. CAD/CABG continue asa, statin, betablocker BPH continue flomax and finasteride. Cirrhosis of Liver as per CT abdomen Thrombocytopenia new hold heparin possibly due to infection. DVT prophylaxis in place. VS,Fishbone, I+O VS, Fishbone, I+O Laboratory Tests 11/12/19 08:04 Vital Signs Date Time Temp Pulse Resp B/P (MAP) Pulse Ox O2 Delivery O2 Flow Rate FiO2 11/12/19 09:51 87 127/57 11/12/19 09:30 97.7 11/12/19 06:00 16 97 Room Air I&O- Last 24 Hours up to 6 AM 11/12/19 06:00 Intake Total 260 ml Output Total 1500 ml Balance -1240 ml LIO NICOLE MD Nov 12, 2019 13:22
[2019-11-12] MEDS: SODIUM BICARBONATE 150 MEQ in D5W 1,000 ML IV SCH ×2 (14:02→21:03)
--- NOTE | 2019-11-12 16:02 | IPN ---
DATE OF SERVICE: 11/12/2019 SUBJECTIVE: I was in discussion with the hospitalist team yesterday evening, Dr. Farmer, regarding the patient's recurrent fever spikes, rising white count, and lethargy, advised to start empiric antibiotics pending infectious workup. Lactic acid was also drawn and returned elevated. The patient has had worsening renal function, new metabolic acidosis rising white count and he complains to me today of generalized aches and pains all over but denies any localizing symptoms. Specifically denies belly pain, diarrhea, shortness of breath. Temperature T-max 102.9 yesterday at 7:00 p.m., T-current 97.3, pulse 85, respiratory rate 16, blood pressure 130/63, saturating 97% on room air. Intake yesterday was 640 urine, output yesterday was 1350, weight in the bed scale today is not recorded. General: The patient is seen lying down, head of the bed slightly raised, elderly male, awake and alert, appears tired and fatigued. Extraocular muscles are intact. The tongue is dry. Neck is supple. Jugular veins were not elevated. Heart sounds are regular S1-S2. There is a pacemaker present in the left chest wall. Lungs are clear to auscultation bilaterally. No crackle or rale. The abdomen is soft and nontender. There are bowel sounds. Genitourinary shows Sargent catheter draining clear yellow urine. Extremities are negative for clubbing, cyanosis or edema. Skin: Normal temperature and turgor. Neurologic: The patient was more alert today as compared to yesterday. He cooperated with physical exam and answered some simple questions appropriately and was oriented to person, place and situation. LABS: White count 16.9, hemoglobin 11.6, platelet 72, sodium 135, potassium 5.2, bicarbonate 19, BUN 91, creatinine 4.2, lactic acid 4.8, repeat lactic acid 3.4. Procalcitonin pending. Repeat blood cultures pending. CT of chest, abdomen and pelvis reviewed. Lobular liver pancreatic atrophy simple renal cyst decompressed bladder with Sargent. INPATIENT MEDICATIONS: The patient was started on renally dosed vancomycin and Zosyn. I started him on a sodium bicarbonate drip at 150 mL an hour. I discontinued his nifedipine. Remainder of medications are unchanged from prior. PROBLEMS: 1. Acute kidney injury superimposed on chronic kidney disease (CKD) stage 4. Baseline creatinine is 2.8. Renal function is worsening in the setting of infection with etiology unknown. He clinically appears dry. He has a elevated lactic acid, rising WBC count with significant bandemia. He also has new metabolic acidosis associated with mild hyperkalemia. I am starting him on sodium bicarbonate drip at 150 mL an hour for 2 liters. He was in urinary retention and had a Sargent catheter placed yesterday. 2. SIRS. Patient has high-grade fevers, rising WBC count, lactic acidosis and associated renal failure. His initial blood cultures were negative. Repeat blood cultures are pending. CT of the chest, abdomen and pelvis (noncontrast) was unrevealing. He has a pacemaker. Echocardiogram is pending and infectious diseases' has been consulted and the patient has empirically been started on renally dosed Zosyn and vancomycin. 3. Hyperkalemia in the setting of worsening renal failure and new metabolic acidosis. He is started on sodium bicarbonate containing fluids. At present there is no urgent indication for hemodialysis, however, we will be in discussion with his Shiela if his renal function continues to worsen. 4. Anion gap metabolic acidosis (lactic acidosis) infectious etiology workup as above. The patient is also being started on sodium bicarbonate drip. 5. Chronic urinary retention. The patient had retention of 800 mL of urine yesterday. He now has a Sargent catheter placed. Urinalysis was noted without any yamileth sign of infection. 6. Hypertension. In the setting of worsening infection lactic acidosis and borderline hemodynamics recurrent fevers, I have discontinued his nifedipine. 7. Thrombocytopenia. It is new and it is worsening, platelet count is down to 72, consider stopping heparin subcutaneous, discussed with primary team. 8. Plan of care discussed at length with Dr. Farmer await infectious diseases' recommendations.
[2019-11-12] MEDS ORDERED: LIDOCAINE 1% MDV 20ML VIAL As Ordered ONE (16:10)
[2019-11-12] MEDS: ACETAMINOPHEN TAB 650MG DOSE (2X325MG) PO PRN (16:16)
[2019-11-12] MEDS: ASPIRIN 81 MG ENTERIC TAB PO SCH (17:53)
[2019-11-12] MEDS: ROSUVASTATIN 10 MG TAB (CRESTOR) PO SCH (17:53)
[2019-11-12] MEDS: VANICREAM MOISTURIZING SKIN CREAM 113GM TUBE TOP SCH (21:00)
--- NOTE | 2019-11-12 21:49 | IPN ---
DATE: 11/12/2019 INFECTIOUS DISEASE CONSULTATION Asked to consult by hospitalist for evaluation of fever in a patient who was hospitalized on 11/04/2019 and spiked a temperature on 11/10/2019. Mr. Reeves is an 84-year-old gentleman who came to the emergency room on 11/04/2019 after he had been complaining of weakness. The patient had fallen frequently at home. He was found to have orthostatic hypotension in the emergency room and was admitted for further workup. During his first 6 days of hospitalization from 11/04/2019 to 11/10/2019, he was afebrile. He did not get any antibiotics and he received IV fluids. On 11/10/2019, the patient had a temperature of 101.7, a white count of 11.5. Urinalysis was benign with only 4 white cells and 5 red cells. Blood cultures were drawn. Respiratory panel was negative. The patient was started on broad-spectrum antibiotics with IV vancomycin and Zosyn after blood cultures were obtained. He had a CT abdomen and pelvis as well as a chest CT that were both nonrevealing for any site of infection. Influenza A and B, respiratory syncytial virus (RSV) were negative and methicillin-resistant Staphylococcus aureus (MRSA) screen were all negative on 11/11/2019 and 11/12/2019. 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 PAST SURGICAL HISTORY: CABG, coronary artery stents, pacemaker, aortic valve replacement and multiple surgical excision of cancers. FAMILY HISTORY: Diabetes and heart disease. SOCIAL HISTORY: He denies smoking, alcohol or drug use. REVIEW OF SYSTEMS: The patient states he is aching all over, especially his neck and low back. He had a fever. He is not comfortable. He does not know what is wrong with him. He has no cough or shortness of breath. No nausea, vomiting or diarrhea. No dysuria or hematuria, but he had urinary retention and now has a Sargent catheter. PHYSICAL EXAMINATION: On physical exam, he is a sick looking gentleman in moderate discomfort, maximum temperature (T max) yesterday was 102.9. Today he has been afebrile with a temperature of 97.3, pulse 85, respirations 16, blood pressure 130/63, oxygen saturation (O2 sat) 97% on room air. Heart: Normal S1, S2 with a systolic ejection murmur 2/6 at the left upper sternal border. Lungs are clear. No wheezes, rales or rhonchi. Abdomen: Soft, nontender. No hepatosplenomegaly. Extremities: No clubbing, cyanosis or edema. Skin: Has multiple actinic keratosis lesions. He has very dry feet bilaterally. No open lesions. He has a chest wall abscess measuring about 2 x 2 cm with purulent discharge that was drained. Oropharynx is dry with no thrush, no lesions. Neck: Has moderate tenderness to flexion. Leg extension is also painful. ALLERGIES: SULFA. MEDICATIONS: Sodium bicarbonate, Zosyn 2.25 grams IV every 8 hours, insulin sliding scale, docusate 100 mg by mouth twice a day, tamsulosin 0.4 mg by mouth twice a day, finasteride 5 mg by mouth daily, metoprolol 25 mg by mouth daily, Crestor 20 mg by mouth daily, aspirin 81 mg by mouth daily, calcitriol 0.25 mcg by mouth every other day, Tylenol as needed. IMAGING STUDIES: Chest x-ray was done on 11/04/2019 showed no acute pulmonary disease and CT chest, abdomen and pelvis done on 11/11/2019 showed findings consistent with liver cirrhosis, cholecystectomy, diffuse pancreatic hypertrophy, mild splenomegaly, hiatus hernia, bilateral renal cysts measuring up to 5 cm in the left kidney. No complex collection. Bilateral adrenal hyperplasia and Sargent catheter in place. Chest CT showed no acute findings. LABORATORY: White count today is 16.9, hemoglobin 11.6, hematocrit 35.7, platelets 72, which is a drop in 4 days from 155, 62% neutrophils, 27% bands, 6% lymphocytes. Sodium 135, potassium 5.2, chloride 104, bicarbonate 19, BUN 91, creatinine 4.28, glucose 186, lactic acid was 4.8, currently 3.4, calcium 8.2. AST 61, ALT 51, alkaline phosphatase 187, total protein 6.1, albumin 2.1. Blood cultures 11/04/2019 were negative times two. Urine culture was negative. Respiratory panel on 11/10/2019 was negative. Blood cultures on 11/11 are pending. IMPRESSION: This is an 84-year-old gentleman admitted with acute on chronic kidney disease, dehydration, orthostatic hypotension who was afebrile with a normal white count on admission on 11/04/2019, developed a fever on 11/10/2019 with leukocytosis, bandemia and has clinically worsened with decreased appetite, neck pain, generalized body aches. The patient has a history of valve replacement, of TAVR and, therefore, is at risk of endocarditis. He also complains of neck pain, and therefore, I am concerned about meningitis. His CT chest, abdomen and pelvis are not suggestive of any infectious process in the lungs or abdomen. Urinalysis is benign. He is currently on vancomycin and Zosyn. PLAN: I discussed the case with the hospitalist, and I am concerned about his neck stiffness. I would suggest obtaining a lumbar puncture since we do not have any other obvious source of infection. I would suggest discontinuing Zosyn and switching him to Rocephin 2 grams IV every 12 hours. May also consider adding ampicillin if the patient continues with fever. Please try to obtain lumbar puncture as soon as possible. He does not have of mental status changes to suggest encephalitis at this point. A wound Gram stain and culture have been obtained from his chest abscess. This should not cause such a fever and bandemia. That is most likely a staph aureus superficial abscess. Obtain echocardiogram and lumbar puncture for fever workup , rule out endocarditis. This will be ordered. Awaiting blood cultures. Further recommendation will depend on blood culture and lumbar puncture. MTDD
[2019-11-12 22:00] VITALS: BP 121/57
[2019-11-12 22:23] LABS: HEMATOCRIT 35.1 % (42.0-52.0); HEMOGLOBIN 11.6 g/dl (13.5-17.5); MEAN CORPUSCULAR HEMOGLOBIN 30.9 pg (27.0-33.0); MEAN CORPUSCULAR VOLUME 93.4 fl (80.0-96.0); RED BLOOD COUNT 3.76 10^6/uL (4.30-6.10); WHITE BLOOD COUNT 13.3 10^3/uL (4.0-10.0)
[2019-11-12 22:47] LABS: PLATELET COUNT, AUTOMATED 52 10^3/uL (150-450)
[2019-11-12 22:49] LABS: PLTBLUE- EDTA FREE CALC 48 K/mm3 (172-450); PLTBLUE- EDTA FREE MACHINE 44 10^3/uL (172-450)
[2019-11-13] MEDS: PIPERACILLIN/TAZOBACTAM SOD 2.25 GM in D5W MINI-BAG PLUS 50 ML IV SCH ×2 (04:27→11:23)
[2019-11-13 06:00] VITALS: BP 127/67
[2019-11-13] MEDS: HumaLOG INSULIN (NovoLOG) PER UNIT SC SCH (07:30)
[2019-11-13 08:24] LABS: HEMATOCRIT 33.7 % (42.0-52.0); HEMOGLOBIN 11.4 g/dl (13.5-17.5); MEAN CORPUSCULAR HEMOGLOBIN 31.2 pg (27.0-33.0); MEAN CORPUSCULAR HGB CONC 33.8 g/dl (32.0-36.5); MEAN CORPUSCULAR VOLUME 92.3 fl (80.0-96.0); RED BLOOD COUNT 3.65 10^6/uL (4.30-6.10); WHITE BLOOD COUNT 14.6 10^3/uL (4.0-10.0)
[2019-11-13 08:57] LABS: ALBUMIN 1.8 GM/DL (3.2-5.2); CALCIUM LEVEL 7.6 MG/DL (8.8-10.2); CREATININE FOR GFR 4.14 MG/DL (0.70-1.30); GLOMERULAR FILTRATION RATE 14.7 (>35); POTASSIUM SERUM 4.3 MEQ/L (3.5-5.1); TOTAL PROTEIN 5.8 GM/DL (6.4-8.2)
[2019-11-13] MEDS: DOCUSATE SODIUM 100 MG CAP PO SCH (09:00)
[2019-11-13] MEDS: METOPROLOL SUCC *XL* 25MG TAB (TopROL *XL*) PO SCH (09:00)
[2019-11-13 09:03] LABS: PLATELET COUNT, AUTOMATED 41 10^3/uL (150-450)
--- NOTE | 2019-11-13 09:05 | PHACANCOPD ---
PHARMACY VANCOMYCIN DOSING Pt Demographics Demographics Patient Age:84 , Weight:81.100 , Gender: male Adjusted Body Weight Date: 11/13/19, Adjusted Body Weight: Kg Events Past 24 Hours Events Past 24 Hours: YES: Change in CrCl; NO: Dialysis, Diuretic Therapy, Fever, Elevation in WBC, Pending Diagnostics, Pending Procedures, Other Vancomycin Vancomycin Target Ranges: 15-20 mcg/ml Vancomycin Load Y/N: Yes Load Dose Date Time Vancomycin Load Dose: 1.5G Date: 11/10 Time: Vancomycin Dose Date: 11/13/19. Current Vancomycin Dose: Intermittent Dosing?: Yes Labs Labs Item Value Date Time White Blood Count 13.3 10^3/uL H 11/12/19 2207 White Blood Count 16.9 10^3/uL H 11/12/19 0804 White Blood Count 11.5 10^3/uL H 11/11/19 0607 Vancomycin Level Trough 24.4 UG/ML H 11/13/19 0803 Methicillin-Resist S.aureus DNA PCR NOT DETECTED 11/12/19 1106 Creatinine 4.14 MG/DL H 11/13/19 0803 Creatinine 4.28 MG/DL H 11/12/19 0804 Creatinine 3.73 MG/DL H 11/11/19 0607 Creatinine 3.32 MG/DL H 11/10/19 0547 Creatinine 3.30 MG/DL H 11/09/19 0525 Micro Microbiology 11/12/19 Gram Stain - Final, Resulted 11/12/19 Wound Culture, Resulted Pending 11/12/19 Blood Culture - Preliminary, Resulted 11/12/19 Blood Culture, Received Pending 11/10/19 Respiratory Virus Panel (PCR) (JAY) - Final, Complete 11/04/19 Urine Culture - Final, Complete 11/04/19 Blood Culture - Final, Complete NO GROWTH AFTER 5 DAYS 11/04/19 Blood Culture - Final, Complete NO GROWTH AFTER 5 DAYS Creatinine Clearance Date:11/13/19. Creatinine Clearance: . Assessment and Plan Maintaining Current Dose?: No Reason for dose change: Trough too high Pharmacist Note Pharmacist Note Date: 11/13/19. Pharmacist note: Trough today resulted at 24.4mcg/ml. Based on the patients renal function I have changed him to intermittent Vanco. No plans to dialyze him yet. I have ordered a random for tomorrow AM and we will adjust dose from there. We will continue to monitor and adjust dose as needed. [facility] Nov 13, 2019 09:05
[2019-11-13 09:06] LABS: EOSINOPHILS 1 % (0-3); LYMPHOCYTES 2 % (16-44); MONOCYTES 1 % (0-5); NEUTROPHILS 95 % (28-66); PLATELET ESTIMATE MARKED DECREASE (NORMAL)
[2019-11-13] MEDS ORDERED: VANCOMYCIN INTERMITTENT/PULSE DOSING BY CLINICAL PHARMACIST PER DOSING PROTOCOL XX SCH (09:15)
[2019-11-13] MEDS: TAMSULOSIN 0.4 MG CAP PO SCH ×2 (10:35→21:01)
[2019-11-13] MEDS: VANICREAM MOISTURIZING SKIN CREAM 113GM TUBE TOP SCH ×2 (10:35→21:01)
[2019-11-13] MEDS: PANTOPRAZOLE 40MG TAB (PROTONIX) PO SCH (10:35)
[2019-11-13] MEDS: FINASTERIDE 5 MG TAB PO SCH (10:35)
[2019-11-13] MEDS: LEVEMIR (INSULIN DETEMIR) 1 UNITS/0.01ML SC SCH ×2 (10:36→21:01)
[2019-11-13] MEDS ORDERED: NS 1,000 ML IV SCH (11:00)
[2019-11-13] MEDS: ACETAMINOPHEN TAB 650MG DOSE (2X325MG) PO PRN (11:24)
--- NOTE | 2019-11-13 12:18 | IPNPDOC ---
Text Note Date of Service The patient was seen on 11/13/19. NOTE Subjective: Did not have any fever in the last 24 hours. Remains extremely so mnolent . Had a large bowel movement this am. could not get LP due to low platelets Physical Exam: Vitals: As below General Exam: somnolent, difficult to arouse. does not open eyes Eye Exam: Positive: PERRLA, Conjunctiva & lids normal, EOMI; Negative: Sclera icteric ENT Exam: Positive: Atraumatic, Mucous membr. moist/pink, Pharynx Normal Neck Exam: Positive: Supple; Negative: JVD, thyromegaly Chest Exam: Positive: Clear to auscultation, Normal air movement Heart Exam: Positive: Rate Normal, Regular Rhythm, Normal S1, Normal S2; Negative: Murmurs, Rubs Abdomen Exam: Positive: Hyperperistaltic bowel sounds, Soft, nontender Negative: Tenderness, Hepatospenomegaly Extremity Exam: Negative: Clubbing, Cyanosis, Edema Skin Exam: Positive: Nl turgor and temperature; Negative: Breakdown, Lesion Labs and Radiology: reviewed. 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 Patient has been shaking, weak, with frequent falls at home. He was found to have orthostatic hypertension in the ED. The last week he has been very weak and shakey. he had fallen 5 times mostly in the mornings soon after getting up from bed. Went to see PMD Dr Tan and was found o have hypotension on standing ans was sent to the ED. In the ED he was found to have supine hypertension with large drop on standing up when he would become symptomatic and weak and shakey. He was admitted for orthostatic hypotension with gait instability and falls. At present patient needs to to go to subacute rehab as per PT. He is now havaing generalized achiness, fever and poor appetite. His sugars have been running low for the past 2 days. Fever and body aches, lacticacidosis, rising WBC ?source of infection. ? meningitis could not get LP as very low platelets. Had superficial skin abscess on the chest wall drained culture staph blood culture1/2 prelim positive resp panel, Flu negative, CT chest , abdomen and pelvis negative for any pnaumonia or abscess. UA after st cath clean. tylenol prn echo done MRSA screen negative. ceftriaxone and vancomycin RICHY on CKD 4 with hyperkalemia renal function has worsened. No signs of uremia, no fluid retention, electrolytes ok. Chronic urinary retention with incomplete emptying has history of urethral stricture has surgical correction done with urethral opening now at the proximal penile shaft on inferior aspect Dr Pham helped to delineate the anatomy and he personally placed straight cath which passed easily without any obstruction 16 Fr Sargent was later inserted by the nurses with no problem poor output due to poor intake. will consider IVF. Gait instability and falls from orthostatic hypotension and diabetic neuropathy part of the weakness is due to progressing CKD. Sub acute rehab as per PT Supine hypertension with orthostatic hypotension possibly due to autonomic neuropathy now no hypertension. nefedipine with hold parameters. Chronic anemia due to CKD hh stable Hypertension continue home meds Diabetes sugars lower last 2 days, poor oral intake lispro and levemir as per sliding scale. dose lowered. However today i expect sugars to be high as he was started on bicarb gtt. CAD/CABG continue asa, statin, betablocker BPH continue flomax and finasteride. Cirrhosis of Liver as per CT abdomen Thrombocytopenia new hold heparin possibly due to infection. DVT prophylaxis in place. VS,Fishbone, I+O VS, Fishbone, I+O Laboratory Tests 11/12/19 22:07 11/13/19 08:03 Vital Signs Date Time Temp Pulse Resp B/P (MAP) Pulse Ox O2 Delivery O2 Flow Rate FiO2 11/13/19 09:00 88 102/51 11/13/19 06:00 98.3 18 94 Room Air I&O- Last 24 Hours up to 6 AM 11/13/19 06:00 Intake Total 3230 ml Output Total 700 ml Balance 2530 ml LIO NICOLE MD Nov 13, 2019 12:18
[2019-11-13] MEDS ORDERED: DOCUSATE SODIUM 100 MG CAP PO PRN (12:30)
[2019-11-13 14:00] VITALS: BP 101/47
[2019-11-13] MEDS: cefTRIAXone SOD 2 GM in D5W MINI-BAG PLUS 50 ML IV SCH (14:18)
--- NOTE | 2019-11-13 15:27 | REP ---
REASON FOR EXAM: Thrombocytopenia. DEEP VENOUS ULTRASONOGRAPHY BILATERAL THIGH, RULE OUT DVT: TECHNIQUE: Multiple ultrasonographic images of the deep venous structures of the thigh were obtained from the common femoral vein to the popliteal vein along with Doppler interrogation and color flow Doppler images. FINDINGS: There is no abnormal echogenic material seen within any of the visualized deep venous structures that would suggest acute thrombosis. Coaptation is unremarkable throughout. Doppler interrogation shows an expected response to respiratory variability and augmentation. The color flow images show what appears to be a normal vascular pattern throughout. IMPRESSION: There is no ultrasonographic evidence of deep venous thrombosis involving any of the visualized deep venous structures of the bilateral thigh, as described above. Electronically Signed by Luciano Serrato DO 11/13/2019 03:45 P
[2019-11-13] MEDS: ROSUVASTATIN 10 MG TAB (CRESTOR) PO SCH (17:39)
--- NOTE | 2019-11-13 18:28 | IPN ---
DATE: 11/13/2019 SUBJECTIVE: James continues to not do well. I attempted to call his , Shiela, multiple times yesterday and left a voice mail but was unable to reach her until this morning. Whereupon, we had a lengthy phone conversation regarding his current clinical condition, worsening renal failure, poor mentation, and underlying infection with etiology as of yet not fully known. I explained to his that he may require hemodialysis and she is going to discuss the same with their children. The patient was altered at the time of my visit today and only grunted and did not verbalize. He was seen by infectious diseases and recommended for lumbar puncture. However, he is significantly thrombocytopenic. I discontinued his aspirin. He continues on IV fluids and at least thus far remains nonoliguric. VITAL SIGNS: Temperature 98.3, pulse 81, respiratory rate 18, blood pressure 127/67, saturating 94% 97% on room air. REVIEW OF SYSTEMS: Unable to obtain secondary to clinical condition. GENERAL: The patient is seen lying in bed. Head of the bed elevated. He is not alert. He is lethargic. He grunts to verbal and tactile stimulus but does not answer yes or no to any simple questions and does not make eye contact. Tongue is dry. Neck is supple. Jugular veins are not elevated. Heart sounds are regular, S1, S2. There is a pacemaker in the left chest wall. Breath sounds appear fairly clear. No crackle or rales. The abdomen shows bowel sounds. He does not grimace to palpation. Genitourinary shows indwelling Sargent catheter draining urine. Extremities are negative for clubbing, cyanosis or edema. SKIN: Normal temperature and turgor. LABORATORY DATA: Sodium 132, potassium 4.3, bicarbonate 26, BUN 107, creatinine 4.1 lactic acid 3.4. Hemoglobin 11.4, white count 14.6. Blood cultures drawn yesterday, one out of two sets grew gram-positive cocci in clusters. INPATIENT MEDICATIONS: He received 2 liters of sodium bicarbonate-containing fluid. He is now on normal saline at 60 mL an hour. He was started on Rocephin 2 grams IV every 12 hours by the primary team. He continues on intermittent vancomycin. I stopped his aspirin. His insulin was reduced by the primary team. Remainder of medications are unchanged from prior. PROBLEMS: 1. Acute kidney injury superimposed on chronic kidney disease (CKD), stage IV, baseline creatinine 2.8. Renal function is worsening and the setting of underlying infection, the exact etiology of which is unknown. I had a lengthy discussion with his regarding his worsening renal failure and the very real possibility of hemodialysis needs. She will discuss with their children and then give me guidance on how to proceed in terms of renal replacement therapy. Today, there is no urgent indication for hemodialysis. His blood urea nitrogen (BUN), however, is now above 100 and I feel that he is likely to develop dialysis needs over the weekend. 2. Hyperkalemia with metabolic acidosis. It is due to worsening renal function. Both his serum bicarbonate and potassium have improved with the sodium bicarbonate-containing IV fluids and I have now switched him over to normal saline. 3. Leukocytosis, fevers, lactic acidosis. Source of infection is not yet clear. One out of two blood cultures sets from yesterday was positive. He has also been evaluated by infectious diseases. He is pending lumbar puncture. However, he is significantly thrombocytopenic. Additionally, his echocardiogram is also pending as he does have a pacemaker and transcatheter aortic valve replacement (TAVR). 4. Thrombocytopenia. His heparin subcutaneous has previously been stopped and I stopped his aspirin today as well. I doubt he has a deep vein thrombosis (DVT). He was receiving prophylactic heparin subcutaneous earlier on this admission. However, we will get Dopplers just out of precaution. 5. Hypertension. His metoprolol was appropriately held. Blood pressures are thus far acceptable. 6. Urinary retention. He continues with Sargent catheter. DISPOSITION: Worsening renal function. The possibility of hemodialysis needs has been discussed at length with his , Shiela, and I will keep the family updated and they are to discuss amongst themselves and give me guidance with whether they would want to proceed with hemodialysis or not should it become medically necessary.
[2019-11-13 22:00] VITALS: BP 108/56
--- NOTE | 2019-11-13 22:37 | IPN ---
DATE: 11/13/2019 James seems to be less responsive today, more somnolent. He did not have any meaningful conversation with me today. He did not complain of anything. Appeared comfortable. He had fever in the past four hours MEDICATIONS Ceftriaxone 2 gram every 12 hours and vancomycin. LABORATORY DATA White count 14.6, hemoglobin 11.4, hematocrit 33.7, platelet 41. Sodium 132, BUN 107, creatinine 4.14, glucose 267, AST 64, ALT 40, alk phos 232, albumin 1.8. Blood culture one out of two sets was positive for gram positive cocci in clusters. Chest abscess culture is positive for staph aureus from a small abscess that was drained yesterday at the bedside. MRSA screen negative. Influenza A, B and RSV negative. IMAGING STUDIES Vascular ultrasound done on 11/12 showed no ultrasound evidence of DVT involving any of the deep venous structures of both thighs. PHYSICAL EXAMINATION: Temperature is 98.3, pulse 88, respirations 18, blood pressure 127/67. Oxygen saturation 94% on room air. Heart: Normal S1, S2. No murmurs, rubs or gallops appreciated. Lungs: Clear anteriorly. No wheezes, rales or rhonchi. Abdomen is soft, nontender. Extremities: No edema. He has very dry skin with multiple skin lesions of actinic keratosis, a small chest wall abscess on the right side. Head and neck: Mild stiffness although it is hard to evaluate with the patient being very somnolent. IMPRESSION: 1. Sepsis with a negative chest CT, abdominal CT, evidence of lactic acidosis with leukocytosis, and fever with a small chest wall abscess. Positive blood culture could be a contaminant and is only one out of two. Will have to wait and see if this is a staph aureus or staph coag negative. 2. History of TAVR. The patient is at risk of endocarditis. Echocardiogram has been done and is pending. Mental status changes with fever. Lumbar puncture could not be obtained due to thrombocytopenia. PLAN Continue with IV Rocephin and vancomycin. Will review echocardiogram, blood cultures tomorrow and further decisions will be done based on clinical improvement. If the patient continues to worsen will need to reconsider giving a lumbar puncture and platelet transfusion. [facility]
[2019-11-14] MEDS: cefTRIAXone SOD 2 GM in D5W MINI-BAG PLUS 50 ML IV SCH ×2 (02:07→16:18)
[2019-11-14 06:00] VITALS: BP 111/57
[2019-11-14 06:08] LABS: CALCIUM LEVEL 7.3 MG/DL (8.8-10.2); CREATININE FOR GFR 4.15 MG/DL (0.70-1.30); GLOMERULAR FILTRATION RATE 14.7 (>35); POTASSIUM SERUM 4.5 MEQ/L (3.5-5.1); VANCOMYCIN RANDOM 16.9 UG/ML
--- NOTE | 2019-11-14 06:14 | PHACANCOPD ---
PHARMACY VANCOMYCIN DOSING Pt Demographics Demographics Patient Age:84 , Weight:81.100 , Gender: male Adjusted Body Weight Date: 11/13/19, Adjusted Body Weight: Kg Events Past 24 Hours Events Past 24 Hours: NO: Dialysis, Diuretic Therapy, Change in CrCl, Fever, Elevation in WBC, Pending Diagnostics, Pending Procedures, Other Vancomycin Vancomycin Target Ranges: 15-20 mcg/ml Vancomycin Load Y/N: Yes Load Dose Date Time Vancomycin Load Dose: 1.5G Date: 11/10 Time: Vancomycin Dose Date: 11/13/19. Current Vancomycin Dose: Intermittent Dosing?: Yes Labs Labs Item Value Date Time White Blood Count 14.6 10^3/uL H 11/13/19 0803 Glomerular Filtration Rate 14.7 L 11/14/19 0541 Creatinine 4.15 MG/DL H 11/14/19 0541 Blood Urea Nitrogen 122 MG/DL H 11/14/19 0541 Random Vancomycin Level 16.9 UG/ML 11/14/19 0541 Vital Signs Label Value Date Time Patient Temperature 97.8 degrees F 11/13/19 2200 Temperature Source Oral 11/13/192199 Micro Microbiology 11/12/19 Gram Stain - Final, Complete 11/12/19 Wound Culture - Final, Complete Staphylococcus Aureus 11/12/19 Blood Culture - Preliminary, Resulted 11/12/19 Blood Culture - Preliminary, Resulted No growth after 24 hours . All specim... 11/10/19 Respiratory Virus Panel (PCR) (JAY) - Final, Complete 11/04/19 Urine Culture - Final, Complete 11/04/19 Blood Culture - Final, Complete NO GROWTH AFTER 5 DAYS 11/04/19 Blood Culture - Final, Complete NO GROWTH AFTER 5 DAYS Creatinine Clearance Date:11/14/19. Creatinine Clearance: [~12]. Pending Labs Random 03-15 in am Assessment and Plan Maintaining Current Dose?: Yes Reason for dose change: No Dose Change Pharmacist Note Pharmacist Note Date: 11/14/19. Pharmacist note:Trough of 16.9 is within target range. Will dose today with 1000mg @0800. Will continue to monitor and dose as needed. [facility] Nov 14, 2019 06:14
[2019-11-14 06:49] LABS: HEMATOCRIT 33.5 % (42.0-52.0); HEMOGLOBIN 11.4 g/dl (13.5-17.5); MEAN CORPUSCULAR HEMOGLOBIN 31.3 pg (27.0-33.0); RED BLOOD COUNT 3.64 10^6/uL (4.30-6.10); WHITE BLOOD COUNT 14.5 10^3/uL (4.0-10.0)
[2019-11-14 06:50] LABS: PLATELET COUNT, AUTOMATED 36 10^3/uL (150-450)
[2019-11-14 06:54] LABS: EOSINOPHILS 1 % (0-3); LYMPHOCYTES 8 % (16-44); MONOCYTES 5 % (0-5); NEUTROPHILS 86 % (28-66); PLATELET ESTIMATE MARKED DECREASE (NORMAL)
[2019-11-14] MEDS: LEVEMIR (INSULIN DETEMIR) 1 UNITS/0.01ML SC SCH ×2 (07:46→20:35)
[2019-11-14] MEDS ORDERED: VANCOMYCIN HCL 1,000 MG, VIAL MATE ADAPTER 1 EACH in D5W 250 ML IV ONE (08:00)
[2019-11-14] MEDS: TAMSULOSIN 0.4 MG CAP PO SCH ×2 (08:45→20:35)
[2019-11-14] MEDS: PANTOPRAZOLE 40MG TAB (PROTONIX) PO SCH (08:45)
[2019-11-14] MEDS: FINASTERIDE 5 MG TAB PO SCH (08:45)
[2019-11-14] MEDS: CALCITRIOL 0.25 MCG CAP (S0169) PO SCH (08:45)
[2019-11-14] MEDS: VANICREAM MOISTURIZING SKIN CREAM 113GM TUBE TOP SCH ×2 (08:45→20:41)
[2019-11-14] MEDS: METOPROLOL SUCC *XL* 25MG TAB (TopROL *XL*) PO SCH (08:45)
[2019-11-14] MEDS: ACETAMINOPHEN TAB 650MG DOSE (2X325MG) PO PRN ×2 (08:48→16:21)
[2019-11-14 11:22] LABS: INR 1.15; PROTHROMBIN TIME 14.4 SECONDS (11.8-14.0)
[2019-11-14] MEDS ORDERED: HEPARIN 1,000 UNITS/ML 10ML VIAL (FOR RADIOLOGY& DIALYSIS ONLY)(J1644-10) XX ONE (12:00)
--- NOTE | 2019-11-14 12:44 | IPNPDOC ---
Date Seen The patient was seen on 11/14/19. Progress Note Temporary hemodialysis catheter placement INDICATION: Hemodialysis PROCEDURE WELLNESS ASSISTANT: Dr. See CONSENT: Consent was obtained from health care proxy prior to the procedure. Indications, risks, and benefits were explained at length. PROCEDURE SUMMARY: A time out was performed. My hands were washed immediately prior to the procedure. I wore a surgical cap, mask with protective eyewear, full gown and sterile gloves throughout the procedure. The patient was placed in Trendelenburg position. Right chest region was prepped using chlorhexidine scrub and draped in sterile fashion using a full drape and sterile probe cover employed. The medial and lateral heads of the sternocleidomastoid muscle were identified as was the carotid pulse. The Internal Jugular vein was identified using the ultrasound. Anesthesia was achieved over the vein using 1% lidocaine. Using real-time out of plane guidance, the introducer needle was inserted into the Internal Jugular vein under direct ultrasound visualization. Venous blood was withdrawn. The syringe was removed and a guidewire was advanced into the introducer needle. The guidewire was visualized in the Internal Jugular Vein by ultrasound. A small incision was made at the skin surface with a scalpel and the introducer needle was exchanged for a dilator over the guidewire. After appropriate dilation was obtained, the dilator was exchanged over the wire for a larger, second dilator. After appropriate dilation was obtained, the dilator was exchanged over the wire for a 15 cm Alfredo catheter. The wire was removed and the catheter was sutured in place at 15 cm. A sterile sorbaview shield was placed over the catheter at the insertion site. The patient tolerated the procedure without any hemodynamic compromise. At time of procedure completion, all ports aspirated and flushed properly; both ports were heparin locked using the appropriate amount of solution (1.0 ml & 1.2 ml). Post-procedure chest x-ray is pending at this time. Estimated blood loss is <15 ml. VS, I&O, 24H, Fishbone Vital Signs/I&O Vital Signs Date Time Temp Pulse Resp B/P (MAP) Pulse Ox O2 Delivery O2 Flow Rate FiO2 11/14/19 08:45 91 113/58 11/14/19 06:00 96.4 17 96 Room Air I&O- Last 24 Hours up to 6 AM 11/14/19 06:00 Intake Total 1390 ml Output Total 575 ml Balance 815 ml Laboratory Data 24H LABS Laboratory Tests 2 11/13/19 17:09: Bedside Glucose (Misc Panel) 219H 11/13/19 20:53: Bedside Glucose (Misc Panel) 243H 11/14/19 05:41: Anion Gap 12, Glomerular Filtration Rate 14.7L, Calcium Level 7.3L, Ammonia 10, Random Vancomycin Level 16.9 11/14/19 06:19: 11/14/19 06:31: Neutrophils (%) (Auto) , Nucleated Red Blood Cells % (auto) 0.0, Neutrophils 86H, Lymphocytes (Manual) 8L, Monocytes (Manual) 5, Eosinophils (Manual) 1, Red Blood Cell Morphology NORMAL, Platelet Estimate MARKED DECREASE, Immature Platelet Fraction 6.1 11/14/19 10:46: Prothrombin Time 14.4H, Prothromb Time International Ratio 1.15 11/14/19 10:51: Bedside Glucose (Misc Panel) 228H CBC/BMP Laboratory Tests 11/14/19 05:41 11/14/19 06:31 Microbiology Microbiology 11/14/19 Blood Culture, Received Pending 11/12/19 Gram Stain - Final, Complete 11/12/19 Wound Culture - Final, Complete Staphylococcus Aureus 11/12/19 Blood Culture - Preliminary, Resulted Staphylococcus Aureus 11/12/19 Blood Culture - Preliminary, Resulted No Growth after 48 hours. All Specime... 11/10/19 Respiratory Virus Panel (PCR) (JAY) - Final, Complete 11/04/19 Urine Culture - Final, Complete 11/04/19 Blood Culture - Final, Complete NO GROWTH AFTER 5 DAYS 11/04/19 Blood Culture - Final, Complete NO GROWTH AFTER 5 DAYS GILBERT SEE MD Nov 14, 2019 12:44
--- NOTE | 2019-11-14 12:57 | IPNPDOC ---
Text Note Date of Service The patient was seen on 11/14/19. NOTE Subjective: Did not have any fever in the last 36 hours. Remains extremely so mnolent moaning and groaning. decreasing urine output. Possibly initiation of HD today. Physical Exam: Vitals: As below General Exam: Lethargic Eye Exam: Positive: PERRLA, Conjunctiva & lids normal, EOMI; Negative: Sclera icteric ENT Exam: Positive: Atraumatic, Mucous membr. moist/pink, Pharynx Normal Neck Exam: Positive: Supple; Negative: JVD, thyromegaly Chest Exam: Positive: Clear to auscultation, Normal air movement Heart Exam: Positive: Rate Normal, Regular Rhythm, Normal S1, Normal S2; Negative: Murmurs, Rubs Abdomen Exam: Positive: Hyperperistaltic bowel sounds, Soft, nontender Negative: Tenderness, Hepatospenomegaly Extremity Exam: Negative: Clubbing, Cyanosis, Edema Skin Exam: Positive: Nl turgor and temperature; Negative: Breakdown, Lesion Labs and Radiology: reviewed. 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 Patient has been shaking, weak, with frequent falls at home. He was found to have orthostatic hypertension in the ED. The last week he has been very weak and shakey. he had fallen 5 times mostly in the mornings soon after getting up from bed. Went to see PMD Dr Tan and was found o have hypotension on standing ans was sent to the ED. In the ED he was found to have supine hypertension with large drop on standing up when he would become symptomatic and weak and shakey. He was admitted for orthostatic hypotension with gait instability and falls. At present patient needs to to go to subacute rehab as per PT. He is now havaing generalized achiness, fever and poor appetite. His sugars have been running low for the past 2 days. Fever and body aches, lacticacidosis, rising WBC ?source of infection. ? meningitis could not get LP as very low platelets. Had superficial skin abscess on the chest wall drained culture staph blood culture/ prelim positive resp panel, Flu negative, CT chest , abdomen and pelvis negative for any pnaumonia or abscess. UA after st cath clean. tylenol prn echo done MRSA screen negative. ceftriaxone and vancomycin RICHY on CKD 4 nows seems to be getting uremic. possible initiation of HD today. Chronic urinary retention with incomplete emptying has history of urethral stricture has surgical correction done with urethral opening now at the proximal penile shaft on inferior aspect Dr Pham helped to delineate the anatomy and he personally placed straight cath which passed easily without any obstruction 16 Fr Sargent was later inserted by the nurses with no problem Gait instability and falls from orthostatic hypotension and diabetic neuropathy Sub acute rehab as per PT Supine hypertension with orthostatic hypotension possibly due to autonomic neuropathy now no hypertension. nifedipine with hold parameters. Chronic anemia due to CKD hh stable Hypertension continue home meds Diabetes sugars lower last 2 days, poor oral intake lispro and levemir as per sliding scale. dose lowered. CAD/CABG continue asa, statin, betablocker BPH continue flomax and finasteride. Cirrhosis of Liver as per CT abdomen Thrombocytopenia new hold heparin possibly due to infection and uremia DVT prophylaxis in place. VS,Fishbone, I+O VS, Fishbone, I+O Laboratory Tests 11/14/19 05:41 11/14/19 06:31 Vital Signs Date Time Temp Pulse Resp B/P (MAP) Pulse Ox O2 Delivery O2 Flow Rate FiO2 11/14/19 08:45 91 113/58 11/14/19 06:00 96.4 17 96 Room Air I&O- Last 24 Hours up to 6 AM 11/14/19 06:00 Intake Total 1390 ml Output Total 575 ml Balance 815 ml LIO NICOLE MD Nov 14, 2019 12:57
--- NOTE | 2019-11-14 13:11 | ECHO ---
DATE OF STUDY: 11/13/2019 DATE OF : 1935 AGE: 84 REFERRING PHYSICIAN: Dr. Mary Farmer REASON FOR STUDY: Fever. PATIENT LOCATION: Room 4235 2-D MEASUREMENTS: IVS: 1.9 cm LV: 3.7 cm LVPW: 1.7 cm Aorta: 4.5 cm IVC: 1.34 cm DOPPLER MEASUREMENTS; Peak velocity across the aortic valve: 1.4 m/s Peak velocity across the LVOT: 0.54 m/s Mitral E: 1.6 Maximum tricuspid valve velocity: 2.7 m/s 2-D COMMENTS: 1. Normal left ventricular size with moderately increased left ventricular wall thickness and low normal global left ventricular systolic function. The estimated ventricular systolic ejection fraction is 50-55%. 2. The left atrium appeared to be mildly enlarged. Normal right atrium and right ventricle. 3. Dilated aortic root at 4.5 cm. 4. A small pericardial effusion was noted, no evidence of cardiac tamponade. 5. Probably bioprosthetic aortic valve with normal leaflet excursion. 6. Moderately calcified mitral annulus with normal anterior mitral valve leaflet motion. Normal tricuspid valve. The pulmonic valve and proximal pulmonary artery branches were not well visualized. 7. The inferior vena cava was normal in size, central venous pressure is most likely normal. DOPPLER: It detects trace mitral regurgitation and mild tricuspid regurgitation. The calculated pulmonary artery systolic pressure varies between 30-40 mmHg. Assessment of the ventricular diastolic function was limited. IMPRESSION: 1. Low normal global left ventricular systolic function with moderate concentric left ventricular hypertrophy. Assessment of the left ventricular diastolic function was limited. 2. Probably bioprosthetic aortic valve with normal function. 3. Mitral annulus calcification with trace mitral regurgitation. 4. Mild tricuspid regurgitation with mild pulmonary hypertension. 5. Trace to small pericardial effusion noted, no evidence of cardiac tamponade. 6. Not mentioned above, Pacemaker/AICD wire artifacts noted in the right heart chambers. MTDD
[2019-11-14] MEDS ORDERED: VANCOMYCIN HCL 750 MG, VIAL MATE ADAPTER 1 EACH in D5W 250 ML IV ONE (16:00)
[2019-11-14 16:23] VITALS: BP 108/59
--- NOTE | 2019-11-14 16:25 | REP ---
REASON: Central line placement. COMPARISON: 11/04/2019 A right-sided internal jugular central venous catheter has been placed since the last exam, the tip of which is in the superior vena cava. The technique utilized in obtaining the radiograph has magnified the cardiac silhouette and accentuated the interstitial markings. The cardiac silhouette is unchanged. It is magnified by technique. I cannot rule out mild cardiomegaly. The dual-chamber bipolar pacemaker device and intracardiac device are unchanged. Note is again made of previous median sternotomy. There is no change in the lung hurt[place]. There are no acute abnormal opacities. There is no change in the osseous structures. IMPRESSION: No acute cardiopulmonary disease. Findings as described above. Electronically Signed by Luciano Serrato DO 11/14/2019 04:42 P
[2019-11-14] MEDS: ROSUVASTATIN 10 MG TAB (CRESTOR) PO SCH (17:09)
[2019-11-14] MEDS: NS 1,000 ML IV SCH (20:35)
[2019-11-14 22:00] VITALS: BP 124/75
[2019-11-15] MEDS: cefTRIAXone SOD 2 GM in D5W MINI-BAG PLUS 50 ML IV SCH ×2 (02:01→13:09)
[2019-11-15 06:00] VITALS: BP 129/71
[2019-11-15 06:33] LABS: BASO % 0.1 % (0.0-1.0); EOS # 0.2 10^3/uL (0.0-0.5); EOS % 2.1 % (0.0-3.0); HEMATOCRIT 33.7 % (42.0-52.0); HEMOGLOBIN 11.4 g/dl (13.5-17.5); LYMPH # 0.9 10^3/uL (1.5-5.0); LYMPH % 8.2 % (24.0-44.0); MEAN CORPUSCULAR HEMOGLOBIN 30.9 pg (27.0-33.0); MEAN CORPUSCULAR HGB CONC 33.8 g/dl (32.0-36.5); MEAN CORPUSCULAR VOLUME 91.3 fl (80.0-96.0); MONO # 1.1 10^3/uL (0.0-0.8); MONO % 9.7 % (0.0-5.0); NEUTROPHILS % 78.8 % (36.0-66.0); RED BLOOD COUNT 3.69 10^6/uL (4.30-6.10); WHITE BLOOD COUNT 11.4 10^3/uL (4.0-10.0)
[2019-11-15 06:38] LABS: PLATELET COUNT, AUTOMATED 37 10^3/uL (150-450)
[2019-11-15 06:58] LABS: CALCIUM LEVEL 7.8 MG/DL (8.8-10.2); CREATININE FOR GFR 3.54 MG/DL (0.70-1.30); GLOMERULAR FILTRATION RATE 17.6 (>35); POTASSIUM SERUM 3.8 MEQ/L (3.5-5.1); VANCOMYCIN RANDOM 30.5 UG/ML
--- NOTE | 2019-11-15 07:29 | IPN ---
DATE OF SERVICE: 11/14/2019 SUBJECTIVE: I had a lengthy discussion with the patient's (Shiela) and daughter (Priya) regarding his worsening renal failure, oliguria and altered mental status. His family tells me that the patient understood at baseline that he had advanced chronic kidney failure and that dialysis was a possibility and that he had indicated to them that he was willing to proceed with dialysis and hence the family was agreeable for Perma-Cath placement and first hemodialysis treatment this afternoon. The patient offered minimal conversation during my bedside visit this morning. He was able to recognize his and daughter. He continues to have poor oral intake, but has remained afebrile for the past 48 hours. OBJECTIVE: Temperature 97.6, pulse 85, respiratory rate 20, blood pressure 108/59, saturating 95% on room air. Intake yesterday 1929, urine output yesterday was only 350. Weight in the bed scale today was not recorded. General: The patient was seen lying in bed, head of bed elevated. Elderly male, not awake, not alert. After vigorous verbal and tactile stimulus, opens eyes and makes fleeting eye contact. After some time was able to follow some simple commands to wiggle toes or squeeze with hand and able to tell me the names of his family. Tongue is dry. Neck is supple. Jugular veins are not elevated. There is a dressing on the right chest wall. There is a pacemaker in the left chest wall pocket. Heart sounds are regular, S1-S2. There is no edema, clubbing or cyanosis in the legs. The lungs are fairly symmetric and lungs have fairly symmetric air entry. No crackle or rales. Abdomen is soft. He does not grimace to palpation. There are bowel sounds. Genitourinary: Shows a Sargent catheter with minimal urine. Extremities are negative for clubbing, cyanosis or edema. Neurologic: The patient wiggles toes on command and squeezes with hand and is able to tell me his name and his family members names, but otherwise does not carry on a conversation. Skin: Normal temperature and turgor. LABORATORY DATA: White count 14.5, hemoglobin 11.4, platelets 36, sodium 137, potassium 4.5, bicarbonate 24, BUN 122, creatinine 4.1, ammonia 10. Post central line placement, chest x-ray shows no acute process. INPATIENT MEDICATIONS: Reviewed by myself. I reduced the rate of the patient's normal saline to 40 mL an hour. He continues on ceftriaxone and renally dosed vancomycin. The remainder of medications are unchanged from prior. PROBLEMS: 1. Oliguric acute renal failure superimposed on chronic kidney disease (CKD) stage IV. BUN has risen to 122. The patient is altered. I believe a component of it is likely due to an underlying infectious process/metabolic encephalopathy. However, there may also now be a component of uremia. Urine output in the past 24 hours was less than 500 mL. His family indicates that the patient was willing for hemodialysis based upon their previous discussions with him and they would like to proceed with renal replacement therapy. The patient was subsequently dialyzed for 2 hours this afternoon with minimal fluid removal and he tolerated his treatment well. We will continue to monitor for signs of renal recovery and if there are none we will proceed with getting a Perma-Cath placed. 2. Fever, leukocytosis, lactic acidosis. The etiology of his infection is as of yet unknown. He has been evaluated by infectious diseases. Unfortunately, he could not get a lumbar puncture because of severe thrombocytopenia. Blood culture, one out of four, grew Staph aureus similar to the superficial wound on his right chest wall. He is on broad-spectrum empiric antibiotics managed by the primary team and he has been afebrile the past 48 hours and his white count is slowly improving. 3. Metabolic encephalopathy. An ammonia level was drawn and negative. His altered mentation is most likely due to infection. However, there may also very well be a component of uremia, hence, we did initiate dialysis today. 4. Chronic urinary retention. He continues with Sargent catheter, but is oliguric. 5. Hypertension. Blood pressures have been acceptable. In view of renal failure and infection, his antihypertensives were scaled back and he has holding parameters written. At present, he is only receiving low dose beta sarah. 6. Thrombocytopenia. The patient received heparin free dialysis. We previously stopped his aspirin along with heparin subcutaneous.
[2019-11-15] MEDS: METOPROLOL SUCC *XL* 25MG TAB (TopROL *XL*) PO SCH (07:51)
[2019-11-15] MEDS: ACETAMINOPHEN TAB 650MG DOSE (2X325MG) PO PRN ×2 (07:53→18:10)
[2019-11-15] MEDS: VANICREAM MOISTURIZING SKIN CREAM 113GM TUBE TOP SCH ×2 (07:53→21:00)
[2019-11-15] MEDS: FINASTERIDE 5 MG TAB PO SCH (07:53)
[2019-11-15] MEDS: PANTOPRAZOLE 40MG TAB (PROTONIX) PO SCH (07:53)
[2019-11-15] MEDS: TAMSULOSIN 0.4 MG CAP PO SCH ×2 (07:53→22:28)
[2019-11-15] MEDS: LEVEMIR (INSULIN DETEMIR) 1 UNITS/0.01ML SC SCH ×2 (09:36→22:29)
--- NOTE | 2019-11-15 10:43 | IPNPDOC ---
Text Note Date of Service The patient was seen on 11/15/19. NOTE Subjective: No fever. Started on HD yesterday. Appears to be more awake today. Complaining of back pain. As per nurse having 2 to 4 soft mushy stools since yesterday. He also had some lower abdominal cramps and pain after he came back from HD. No abdominal pain today Physical Exam: Vitals: As below General Exam: more awake today. Eye Exam: Positive: PERRLA, Conjunctiva & lids normal, EOMI; Negative: Sclera icteric ENT Exam: Positive: Atraumatic, Mucous membr. moist/pink, Pharynx Normal Neck Exam: Positive: Supple; Negative: JVD, thyromegaly Chest Exam: Positive: Clear to auscultation, Normal air movement Heart Exam: Positive: Rate Normal, Regular Rhythm, Normal S1, Normal S2; Negative: Murmurs, Rubs Abdomen Exam: Positive: Hyperperistaltic bowel sounds, Soft, nontender Negative: Tenderness, Hepatospenomegaly Extremity Exam: Negative: Clubbing, Cyanosis, Edema Skin Exam: Positive: Nl turgor and temperature; Negative: Breakdown, Lesion Labs and Radiology: reviewed. 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 Patient has been shaking, weak, with frequent falls at home. He was found to have orthostatic hypertension in the ED. The last week he has been very weak and shakey. he had fallen 5 times mostly in the mornings soon after getting up from bed. Went to see PMD Dr Tan and was found o have hypotension on standing ans was sent to the ED. In the ED he was found to have supine hypertension with large drop on standing up when he would become symptomatic and weak and shakey. He was admitted for orthostatic hypotension with gait instability and falls. At present patient needs to to go to subacute rehab as per PT. He is now havaing generalized achiness, fever and poor appetite. His sugars have been running low for the past 2 days. Fever and body aches, lacticacidosis, rising WBC ?source of infection. ? meningitis could not get LP as very low platelets. Had superficial skin abscess on the chest wall drained culture staph, MSSA blood culture1/4 positive, MSSA resp panel, Flu negative, CT chest , abdomen and pelvis negative for any pnaum onia or abscess. UA after st cath clean. tylenol prn echo done MRSA screen negative. ceftriaxone and vancomycin Metabolic encephalopathy due to uremia most probably started on HD on 11/15/19 Mahsa on CKD 4 now initiated on HD will see if renal function recovers or not. Chronic urinary retention with incomplete emptying has history of urethral stricture has surgical correction done with urethral opening now at the proximal penile shaft on inferior aspect Dr Pham helped to delineate the anatomy and he personally placed straight cath which passed easily without any obstruction 16 Fr Sargent was later inserted by the nurses with no problem Gait instability and falls from orthostatic hypotension and diabetic neuropathy Sub acute rehab as per PT Supine hypertension with orthostatic hypotension possibly due to autonomic neuropathy now no hypertension. nifedipine with hold parameters. Chronic anemia due to CKD hh stable Hypertension continue home meds Diabetes sugars lower last 2 days, poor oral intake lispro and levemir as per sliding scale. dose lowered. CAD/CABG continue asa, statin, betablocker BPH continue flomax and finasteride. Cirrhosis of Liver as per CT abdomen Thrombocytopenia new hold heparin possibly due to infection and uremia with underlying cirrhosis of liver DVT prophylaxis in place. VS,Fishbone, I+O VS, Fishbone, I+O Laboratory Tests 11/15/19 06:12 Vital Signs Date Time Temp Pulse Resp B/P (MAP) Pulse Ox O2 Delivery O2 Flow Rate FiO2 11/15/19 07:51 95 131/72 11/15/19 06:00 97.5 18 96 Room Air I&O- Last 24 Hours up to 6 AM 11/15/19 06:00 Intake Total 1705 ml Output Total 900 ml Balance 805 ml LIO NICOLE MD Nov 15, 2019 10:43
[2019-11-15 14:00] VITALS: BP 112/51
[2019-11-15] MEDS: ceFAZolin SOD 2 GM in IV 1 EA IV SCH (18:08)
[2019-11-15] MEDS: ROSUVASTATIN 10 MG TAB (CRESTOR) PO SCH (18:09)
[2019-11-15 20:00] VITALS: BP 140/60
--- NOTE | 2019-11-15 22:11 | IPN ---
DATE: 11/15/2019 SUBJECTIVE: Patient is seen and examined this morning at the bedside. I found him to be a little bit more alert today and he was answering simple questions appropriately and was cooperative with the physical exam. The patient was dialyzed yesterday for 2 hours and he tolerated his hemodialysis treatment without any issues. He remains afebrile and hemodynamically stable. He denies shortness of breath, fevers or chills. Temperature 96.6, pulse 83, respiratory rate 18, blood pressure 112/51, saturating 96% on room air. Intake yesterday was 1825, urine output yesterday was 375, dialysis removed 500 mL, net positive 950, urine output today is already 775 mL, weight in the bed scale is not recorded. General: The patient is seen lying in bed, head of the bed elevated, awake and alert, makes good eye contact, in no apparent distress. Extraocular muscles are intact. Tongue is dry. Neck is supple. Jugular veins are mildly elevated. Heart sounds are regular, S1, S2, pacemaker left chest wall and a dressing on the right chest wall. Temporary hemodialysis catheter in the right IJ. Lungs are diminished at the bases, otherwise clear. No crackle or rhonchi. Abdomen is soft and nontender. There are bowel sounds. Genitourinary shows Sargent catheter draining urine. Extremities are negative for edema, clubbing or cyanosis. Neurologic today, he is awake, alert and oriented to person, place, situation, interactive and cooperative with physical exam, which is a marked improvement from prior days. LABORATORY DATA: White count 11.4, hemoglobin 11.4, platelet 37, sodium 133, potassium 3.8, bicarbonate 26, BUN 88, creatinine 3.5. INPATIENT MEDICATIONS: He is on cephazolin 2 grams IV daily, normal saline at 40 mL an hour. His ceftriaxone was stopped by the primary team. His insulin was adjusted by the primary team. Remainder of medications are unchanged from prior. PROBLEMS: 1. Nonoliguric acute kidney injury on CKD stage IV. The patient was dialyzed yesterday for 2 hours via a temporary hemodialysis catheter. He tolerated his treatment without any issues. Today he appears more awake and alert. He is also having increased urine output, as of this afternoon he has already made 775 mL. I am going to go ahead and leave him on gentle IV fluid. I am hopeful that he may have some renal recovery and possibly not require further dialysis. However, we will continue to watch him closely for ongoing dialysis needs. If renal failure is persistent, he will need a temporary dialysis catheter to be removed and Perma-Cath to be placed. 2. Fever and leukocytosis. Source of infection is not totally clear. White count has down trended and he has been afebrile at least the past 72 hours. Superficial skin abscess grew Staphylococcus aureus and one out of four sets blood culture grew the same. Staphylococcus aureus (MSSA). He is followed by infectious diseases and I will defer antibiotics to infectious diseases and primary team. 3. Thrombocytopenia. He is receiving heparin free dialysis in view of severely low platelets. His aspirin was also previously held along with heparin DVT prophylaxis. 4. Altered mental status. Mentation is improved today. His encephalopathy is likely metabolic and due to combination infection / renal failure. 5. Chronic urinary retention. He continues with Sargent catheter and urine output is improving. 6. Hypertension. Blood pressures have been acceptable and in view of his renal failure and infection, his antihypertensives were scaled back and he is only receiving low dose beta sarah.
[2019-11-15] MEDS: NS 1,000 ML IV SCH (22:28)
[2019-11-16 06:25] LABS: BASO % 0.2 % (0.0-1.0); EOS # 0.2 10^3/uL (0.0-0.5); EOS % 1.7 % (0.0-3.0); HEMATOCRIT 31.9 % (42.0-52.0); HEMOGLOBIN 10.9 g/dl (13.5-17.5); LYMPH % 8.8 % (24.0-44.0); MEAN CORPUSCULAR HEMOGLOBIN 31.3 pg (27.0-33.0); MEAN CORPUSCULAR HGB CONC 34.2 g/dl (32.0-36.5); MEAN CORPUSCULAR VOLUME 91.7 fl (80.0-96.0); MONO # 1.1 10^3/uL (0.0-0.8); MONO % 9.5 % (0.0-5.0); NEUTROPHILS # 8.9 10^3/uL (1.5-8.5); NEUTROPHILS % 78.4 % (36.0-66.0); RED BLOOD COUNT 3.48 10^6/uL (4.30-6.10); WHITE BLOOD COUNT 11.3 10^3/uL (4.0-10.0)
[2019-11-16 06:26] LABS: PLATELET COUNT, AUTOMATED 48 10^3/uL (150-450)
[2019-11-16 06:46] VITALS: BP 136/63
[2019-11-16 06:52] LABS: CALCIUM LEVEL 7.3 MG/DL (8.8-10.2); CREATININE FOR GFR 4.07 MG/DL (0.70-1.30)
[2019-11-16] MEDS: FINASTERIDE 5 MG TAB PO SCH (08:23)
[2019-11-16] MEDS: CALCITRIOL 0.25 MCG CAP (S0169) PO SCH (08:23)
[2019-11-16] MEDS: PANTOPRAZOLE 40MG TAB (PROTONIX) PO SCH (08:23)
[2019-11-16] MEDS: TAMSULOSIN 0.4 MG CAP PO SCH ×2 (08:23→22:15)
[2019-11-16] MEDS: METOPROLOL SUCC *XL* 25MG TAB (TopROL *XL*) PO SCH (08:25)
[2019-11-16] MEDS: VANICREAM MOISTURIZING SKIN CREAM 113GM TUBE TOP SCH ×2 (08:28→22:16)
--- NOTE | 2019-11-16 08:38 | IPNPDOC ---
Text Note Date of Service The patient was seen on 11/16/19. NOTE Subjective: Remains lethargic this am. On calling name just making some noises. He did complain of abdominal pain ysterday andhad 2 sof bowl movements. No Fever or chills, Cath in place making urine. planned for HD again today. Physical Exam: Vitals: As below General Exam: lethargic Eye Exam: Positive: PERRLA, Conjunctiva & lids normal, EOMI; Negative: Sclera icteric ENT Exam: Positive: Atraumatic, Mucous membr. moist/pink, Pharynx Normal Neck Exam: Positive: Supple; but has tenderness. Negative: JVD, thyromegaly Chest Exam: Positive: Clear to auscultation, Normal air movement Heart Exam: Positive: Rate Normal, Regular Rhythm, Normal S1, Normal S2; Negative: Murmurs, Rubs Abdomen Exam: Positive: Hyperperistaltic bowel sounds, Soft, nontender Negative: Tenderness, Hepatospenomegaly Extremity Exam: Negative: Clubbing, Cyanosis, Edema Skin Exam: Positive: Nl turgor and temperature; Negative: Breakdown, Lesion Labs and Radiology: reviewed. 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 Patient has been shaking, weak, with frequent falls at home. He was found to have orthostatic hypertension in the ED. The last week he has been very weak and shakey. he had fallen 5 times mostly in the mornings soon after getting up from bed. Went to see PMD Dr Tan and was found o have hypotension on standing ans was sent to the ED. In the ED he was found to have supine hypertension with large drop on standing up when he would become symptomatic and weak and shakey. He was admitted for orthostatic hypotension with gait instability and falls. At present patient needs to to go to subacute rehab as per PT. He is now havaing generalized achiness, fever and poor appetite. His sugars have been running low for the past 2 days. Fever and body aches, lacticacidosis, rising WBC ?source of infection. ? meningitis could not get LP as very low platelets. Had superficial skin abscess on the chest wall drained culture staph, MSSA blood culture1/4 positive, MSSA resp panel, Flu negative, CT chest , abdomen and pelvis negative for any pnaumonia or abscess. UA after st cath clean. tylenol prn echo done MRSA screen negative. on cefazolin Metabolic encephalopathy due to uremia most probably started on HD on 11/15/19 RICHY on CKD 4 now initiated on HD will see if renal function recovers or not. Chronic urinary retention with incomplete emptying has history of urethral stricture has surgical correction done with urethral opening now at the proximal penile shaft on inferior aspect Dr Pham helped to delineate the anatomy and he personally placed straight ca th which passed easily without any obstruction 16 Fr Sargent was later inserted by the nurses with no problem Gait instability and falls from orthostatic hypotension and diabetic neuropathy Sub acute rehab as per PT Supine hypertension with orthostatic hypotension possibly due to autonomic neuropathy now no hypertension. nifedipine with hold parameters. Chronic anemia due to CKD hh stable Hypertension continue home meds Diabetes sugars lower last 2 days, poor oral intake lispro and levemir as per sliding scale. dose lowered. CAD/CABG continue asa, statin, betablocker BPH continue flomax and finasteride. Cirrhosis of Liver as per CT abdomen Thrombocytopenia new hold heparin possibly due to infection and uremia with underlying cirrhosis of liver DVT prophylaxis in place. VS,Fishbone, I+O VS, Fishbone, I+O Laboratory Tests 11/16/19 05:25 Vital Signs Date Time Temp Pulse Resp B/P (MAP) Pulse Ox O2 Delivery O2 Flow Rate FiO2 11/16/19 08:25 90 120/52 11/16/19 06:46 96.9 18 96 Room Air I&O- Last 24 Hours up to 6 AM 11/16/19 06:00 Intake Total 2150 ml Output Total 575 ml Balance 1575 ml LIO NICOLE MD Nov 16, 2019 08:37
[2019-11-16] MEDS ORDERED: LEVEMIR (INSULIN DETEMIR) 1 UNITS/0.01ML SC SCH (09:00)
[2019-11-16 10:33] LABS: HEPATITIS B CORE ANTIBODY IGM NEGATIVE (NEGATIVE); HEPATITIS B SURFACE ANTIBODY NEGATIVE (POSITIVE); HEPATITIS B SURFACE ANTIGEN NEGATIVE (NEGATIVE); HEPATITIS C VIRUS ABY INDEX < 0.0 INDEX (<0.8)
[2019-11-16 14:00] VITALS: BP 151/64
[2019-11-16] MEDS ORDERED: ceFAZolin 2 GM/D5W 50 ML IV BAG (J0690 PER 500MG) As Ordered ONE (15:06)
[2019-11-16] MEDS ORDERED: HEPARIN 1,000 UNITS/ML 10ML VIAL (FOR RADIOLOGY& DIALYSIS ONLY)(J1644-10) As Ordered ONE (15:07)
[2019-11-16] MEDS ORDERED: diphenhydrAMINE INJ 50MG/ML VIAL (J1200) As Ordered ONE (15:08)
[2019-11-16] MEDS ORDERED: MIDAZOLAM INJ 2 MG/2 ML VIAL (J2250) As Ordered ONE (15:08)
[2019-11-16] MEDS ORDERED: fentaNYL 100 MCG/2 ML INJECTION (J3010) As Ordered ONE (15:08)
[2019-11-16] MEDS: ROSUVASTATIN 10 MG TAB (CRESTOR) PO SCH (17:07)
--- NOTE | 2019-11-16 17:25 | REP ---
CT brain without contrast: History: Altered mental status. Comparison head CT study February 10, 2019. CT findings: Preliminary digital straw hat brim raiser operator radiograph is unremarkable. Bony calvarium appears intact. There is fairly heavy vascular calcification in the distal internal carotid arteries. Visualized paranasal sinuses are clear. No intraorbital abnormality is seen. There is moderate generalized cerebral atrophy again noted. There is no evidence of intracranial hemorrhage. No infarct, mass, extra-axial fluid collection or midline shift is observed. Impression: Generalized atrophy and vascular calcification. No acute intracranial abnormality. Electronically Signed by David Thapa MD 11/17/2019 07:54 A
[2019-11-16] MEDS ORDERED: ONDANSETRON 4MG/2ML VIAL (J2405) IV PRN (18:00)
--- NOTE | 2019-11-16 18:02 | IPN ---
DATE: 11/16/2019 Mr. Reeves is seen this morning during hemodialysis. He is very sleepy and poorly responsive to verbal command. He did barely open his eyes but then closed them quickly. He is not communicative at present. PHYSICAL EXAMINATION: Temperature 96.9 degrees Fahrenheit, heart rate 90 per minute and respiratory rate 18 per minute. Blood pressure 120/52 mmHg and oxygen saturation 96% on room air. Head is atraumatic. Neck veins are moderately distended. His lips are dry. Right internal jugular vein temporary hemodialysis catheter is present. Heart sounds are irregular in rhythm and lungs with poor inspiratory effort and diminished breath sounds. Abdomen soft and bowel sounds are present. Extremities without any cyanosis or clubbing. He does have thigh edema. Neurologically he is poorly responsive at present. Today's labs show WBC count 11.3, hemoglobin 10.9 and hematocrit 31.9. Sodium 135, potassium 4.0, CO2 24, BUN 108 and creatinine 4.07. Glucose 277 and calcium 7.3. PROBLEMS 1. Acute renal failure superimposed on chronic kidney disease. The patient has advanced renal failure and is being dialyzed today. Even at baseline he has significant CKD and at present his chances of recovery of renal function are low. We will continue to monitor closely and dialyze him on as-needed basis. 2. Dialysis access. The patient currently has a temporary dialysis catheter in right internal jugular vein which is being removed today after dialysis. I am requesting interventional radiology for Perma-Cath placement in next 24-48 hours. 3. Altered mentation, most likely multifactorial. The patient is being dialyzed for 3 hours today in order to clear any risk for uremia. He is also receiving cephazolin for possible infection as he did have blood culture positive for Staphylococcus aureus. We will continue to monitor closely. He is currently afebrile. 4. Anemia. At present his anemia is stable and does not need any urgent intervention.
[2019-11-16 18:58] VITALS: BP 141/63
[2019-11-16 20:00] VITALS: BP 130/60
[2019-11-16] MEDS: LEVEMIR (INSULIN DETEMIR) 1 UNITS/0.01ML SC SCH (21:00)
[2019-11-16] MEDS: ceFAZolin SOD 2 GM in IV 1 EA IV SCH (21:06)
[2019-11-16] MEDS: NS 1,000 ML IV SCH (21:06)
[2019-11-16 23:59] VITALS: BP 166/71
[2019-11-17] VITALS (7 sets, daily range): BP systolic 108–144; BP diastolic 54–74
[2019-11-17 05:20] LABS: BASO % 0.1 % (0.0-1.0); EOS # 0.1 10^3/uL (0.0-0.5); EOS % 0.8 % (0.0-3.0); HEMATOCRIT 29.8 % (42.0-52.0); HEMOGLOBIN 9.9 g/dl (13.5-17.5); LYMPH % 6.5 % (24.0-44.0); MEAN CORPUSCULAR HEMOGLOBIN 30.9 pg (27.0-33.0); MEAN CORPUSCULAR HGB CONC 33.2 g/dl (32.0-36.5); MEAN CORPUSCULAR VOLUME 93.1 fl (80.0-96.0); MONO # 0.8 10^3/uL (0.0-0.8); MONO % 5.5 % (0.0-5.0); NEUTROPHILS # 13.1 10^3/uL (1.5-8.5); NEUTROPHILS % 85.9 % (36.0-66.0); WHITE BLOOD COUNT 15.3 10^3/uL (4.0-10.0)
[2019-11-17 05:30] LABS: PLATELET COUNT, AUTOMATED 68 10^3/uL (150-450)
[2019-11-17 05:38] LABS: C REACTIVE PROTEIN QUANTITATIV 9.75 MG/DL (0.00-0.30); CALCIUM LEVEL 7.6 MG/DL (8.8-10.2); CREATININE FOR GFR 3.56 MG/DL (0.70-1.30); GLOMERULAR FILTRATION RATE 17.5 (>35); POTASSIUM SERUM 4.1 MEQ/L (3.5-5.1)
[2019-11-17 05:56] LABS: ERYTHROCYTE SEDIMENTATION RATE 107 mm/hr (0-20)
[2019-11-17] MEDS: LEVEMIR (INSULIN DETEMIR) 1 UNITS/0.01ML SC SCH ×2 (09:00→20:43)
[2019-11-17] MEDS: FINASTERIDE 5 MG TAB PO SCH (09:38)
[2019-11-17] MEDS: TAMSULOSIN 0.4 MG CAP PO SCH ×2 (09:38→20:42)
[2019-11-17] MEDS: METOPROLOL SUCC *XL* 25MG TAB (TopROL *XL*) PO SCH (09:38)
[2019-11-17] MEDS: VANICREAM MOISTURIZING SKIN CREAM 113GM TUBE TOP SCH ×2 (09:39→20:43)
--- NOTE | 2019-11-17 10:38 | IPNPDOC ---
Text Note Date of Service The patient was seen on 11/17/19. NOTE Subjective: Patient had second session of HD yesterday. Post HD patient was u narousable even to sternal rub so a CT head was done which did not show any acute changes. Shiley was removed. However perm cath could not be placed as patient started vomiting during the procedure. He continued to vomit for about an hour afterwards. Later in the evening he was making some groaning noises when his name was called. Remains lethargic this am. will try for perm cath today. Only making groaning noises when called his name. Physical Exam: Vitals: As below General Exam: lethargic Eye Exam: Positive: PERRLA, Conjunctiva & lids normal, EOMI; Negative: Sclera icteric ENT Exam: Positive: Atraumatic, Mucous membr. moist/pink, Pharynx Normal Neck Exam: Positive: Supple; but has tenderness. Negative: JVD, thyromegaly Chest Exam: Positive: Clear to auscultation, Normal air movement Heart Exam: Positive: Rate Normal, Regular Rhythm, Normal S1, Normal S2; Negative: Murmurs, Rubs Abdomen Exam: Positive: Hyperperistaltic bowel sounds, Soft, nontender Negative: Tenderness, Hepatosplenomegaly Extremity Exam: Negative: Clubbing, Cyanosis, Edema Skin Exam: Positive: Nl turgor and temperature; Negative: Breakdown, Lesion Labs and Radiology: reviewed. 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 Patient has been shaking, weak, with frequent falls at home. He was found to have or thostatic hypertension in the ED. The last week he has been very weak and shakey. he had fallen 5 times mostly in the mornings soon after getting up from bed. Went to see PMD Dr Tan and was found o have hypotension on standing ans was sent to the ED. In the ED he was found to have supine hypertension with large drop on standing up when he would become symptomatic and weak and shakey. He was admitted for orthostatic hypotension with gait instability and falls. During the hospitalization had fever with rising WBC. Source of infection could not be determined treated empirically with antibiotics. ID felt may have meningitis however LP could not be done due to severe thrombocytopenia. He then became uremic with lethargy and was initiated on HD. Patient remains lethargic Metabolic encephalopathy due to uremia most probably started on HD on 11/15/19 RICHY on CKD 4 now initiated on HD will see if renal function recovers or not. Thrombocytopenia new hold heparin possibly due to infection and uremia with underlying cirrhosis of liver Fever and body aches, lactacidoses, rising WBC ?source of infection. ? meningitis could not get LP as very low platelets. Had superficial skin abscess on the chest wall drained culture staph, MSSA blood culture1/4 positive, MSSA resp panel, Flu negative, CT chest , abdomen and pelvis negative for any pneumonia or abscess. UA after st cath clean. tylenol prn echo noted. EF of 50 to 55%, some LVH MRSA screen negative. ceftriaxone and vancomycin Chronic urinary retention with incomplete emptying has history of urethral stricture has surgical correction done with urethral opening now at the proximal penile shaft on inferior aspect Dr Pham helped to delineate the anatomy and he personally placed straight cath which passed easily without any obstruction 16 Fr Sargent was later inserted by the nurses with no problem Gait instability and falls from orthostatic hypotension and diabetic neuropathy Sub acute rehab as per PT Supine hypertension with orthostatic hypotension possibly due to autonomic neuropathy now no hypertension. nifedipine with hold parameters. Chronic anemia due to CKD hh stable Hypertension continue home meds Diabetes sugars lower last 2 days, poor oral intake lispro and levemir as per sliding scale. dose lowered. CAD/CABG continue asa, statin, betablocker BPH continue flomax and finasteride. 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 h/o Complete heart block s/p pacemaker DVT prophylaxis in place. VS,Fishbone, I+O VS, Fishbone, I+O Laboratory Tests 11/17/19 05:03 Vital Signs Date Time Temp Pulse Resp B/P (MAP) Pulse Ox O2 Delivery O2 Flow Rate FiO2 11/17/19 04:00 2.0 11/17/19 04:00 97.5 74 18 135/60 (85) 100 Nasal Cannula I&O- Last 24 Hours up to 6 AM 11/17/19 06:00 Intake Total 870 ml Output Total 1450 ml Balance -580 ml LIO NICOLE MD Nov 17, 2019 07:43
--- NOTE | 2019-11-17 12:10 | REP ---
Evaluate for PermCath placement. Pedro-scale sonographic images obtained of the right neck demonstrate a patent and compressible right internal jugular vein. A training consultant radiograph of the chest demonstrates left-sided cardiac device leads. Median sternotomy wires. Unremarkable right lung. Review of recent blood cultures demonstrates positive blood cultures within the last 5 days. Repeat blood cultures negative for 48 hours so far. Recent fevers leukocytosis. Impression: The patient is suitable for PermCath placement but needs 5 days of negative blood cultures prior to placement. We will schedule the patient for PermCath placement anticipating negative cultures at day 5. Thank you for this referral Electronically Signed by Mercy Garcia MD 11/17/2019 12:09 P
[2019-11-17] MEDS ORDERED: LIDOCAINE 1% MDV 20ML VIAL As Ordered ONE (12:19)
[2019-11-17] MEDS ORDERED: SODIUM CHLORIDE 0.9% INJ 10 ML SYR IV PRN (13:15)
[2019-11-17] MEDS: SODIUM CHLORIDE 0.9% INJ 10 ML SYR IV SCH (18:04)
[2019-11-17] MEDS: ROSUVASTATIN 10 MG TAB (CRESTOR) PO SCH (18:04)
[2019-11-17] MEDS: ceFAZolin SOD 2 GM in IV 1 EA IV SCH (18:59)
--- NOTE | 2019-11-17 20:29 | IPN ---
DATE OF VISIT: 11/16/2019 HISTORY: Mr. Reeves came back from head CT due to his difficulty with arousal. He had dialysis today. Very sleepy and poorly responsive. He barely opened his eyes when talked to. He has not had any fever or chills. He still has a draining chest wall abscess. Vital signs: Temperature is 96.9, pulse 72, respirations 16, blood pressure 130/60, O2 sat 97% on 2 liters nasal cannula. Heart: Normal S1-S2. No murmurs appreciated. Lungs: Diminished bases with expiratory rhonchi bilaterally. He has 2 liters nasal cannula. Abdomen: Soft, nontender. No visceromegaly. Extremities: No clubbing or cyanosis. He has trace +1 edema. Neurologically: He moves all extremities but is very poorly responsive. Chest wall has a small abscess measuring about 2 cm which still had purulent discharge when squeezed. No significant redness. LABORATORY DATA: White count 11.3, hemoglobin 10.9, hematocrit 31.9, platelets 48, 78% neutrophils, 8% lymphocytes, 9% monocytes. Sodium 135, potassium 4, chloride 100, bicarb 24, BUN 108, creatinine 4.07, glucose 277, calcium 7.3, ammonia 10. Procalcitonin on 11/[address] done on 11/15, generalized atrophy and vascular calcification with no acute intracranial abnormalities. Chest x-ray 11/13 showed a dual chamber bipolar pacemaker and no acute findings. Micro blood cultures on 11/11 was positive for methicillin sensitive Staphylococcus aureus (MSSA) one out of two, and chest wall abscess was positive for MSSA 11/13, blood culture was negative. IMPRESSION: 1. Staph aureus sepsis with a chest wall abscess both positive for methicillin sensitive Staphylococcus aureus (MSSA). The patient is on IV cefazolin currently day number 2. 2. Acute on chronic kidney disease currently hemodialysis dependent. 3. History of pacemaker in the left upper chest that does not seem infected and a transcatheter aortic valve replacement (TAVR). The patient has complicated staph aureus bacteremia due to the presence of intracardiac devices and therefore will need six weeks of IV antibiotics with cefazolin in respect of a transesophageal echocardiogram ([place]) findings there is so I would recommend six weeks of IV antibiotics. PLAN: Continue IV cefazolin for six weeks. The patient, if improves and becomes stable could receive cefazolin after dialysis 2 grams, 2 grams and 3 grams on the weekends but for the time being until he improves he will remain on daily cefazolin to be given after hemodialysis. I also discussed with his son Gibson Reeves the DO NOT RESUSCITATE (DNR) status. The patient is not a DNR at this time but I did explain to them the complications of staph aureus sepsis, dialysis and the need for 6 weeks of IV antibiotics.
[2019-11-17] MEDS: NYSTATIN 100,000 UNITS/GM TOPICAL PWD 15 GM TOP SCH (20:43)
[2019-11-17] MEDS: NS 1,000 ML IV SCH (20:43)
--- NOTE | 2019-11-17 21:15 | IPN ---
DATE: 11/17/2019 Mr. Reeves is seen this morning on his bedside. He is feeling better and able to answer questions appropriately. Yesterday, he could not talk or even open his eyes. He was dialyzed yesterday, and his temporary hemodialysis catheter was removed after dialysis in anticipation for a Perm-A-Cath placement. Nursing staff reports that he is scheduled for Perm-A-Cath placement on November 17. PHYSICAL EXAMINATION: Temperature 97.8 degrees Fahrenheit, heart rate 72 per minute, respiratory rate 18 per minute, blood pressure 140/62 mm of mercury, and oxygen saturation 98%. Head is atraumatic. Neck supple, and jugular venous distention (JVD) is mildly elevated. Catheter removal site is clean and dry. Heart sounds are regular and without a pericardial friction rub. Lungs with diminished breath sounds and poor inspiratory effort. Abdomen soft and nontender, and bowel sounds are normal. Extremities without any cyanosis or clubbing. Neurologically, he is much more awake and able to answer questions today. Today's labs show WBC count 15.3, hemoglobin 9.9, and hematocrit 29.8. Sodium 137, potassium 4.1, CO2 of 25, BUN 71, and creatinine 3.56. Glucose 88 and calcium 7.6. A C-reactive protein is 9.75. PROBLEMS: 1. Altered mentation. Etiology is not very clear; however he did have advanced renal failure, and possibly uremia was contributing to it. I do not feel that symptoms were entirely related to uremia. He was dialyzed yesterday for 3 hours, which he tolerated well, and we will plan to dialyze him again once a Perm-A-Cath gets placed. 2. Staphylococcus aureus bacteremia. He did have positive blood cultures for November 11 and has been treated with antibiotics, including cephazolin. He is afebrile at present, and repeat blood cultures are pending. Central line has been removed, and a new catheter placement has been postponed to ensure negative blood cultures. 3. Acute on chronic renal failure. The patient has advanced chronic kidney disease at baseline and developed acute renal failure, most likely related to bacteremia, and has required dialysis. We will plan to dialyze him again tomorrow. 4. Anemia. At present anemia is stable and does not need any urgent intervention.
--- NOTE | 2019-11-17 21:26 | IPN ---
PLEASE DELETE THIS REPORT MTDD
[2019-11-18 04:00] VITALS: BP 122/56
[2019-11-18 05:35] LABS: BASO % 0.2 % (0.0-1.0); EOS # 0.2 10^3/uL (0.0-0.5); EOS % 1.3 % (0.0-3.0); HEMATOCRIT 28.6 % (42.0-52.0); HEMOGLOBIN 9.5 g/dl (13.5-17.5); LYMPH # 0.9 10^3/uL (1.5-5.0); MEAN CORPUSCULAR HEMOGLOBIN 30.7 pg (27.0-33.0); MEAN CORPUSCULAR HGB CONC 33.2 g/dl (32.0-36.5); MEAN CORPUSCULAR VOLUME 92.6 fl (80.0-96.0); MONO # 0.9 10^3/uL (0.0-0.8); MONO % 5.5 % (0.0-5.0); NEUTROPHILS # 14.8 10^3/uL (1.5-8.5); NEUTROPHILS % 86.8 % (36.0-66.0); RED BLOOD COUNT 3.09 10^6/uL (4.30-6.10); WHITE BLOOD COUNT 17.1 10^3/uL (4.0-10.0)
[2019-11-18 05:39] LABS: PLATELET COUNT, AUTOMATED 89 10^3/uL (150-450)
[2019-11-18] MEDS: SODIUM CHLORIDE 0.9% INJ 10 ML SYR IV SCH ×2 (05:55→18:00)
[2019-11-18 05:56] LABS: CALCIUM LEVEL 7.3 MG/DL (8.8-10.2); CREATININE FOR GFR 4.62 MG/DL (0.70-1.30); POTASSIUM SERUM 4.4 MEQ/L (3.5-5.1)
[2019-11-18 08:00] VITALS: BP 175/78
[2019-11-18] MEDS: CALCITRIOL 0.25 MCG CAP (S0169) PO SCH (09:00)
[2019-11-18] MEDS: FINASTERIDE 5 MG TAB PO SCH (09:00)
[2019-11-18] MEDS: METOPROLOL SUCC *XL* 25MG TAB (TopROL *XL*) PO SCH (09:00)
[2019-11-18] MEDS: TAMSULOSIN 0.4 MG CAP PO SCH ×2 (09:00→21:22)
[2019-11-18 09:20] VITALS: BP 130/60
[2019-11-18] MEDS: LEVEMIR (INSULIN DETEMIR) 1 UNITS/0.01ML SC SCH ×2 (09:23→21:22)
[2019-11-18] MEDS ORDERED: HEPARIN 1,000 UNITS/ML 10ML VIAL (FOR RADIOLOGY& DIALYSIS ONLY)(J1644-10) XX ONE (11:00)
[2019-11-18 12:00] VITALS: BP 131/60
[2019-11-18] MEDS: NYSTATIN 100,000 UNITS/GM TOPICAL PWD 15 GM TOP SCH ×2 (12:00→21:22)
[2019-11-18] MEDS: VANICREAM MOISTURIZING SKIN CREAM 113GM TUBE TOP SCH ×2 (12:00→21:22)
--- NOTE | 2019-11-18 12:02 | REP ---
CT THORACIC SPINE WITHOUT CONTRAST: HISTORY: Mid scapular pain. Comparison is made with images from chest CT study November 11, 2019. FINDINGS: Associate Spa Director views demonstrate intracardiac pacemaker leads and what appears to be aortic valve replacement. There are clips in right upper quadrant of the abdomen. Thoracic vertebral body heights are preserved. Alignment is normal. No fracture or collapse is seen. No bony destructive lesion is appreciated. There is mild diffuse degenerative disc disease. There is a small focal disc protrusion with spurring on the left at T5-T6. No other focal disc protrusion is seen in the thoracic spine. IMPRESSION: Degenerative disc disease. Small left posterior T5-6 disc protrusion. No acute abnormality. Electronically Signed by David Thapa MD 11/18/2019 12:16 P
[2019-11-18] MEDS ORDERED: HEPARIN 1,000 UNITS/ML 10ML VIAL (FOR RADIOLOGY& DIALYSIS ONLY)(J1644-10) As Ordered ONE (12:20)
[2019-11-18] MEDS ORDERED: LIDOCAINE 1% MDV 20ML VIAL As Ordered ONE (12:20)
[2019-11-18] MEDS ORDERED: ceFAZolin 1GM VIAL (J0690 PER 500MG) As Ordered ONE (12:31)
--- NOTE | 2019-11-18 13:01 | IPN ---
DATE OF VISIT: 11/18/2019 Mr. Reeves is seen this morning on his bedside. He is still quite lethargic but he is able to answer questions and open his eyes. He is complaining of back pain and points towards midthoracic area. Nursing staff reports that he could not take his pills this morning. Patient is scheduled for a PermaCath placement this morning and is on the scheduled for dialysis this afternoon. On physical exam, temperature 97.6 degrees Fahrenheit, heart rate 80 per minute and respiratory rate 16 per minute. Blood pressure 130/60 mmHg and oxygen saturation 94%. His head is atraumatic. Neck is supple and jugular venous distention (JVD) is slightly elevated. Heart sounds are regular and lungs with diminished breath sounds at bases. Abdomen soft and nontender and bowel sounds are normal. Extremities without any cyanosis or clubbing. Neurologically, he is arousable but lethargic. He did answer questions. He is unable to move his legs. Today's labs show WBC count 17.1, hemoglobin 9.5 and hematocrit 28.6. Platelets are 89,000. Sodium 138, potassium 4.4, BUN 102 and creatinine 4.62. Glucose 297 and calcium 7.3. PROBLEMS: 1. Acute renal failure superimposed on chronic kidney disease. Kidney function has not improved and patient remains dialysis dependent. He is scheduled for dialysis later today. 2. Leukocytosis. He did have blood cultures positive for Staphylococcus aureus and has been on antibiotic. At present, I am concerned about his back pain and I have discussed with Dr. Farmer and suggested to get a CT scan of his thoracic spine. 3. Altered mentation, probably multifactorial related to uremia and possible infections. He did have positive blood cultures and remains on antibiotics. Patient will be dialyzed later today once he gets his PermaCath placed. 4. Congestive heart failure. His volume status is reasonably well-compensated. Will continue to manage this with dialysis.
--- NOTE | 2019-11-18 15:33 | REP ---
MIDLINE CATHETER INSERTION WITH SITE RAINA The procedure was performed under the direct supervision of Dr. Pedro. The risks and benefits of the procedure were explained and informed consent was obtained by the health care Proxy. The right basilic vein was localized using ultrasound guidance. The skin was prepped and draped in a sterile fashion. 1% lidocaine was used as a local anesthetic. Using ultrasound guidance the basilic vein was cannulated and a 0.018 guide wire was inserted. The needle was removed and a 4.5 [place] dilator and peel-away sheath was inserted over the guide wire. A 4.5 [place] single-lumen catheter was left at a length of 16.5 cm. The dilator was removed and the catheter was inserted over the guide wire. The peel-away sheath was removed and the catheter was flushed with heparinized saline as per Hospital protocol. The catheter was affixed to the skin and a sterile dressing was applied. The patient tolerated the procedure well and there were no immediate complications. After the appropriate amount of monitored convalescence the patient was discharged from the department. Electronically Signed by LORNA Wells 11/17/2019 05:15 P Electronically Signed by Santiago Pedro MD 11/18/2019 09:06 A
--- NOTE | 2019-11-18 18:16 | POST-OPPD ---
Postoperative Procedure Note Date Of Procedure: Nov 18, 2019 Time Of Procedure: 18:15 PREOPERATIVE DIAGNOSIS: Rf POSTOPERATIVE DIAGNOSIS: same FINDINGS: patent right IJ PROCEDURE: right side PermCath placed. ready to use SURGEON: monique ANESTHESIA: local ESTIMATED BLOOD LOSS: < 5 ml COMPLICATIONS: none POSTOPERATIVE CONDITION: stable GONZALES ZULETA MD Nov 18, 2019 18:16
[2019-11-18] MEDS: ROSUVASTATIN 10 MG TAB (CRESTOR) PO SCH (19:02)
[2019-11-18] MEDS: ceFAZolin SOD 2 GM in IV 1 EA IV SCH (19:32)
[2019-11-18 20:00] VITALS: BP 122/58
[2019-11-18] MEDS: NS 1,000 ML IV SCH (21:21)
[2019-11-19] VITALS: BP 120/58
[2019-11-19 04:00] VITALS: BP 132/58
[2019-11-19] MEDS: SODIUM CHLORIDE 0.9% INJ 10 ML SYR IV SCH ×2 (04:51→18:00)
[2019-11-19 06:07] LABS: BASO % 0.2 % (0.0-1.0); EOS # 0.2 10^3/uL (0.0-0.5); EOS % 1.1 % (0.0-3.0); HEMATOCRIT 28.1 % (42.0-52.0); HEMOGLOBIN 9.4 g/dl (13.5-17.5); LYMPH # 1.1 10^3/uL (1.5-5.0); LYMPH % 6.4 % (24.0-44.0); MEAN CORPUSCULAR HGB CONC 33.5 g/dl (32.0-36.5); MEAN CORPUSCULAR VOLUME 92.7 fl (80.0-96.0); MONO % 5.7 % (0.0-5.0); NEUTROPHILS % 85.6 % (36.0-66.0); RED BLOOD COUNT 3.03 10^6/uL (4.30-6.10); WHITE BLOOD COUNT 17.5 10^3/uL (4.0-10.0)
[2019-11-19 06:11] LABS: PLATELET COUNT, AUTOMATED 94 10^3/uL (150-450)
[2019-11-19 06:32] LABS: CALCIUM LEVEL 8.3 MG/DL (8.8-10.2); CREATININE FOR GFR 3.42 MG/DL (0.70-1.30); GLOMERULAR FILTRATION RATE 18.3 (>35); POTASSIUM SERUM 4.4 MEQ/L (3.5-5.1)
[2019-11-19 08:00] VITALS: BP 137/62
[2019-11-19] MEDS: FINASTERIDE 5 MG TAB PO SCH ×2 (08:42→09:00)
[2019-11-19] MEDS: TAMSULOSIN 0.4 MG CAP PO SCH ×3 (08:42→19:49)
[2019-11-19] MEDS: LEVEMIR (INSULIN DETEMIR) 1 UNITS/0.01ML SC SCH ×2 (08:43→19:49)
[2019-11-19] MEDS: NYSTATIN 100,000 UNITS/GM TOPICAL PWD 15 GM TOP SCH ×2 (08:44→19:49)
[2019-11-19] MEDS: VANICREAM MOISTURIZING SKIN CREAM 113GM TUBE TOP SCH ×2 (08:44→19:49)
[2019-11-19] MEDS: METOPROLOL SUCC *XL* 25MG TAB (TopROL *XL*) PO SCH ×2 (08:48→09:00)
--- NOTE | 2019-11-19 09:43 | IPNPDOC ---
Text Note Date of Service The patient was seen on 11/18/19. NOTE Subjective: Patient more awake today . Complains of severe back pain in the i nterscapular area. No fever ro chills, still has some drainage from the chest wall abscess. Will get a CT thoracic spine. Physical Exam: Vitals: As below General Exam: somnolent but easily arousable. Eye Exam: Positive: PERRLA, Conjunctiva & lids normal, EOMI; Negative: Sclera icteric ENT Exam: Positive: Atraumatic, Mucous membr. moist/pink, Pharynx Normal Neck Exam: Positive: Supple; but has tenderness. Negative: JVD, thyromegaly Chest Exam: Positive: Clear to auscultation, Normal air movement, tenderness in the mid back Heart Exam: Positive: Rate Normal, Regular Rhythm, Normal S1, Normal S2; Negative: Murmurs, Rubs Abdomen Exam: Positive: Hyperperistaltic bowel sounds, Soft, nontender Negative: Tenderness, Hepatosplenomegaly Extremity Exam: Negative: Clubbing, Cyanosis, Edema Skin Exam: Positive: Nl turgor and temperature; Negative: Breakdown, Lesion Labs and Radiology: reviewed. 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 Patient has been shaking, weak, with frequent falls at home. He was found to have orthostatic hypertension in the ED. The last week he has been very weak and shakey. he had fallen 5 times mostly in the mornings soon after getting up from bed. Went to see PMD Dr Tan and was found o have hypotension on standing ans was sent to the ED. In the ED he was found to have supine hypertension with large drop on standing up when he would become symptomatic and weak and shakey. He was admitted for orthostatic hypotension with gait instability and falls. During the hospitalization had fever with rising WBC. Source of infection could not be determined treated empirically with antibiotics. ID felt may have meningitis however LP could not be done due to severe thrombocytopenia. He then became uremic with lethargy and was initiated on HD. Patient remains lethargic Metabolic encephalopathy due to uremia most probably started on HD on 11/15/19 New ESRD initiated on HD thsi admission will see if renal function recovers or not. Thrombocytopenia new hold heparin possibly due to infection and uremia with underlying cirrhosis of liver MSSA bacterimia with chest wall abscess growing MSSA definite other source not determined. There was concern for meningitis however LP could not be done due to thrombocytopenia, empirically treated. on Cefazolin Back pain will get CT thoracic spine. Chronic urinary retention with incomplete emptying has history of urethral stricture has surgical correction done with urethral opening now at the proximal penile shaft on inferior aspect Dr Pham helped to delineate the anatomy and he personally placed straight cath which passed easily without any obstruction 16 Fr Sargent was later inserted by the nurses with no problem Gait instability and falls from orthostatic hypotension and diabetic neuropathy Sub acute rehab as per PT Supine hypertension with orthostatic hypotension possibly due to autonomic neuropathy now no hypertension. nifedipine with hold parameters. Chronic anemia due to CKD hh stable Hypertension continue home meds Diabetes sugars lower last 2 days, poor oral intake lispro and levemir as per sliding scale. dose lowered. CAD/CABG continue asa, statin, betablocker BPH continue flomax and finasteride. 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 h/o Complete heart block s/p pacemaker DVT prophylaxis in place. VS,Fishbone, I+O VS, Fishbone, I+O Laboratory Tests 11/18/19 05:00 Vital Signs Date Time Temp Pulse Resp B/P (MAP) Pulse Ox O2 Delivery O2 Flow Rate FiO2 11/18/19 09:20 80 130/60 (83) 11/18/19 08:00 97.6 16 94 Nasal Cannula 1.0 I&O- Last 24 Hours up to 6 AM 11/18/19 06:00 Intake Total 1410 ml Output Total 250 ml Balance 1160 ml LIO NICOLE MD Nov 18, 2019 11:09
--- NOTE | 2019-11-19 09:52 | IPNPDOC ---
Text Note Date of Service The patient was seen on 11/19/19. NOTE Subjective: Patient again lethargic today. Only groans a little. No fever, No neck stiffness, CT thoracic spine no acute findings. Going for HD again today. Physical Exam: Vitals: As below General Exam: Lethargic again. Only groaning when called or moved around. Eye Exam: Positive: PERRLA, Conjunctiva & lids normal, EOMI; Negative: Sclera icteric ENT Exam: Positive: Atraumatic, Mucous membr. moist/pink, Pharynx Normal Neck Exam: Positive: Supple; but has tenderness. Negative: JVD, thyromegaly Chest Exam: Positive: Clear to auscultation, Normal air movement, tenderness in the mid back, bibasal crackles. Heart Exam: Positive: Rate Normal, Regular Rhythm, Normal S1, Normal S2; Negative: Murmurs, Rubs Abdomen Exam: Positive: Hyperperistaltic bowel sounds, Soft Negative: Hepatosplenomegaly Extremity Exam: Negative: Clubbing, Cyanosis, Edema Skin Exam: Positive: Nl turgor and temperature; Labs and Radiology: reviewed. 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 Patient has been shaking, weak, with frequent falls at home. He was found to have orthostatic hypertension in the ED. The last week he has been very weak and shakey. he had fallen 5 times mostly in the mornings soon after getting up from bed. Went to see PMD Dr Tan and was found o have hypotension on standing ans was sent to the ED. In the ED he was found to have supine hypertension with lar ge drop on standing up when he would become symptomatic and weak and shakey. He was admitted for orthostatic hypotension with gait instability and falls. During the hospitalization had fever with rising WBC. Source of infection could not be determined treated empirically with antibiotics. ID felt may have meningitis however LP could not be done due to severe thrombocytopenia. He then became uremic with lethargy and was initiated on HD. Patient remains lethargic Metabolic encephalopathy ? cause due to uremia most probably however even after 3 HD sessions remains lethargic. New CT head negative for acute events. Treated empirically for meningitis. Platelet count is improving. Once above 100K will reconsider LP. 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 Thrombocytopenia new hold heparin possibly due to infection and uremia with underlying cirrhosis of liver MSSA bacterimia with chest wall abscess growing MSSA NO other source of infection has been determined There was concern for meningitis however LP could not be done due to thrombocytopenia, empirically treated with ceftriaxone and vancomycin. on Cefazolin for MSSA bacterimia now. CT thoracic spine negative. Chronic urinary retention with incomplete emptying has history of urethral stricture has surgical correction done with urethral opening now at the proximal penile shaft on inferior aspect Dr Pham helped to delineate the anatomy and he personally placed straight cath which passed easily without any obstruction 16 Fr Sargent was later inserted by the nurses with no problem Gait instability and falls from orthostatic hypotension and diabetic neuropathy Sub acute rehab as per PT when pt ready Supine hypertension with orthostatic hypotension possibly due to autonomic neuropathy now no hypertension. nifedipine with hold parameters. Chronic anemia due to CKD hh stable Hypertension continue home meds Diabetes sugars lower last 2 days, poor oral intake lispro and levemir as per sliding scale. dose lowered. CAD/CABG continue asa, statin, betablocker BPH continue flomax and finasteride. 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 h/o Complete heart block s/p pacemaker DVT prophylaxis in place. VS,Fishbone, I+O VS, Fishbone, I+O Laboratory Tests 11/19/19 05:44 11/19/19 05:45 Vital Signs Date Time Temp Pulse Resp B/P (MAP) Pulse Ox O2 Delivery O2 Flow Rate FiO2 11/19/19 08:00 98.5 101 17 137/62 (87) 93 Room Air 11/18/19 20:00 I&O- Last 24 Hours up to 6 AM 11/19/19 06:00 Intake Total 1850 ml Output Total 1130 ml Balance 720 ml LIO NICOLE MD Nov 19, 2019 09:52
--- NOTE | 2019-11-19 10:46 | IPN ---
DATE: 11/19/2019 Mr. Reeves is seen this morning on his bedside. He was dialyzed yesterday afternoon after he got a new Perma-Cath placed and tolerated dialysis treatment very well. He is still very poorly responsive and barely opens his eyes on verbal command. He is not able to talk today. Yesterday he was complaining of back pain and CT scan of thoracic spine was done which did not show any evidence for infection. The patient has not been able to eat and did not take his morning meds today. PHYSICAL EXAMINATION: Temperature 98.5 degrees Fahrenheit, heart rate 100 per minute and respiratory rate 18 per minute. Blood pressure 137/62 mmHg and oxygen saturation 93% on room air. Head is atraumatic. Neck: Supple and jugular venous distention (JVD) not abnormally elevated. New hemodialysis Perma-Cath in right internal jugular vein without any signs of a bleeding or infection. Heart: Sounds tachycardiac and without a pericardial friction rub. Lungs: Have diminished breath sounds with poor inspiratory effort. Abdomen: Soft and nontender and bowel sounds are present. Extremities: Without any cyanosis or clubbing. Neurologically: He is quite lethargic and barely opens his eyes. Review of labs today show WBC count 17.5, hemoglobin 9.4 and hematocrit 28.1. Sodium 134, potassium 4.4, CO2 25, BUN 53 and creatinine 3.42. Glucose 165 and calcium 8.3. PROBLEMS: 1. Acute on chronic renal failure: The patient has been dialysis dependent and was dialyzed yesterday. We will plan to dialyze him again this afternoon for about 3 hours. I do not feel that he is uremic at this point and we need to look for other causes of his altered mentation. 2. Altered mentation: Etiology remains uncertain. I do not feel that this is uremia and CT scan of head was negative for any bleed or acute infarct just on 11/16/2019. 3. Anemia: At present his anemia is stable and does not need urgent intervention. All other issues are being addressed by the hospitalist service.
--- NOTE | 2019-11-19 10:58 | REP ---
IR Permcath placement. IR ultrasound of the right neck. IR Permcath insertion under fluoroscopy and ultrasound guidance. Clinical information: Renal failure. Needs dialysis. Physician: Dr. Garcia. Procedure: The patient was advised of the benefits, risks and alternatives of the procedure and informed consent was obtained. The time-out was performed with verification of the patient's name, MRN, site of procedure and type of procedure to be performed. The patient was positioned in the supine position on the angiographic table. The site was prepped and draped in the usual sterile fashion. Moderate sedation was not required. The physician spent 45 minutes of continuous face to face time with the patient. Ultrasound of the right neck reveals a patent and compressible right internal jugular vein. A customer facilities supervisor radiograph reveals cardiac pacer leads. The neck and anterior chest wall were anesthetized with lidocaine. The right internal jugular vein was accessed under ultrasound guidance, using a micro introducer needle, via a lateral approach. An 018 cope wire was advanced into the inferior vena cava. Incision at the internal jugular access site and anterior chest wall were made using a scalpel. The needle was removed and the tract was serially dilated under fluoroscopy guidance. A peel away sheath was advanced over the wire under fluoroscopy guidance into the [place] vena cava. The catheter was inserted through the subcutaneous tissues of the chest wall with a tunneling device. The catheter was then advanced through the peel-away sheath under fluoroscopy guidance to the right atrium. The peel-away sheath was removed. The catheter was positioned with the tip in the right atrium. The puncture site was closed. The catheter was secured in place using 2-0 Prolene. Both sites were cleansed and sterile dressings applied. At the conclusion of the procedure, the ports of the catheter aspirate and flush freely. The catheter was locked with high-dose heparin. The patient tolerated the procedure well and was returned to the PRU in stable condition. EBL: < 5 ml. Complications: None. Conclusion: Successful placement of right sided Palindrome Permcath for dialysis. The catheter is ready for immediate use. Thank you this referral. Electronically Signed by Mercy Garcia MD 11/19/2019 10:56 A
[2019-11-19 12:00] VITALS: BP 137/62
[2019-11-19] MEDS ORDERED: HEPARIN 1,000 UNITS/ML 10ML VIAL (FOR RADIOLOGY& DIALYSIS ONLY)(J1644-10) XX ONE (14:00)
[2019-11-19] MEDS: ROSUVASTATIN 10 MG TAB (CRESTOR) PO SCH (18:00)
[2019-11-19 18:53] VITALS: BP 128/58
[2019-11-19] MEDS: ceFAZolin SOD 2 GM in IV 1 EA IV SCH (18:58)
[2019-11-19] MEDS: NS 1,000 ML IV SCH (19:48)
[2019-11-20] VITALS (7 sets, daily range): BP systolic 104–148; BP diastolic 57–76
[2019-11-20] MEDS: SODIUM CHLORIDE 0.9% INJ 10 ML SYR IV SCH ×2 (04:16→17:27)
[2019-11-20 08:14] LABS: BASO % 0.2 % (0.0-1.0); EOS # 0.2 10^3/uL (0.0-0.5); EOS % 1.3 % (0.0-3.0); HEMATOCRIT 26.7 % (42.0-52.0); HEMOGLOBIN 8.9 g/dl (13.5-17.5); LYMPH # 1.3 10^3/uL (1.5-5.0); LYMPH % 7.9 % (24.0-44.0); MEAN CORPUSCULAR HEMOGLOBIN 31.9 pg (27.0-33.0); MEAN CORPUSCULAR HGB CONC 33.3 g/dl (32.0-36.5); MEAN CORPUSCULAR VOLUME 95.7 fl (80.0-96.0); MONO # 0.9 10^3/uL (0.0-0.8); MONO % 5.6 % (0.0-5.0); NEUTROPHILS # 13.7 10^3/uL (1.5-8.5); PLATELET COUNT, AUTOMATED 110 10^3/uL (150-450); RED BLOOD COUNT 2.79 10^6/uL (4.30-6.10); WHITE BLOOD COUNT 16.3 10^3/uL (4.0-10.0)
[2019-11-20 08:44] LABS: CALCIUM LEVEL 7.6 MG/DL (8.8-10.2); CREATININE FOR GFR 3.32 MG/DL (0.70-1.30); POTASSIUM SERUM 4.5 MEQ/L (3.5-5.1)
[2019-11-20] MEDS: CALCITRIOL 0.25 MCG CAP (S0169) PO SCH ×2 (09:00→09:17)
[2019-11-20] MEDS: METOPROLOL SUCC *XL* 25MG TAB (TopROL *XL*) PO SCH ×2 (09:00→09:17)
[2019-11-20] MEDS: TAMSULOSIN 0.4 MG CAP PO SCH ×3 (09:00→20:36)
[2019-11-20] MEDS: LEVEMIR (INSULIN DETEMIR) 1 UNITS/0.01ML SC SCH ×2 (09:00→20:39)
[2019-11-20] MEDS: FINASTERIDE 5 MG TAB PO SCH ×2 (09:00→09:17)
[2019-11-20] MEDS: NYSTATIN 100,000 UNITS/GM TOPICAL PWD 15 GM TOP SCH ×2 (09:18→20:40)
[2019-11-20] MEDS: VANICREAM MOISTURIZING SKIN CREAM 113GM TUBE TOP SCH ×2 (09:18→20:40)
--- NOTE | 2019-11-20 09:31 | IPNPDOC ---
Text Note Date of Service The patient was seen on 11/20/19. NOTE Subjective: No change in mental status, does say has back pain, tried to open eyes and show tongue on command. New fever from last night T max of 101.4. Physical Exam: Vitals: As below General Exam: Lethargic. Only groaning when called or moved around. does try to follow commands a little. Eye Exam: Positive: PERRLA, Conjunctiva & lids normal, EOMI; Negative: Sclera icteric ENT Exam: Positive: Atraumatic, Mucous membr. moist/pink, Pharynx Normal Neck Exam: Positive: Supple; but has tenderness. Negative: JVD, thyromegaly Chest Exam: Positive: Clear to auscultation anteriorly, Normal air movement, tenderness in the mid back, bibasal crackles. Heart Exam: Positive: Rate Normal, Regular Rhythm, Normal S1, Normal S2; Negative: Murmurs, Rubs Abdomen Exam: Positive: Hyperperistaltic bowel sounds, Soft Negative: Hepatosplenomegaly Extremity Exam: Negative: Clubbing, Cyanosis, Edema Skin Exam: Positive: Nl turgor and temperature; stage 2 sacral decubitii. Labs and Radiology: reviewed. 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 Patient has been shaking, weak, with frequent falls at home. He was found to have orthostatic hypertension in the ED. The last week he has been very weak and shakey. he had fallen 5 times mostly in the mornings soon after getting up from bed. Went to see PMD Dr Tan and was found o have hypotension on standing ans was sent to the ED. In the ED he was found to have supine hypertension with large drop on standing up when he would become symptomatic and weak and shakey. He was admitted for orthostatic hypotension with gait instability and falls. During the hospitalization had fever with rising WBC. Source of infection could not be determined treated empirically with antibiotics. ID felt may have meningitis however LP could not be done due to severe thrombocytopenia. He then became uremic with lethargy and was initiated on HD. Patient remains lethargic FUO will repeat CT head and ct chest with contrast. Discussed about [place] with Shiela . SHe did not want to do it. She wanted us to just treat. Metabolic encephalopathy ? cause Initially thought to be uremic but no improvement after several sessions of HD. Treated empirically for meningitis. Platelet count is improving. Once above 100K will reconsider LP if ID agrees. 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 Thrombocytopenia possibly due to infection and uremia with underlying cirrhosis of liver improving. MSSA bacterimia with chest wall abscess growing MSSA NO other source of infection has been determined There was concern for meningitis however LP could not be done due to thro mbocytopenia, empirically treated with ceftriaxone and vancomycin. on Cefazolin for MSSA bacterimia now. CT thoracic spine negative. Chronic urinary retention with incomplete emptying has history of urethral stricture has surgical correction done with urethral opening now at the proximal penile shaft on inferior aspect Dr Pham helped to delineate the anatomy and he personally placed straight cath which passed easily without any obstruction 16 Fr Sargent was later inserted by the nurses with no problem Gait instability and falls from orthostatic hypotension and diabetic neuropathy Sub acute rehab as per PT when pt ready Supine hypertension with orthostatic hypotension possibly due to autonomic neuropathy now no hypertension. nifedipine with hold parameters. Chronic anemia due to CKD hh stable Hypertension continue home meds Diabetes sugars lower last 2 days, poor oral intake lispro and levemir as per sliding scale. dose lowered. CAD/CABG continue asa, statin, betablocker BPH continue flomax and finasteride. 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 h/o Complete heart block s/p pacemaker DVT prophylaxis in place. VS,Fishbone, I+O VS, Fishbone, I+O Laboratory Tests 11/20/19 08:02 Vital Signs Date Time Temp Pulse Resp B/P (MAP) Pulse Ox O2 Delivery O2 Flow Rate FiO2 11/20/19 09:17 85 148/70 11/20/19 08:00 96.9 17 97 Room Air 11/18/19 20:00 I&O- Last 24 Hours up to 6 AM 11/20/19 06:00 Intake Total 720 ml Output Total 550 ml Balance 170 ml LIO NICOLE MD Nov 20, 2019 09:31
[2019-11-20] MEDS ORDERED: ISOVUE-370 76% 100ML VIAL (Q9967) As Ordered ONE (09:36)
[2019-11-20 10:01] LABS: C REACTIVE PROTEIN QUANTITATIV 12.2 MG/DL (0.00-0.30)
--- NOTE | 2019-11-20 11:59 | REP ---
CT CHEST WITH IV CONTRAST: HISTORY: Fever of unknown origin. Comparison is made with chest x-ray from November 14, 2019. CT CONTRAST DOSE: 100 mL of intravenous Isovue 370. CT FINDINGS: There are patchy areas of parenchymal consolidation in the lower lobes posteriorly which may be inflammatory infiltrates. There is no pleural effusion but there is some mild upper abdominal ascites about the superior portions of the liver and spleen. Gallbladder is surgically absent. There is an accessory splenule in the left upper quadrant of the abdomen. Median sternotomy wires are seen. Cardiomegaly is observed with pacemaker in place. A right-sided tunnel catheter is seen in place in the internal jugular vein terminating in the superior vena cava. No pericardial effusion is seen. No hilar or mediastinal mass or adenopathy is observed. The lung hurtado are otherwise essentially clear. There is a small area of linear discoid atelectasis in the left apex. No bony destructive lesion. IMPRESSION: There is patchy parenchymal consolidation in the posterior aspects of the lower lobes bilaterally consistent with subtle infiltrates. There is mild ascites in the upper abdomen. Electronically Signed by David Thapa MD 11/20/2019 12:46 P
--- NOTE | 2019-11-20 11:59 | REP ---
CT BRAIN WITHOUT AND WITH IV CONTRAST: HISTORY: Fever of unknown origin. Pacemaker patient. Comparison brain CT study November 16, 2019. CT CONTRAST DOSE: 100 mL of intravenous Isovue [address] FINDINGS: Bony calvarium is unremarkable. Visualized paranasal sinuses are clear except for partial opacification of one of the right ethmoid air cells. Vascular calcification is noted in the distal vertebral and distal carotid arteries as before. There is moderate generalized atrophy. There are two small but fairly well circumscribed low densities in the left basal ganglia consistent with lacunar infarcts. The largest of these is in the genu of the internal capsule and measures 7 mm in size. This is more sharply circumscribed than on prior study. This may be a subacute lacunar infarct. On the right, there is a subtle low density area in the basal ganglia as well not definitely present previously. There is no abnormal contrast enhancement in either of these findings. There is no evidence of intracranial hemorrhage. No cortical infarction is appreciated. Postcontrast images show enhancement in normal vasculature. No abnormal contrast enhancement is appreciated. Generalized volume loss again noted. IMPRESSION: There is a well-circumscribed 7 mm low density area in the left basal ganglia consistent with subacute lacunar infarction. This appears to be a new finding. There is another tiny lacunar infarction in the left basal ganglia and a questionable subacute lacunar infarct in the right basal ganglia. No abnormal contrast enhancement is appreciated. Electronically Signed by David Thapa MD 11/20/2019 12:46 P
[2019-11-20 13:07] LABS: CLOSTRIDIUM DIFFICILE PCR NEGATIVE (NEGATIVE)
--- NOTE | 2019-11-20 13:48 | IPN ---
DATE OF VISIT: 11/20/2019 Mr. Reeves is seen this morning on his bedside. Nursing staff is getting ready to send him down for a CAT scan of head and chest. The patient remains poorly responsive and did open his eyes, but could not talk. He was dialyzed yesterday again which he tolerated well. 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 On physical exam, now his temperature is down to 96.9 degrees Fahrenheit, heart rate 85 per minute and respiratory rate 17 per minute. Blood pressure 148/70 mmHg and oxygen saturation 97% on room air. Head is atraumatic. His eyes are closed. Oral mucosa is somewhat dry and oral hygiene is poor. Neck is supple, though he does squeeze his eyes on moving his neck. His heart sounds are irregular in rhythm and lungs have diminished breath sounds. Abdomen: Soft and nontender and bowel sounds are normal. Extremities: Without any cyanosis or clubbing. Neurologically, he remains obtunded, though he did open his eyes but could not talk today. Today's labs show WBC count 16.3, hemoglobin 8.9 and hematocrit 26.7. Platelets 110. Sodium 136, potassium 4.5, CO2 27, BUN 43 and creatinine 3.32. His C-reactive protein is up to 12.20 today. PROBLEMS: 1. Acute renal failure superimposed on chronic kidney disease. The patient remains oliguric and was dialyzed yesterday. We will plan to dialyze him again today. At present, there is no emergent need for dialysis today. 2. Altered mentation, probably related to a neurological issue. CT scan of head is being done today to rule out any possibility of a new stroke. I do not feel that uremia has any contribution in his altered mentation. 3. Fever and leukocytosis. The patient did have blood culture positive for Staph aureus and has been treated. It remains to be seen what his imaging studies show and repeat blood cultures are negative so far. He is being managed by the hospitalist service and infectious disease.
[2019-11-20] MEDS: PIPERACILLIN/TAZOBACTAM SOD 2.25 GM in D5W MINI-BAG PLUS 50 ML IV SCH (17:34)
[2019-11-20] MEDS: ROSUVASTATIN 10 MG TAB (CRESTOR) PO SCH (17:35)
[2019-11-20] MEDS: NS 1,000 ML IV SCH (20:39)
--- NOTE | 2019-11-20 21:02 | IPN ---
DATE: 11/20/2019 James had a recurrent fever today. His mental status seems to be a little better. He was able to follow command, open his mouth, stick his tongue, and say that he is in the hospital. PHYSICAL EXAMINATION: He is lethargic but following commands. Heart: Normal S1, S2. There is no systolic ejection murmur appreciated. Irregular. Lungs: Exterior rhonchi but fair air entry. Abdomen: Soft, nontender. No hepatosplenomegaly. Extremities: Without cyanosis or clubbing. He has some ankle edema. Neurologic exam: He did open his eyes and answer that he was in the hospital. There is no neck stiffness. No headache. IMAGING STUDIES: Head CT done without and with contrast today shows some well circumcised 7 mm low-density in the left basal ganglia consistent with subacute lacunar infarct, new finding, another lacunar infarct that is smaller in the left basal ganglia and possibly in the right. Chest CT showed some patchy infiltrates in the bases. IMPRESSION: MSSA bacteremia on IV cefazolin with repeat negative blood cultures. Patient with recurrent fever. Current new finding is possibly embolic phenomena to the brain, could be septic emboli from Staphylococcus aureus with three lacunar infarcts. Chest CT was abnormal with some basilar infiltrates but these could be congestive heart failure and not pneumonia as the patient has had recurrent fever, white count elevation to 16,000, would suggest switching his cefazolin to Zosyn which would cover for hospital-acquired / aspiration pneumonia. PLAN: Discontinue IV cefazolin, switch to Zosyn for 10 days, then could be switched back to cefazolin. The patient will still need 6 weeks of total IV antibiotics. Lumbar puncture is not needed at this point, he does not have a headache or neck stiffness and therefore meningitis is unlikely but his mental status is due to his embolic phenomena and to infection. Case has been discussed with Dr. Farmer.
[2019-11-21 04:00] VITALS: BP 134/60
[2019-11-21] MEDS: PIPERACILLIN/TAZOBACTAM SOD 2.25 GM in D5W MINI-BAG PLUS 50 ML IV SCH ×2 (04:16→15:30)
[2019-11-21] MEDS: SODIUM CHLORIDE 0.9% INJ 10 ML SYR IV SCH ×2 (05:16→17:29)
[2019-11-21] MEDS: TAMSULOSIN 0.4 MG CAP PO SCH ×2 (05:27→21:00)
[2019-11-21] MEDS: FINASTERIDE 5 MG TAB PO SCH (05:27)
[2019-11-21] MEDS: METOPROLOL SUCC *XL* 25MG TAB (TopROL *XL*) PO SCH (05:27)
[2019-11-21 05:38] LABS: HEMATOCRIT 28.4 % (42.0-52.0); HEMOGLOBIN 9.2 g/dl (13.5-17.5); MEAN CORPUSCULAR HEMOGLOBIN 30.8 pg (27.0-33.0); MEAN CORPUSCULAR HGB CONC 32.4 g/dl (32.0-36.5); PLATELET COUNT, AUTOMATED 115 10^3/uL (150-450); RED BLOOD COUNT 2.99 10^6/uL (4.30-6.10); WHITE BLOOD COUNT 14.5 10^3/uL (4.0-10.0)
[2019-11-21] MEDS: VANICREAM MOISTURIZING SKIN CREAM 113GM TUBE TOP SCH ×2 (05:53→21:25)
[2019-11-21] MEDS: NYSTATIN 100,000 UNITS/GM TOPICAL PWD 15 GM TOP SCH ×2 (05:54→21:26)
[2019-11-21 06:08] LABS: CALCIUM LEVEL 7.6 MG/DL (8.8-10.2); CREATININE FOR GFR 4.61 MG/DL (0.70-1.30); POTASSIUM SERUM 4.5 MEQ/L (3.5-5.1)
[2019-11-21] MEDS: LEVEMIR (INSULIN DETEMIR) 1 UNITS/0.01ML SC SCH ×2 (06:15→21:00)
[2019-11-21 08:00] VITALS: BP 142/76
[2019-11-21] MEDS ORDERED: DARBEPOETIN 200MCG/0.4ML *DIALYSIS* SYRINGE (J0882 PER 1MCG) IV SCH (10:00)
[2019-11-21 10:12] LABS: PERCENT SATURATION 15.4 % (19.7-50.0)
[2019-11-21 12:00] VITALS: BP 138/63
[2019-11-21] MEDS ORDERED: IRON SUCROSE 100MG 5ML VIAL (J1756 PER 1MG) IV SCH (12:15)
[2019-11-21 16:00] VITALS: BP 146/70
[2019-11-21] MEDS: NS 1,000 ML IV SCH (17:29)
[2019-11-21] MEDS: ROSUVASTATIN 10 MG TAB (CRESTOR) PO SCH (17:30)
--- NOTE | 2019-11-21 19:55 | IPN ---
DATE: 11/21/2019 SUBJECTIVE: The patient was seen and examined at the bedside today morning during hemodialysis. The patient was very obtunded, laying in bed, hemodynamically stable otherwise and tolerating the hemodialysis procedure. I actually had his finger sticks checked and glucose level was more than 100. I was told by the dialysis nurse that the patient came obtunded to the dialysis center. He is currently not on any opioids. He is unable to provide any review of systems. He is arousable but with painful stimuli. OBJECTIVE: Vital signs: Temperature is 97.2 degrees Fahrenheit, blood pressure 138/63, pulse is 75, respiratory rate of 16, saturating 96% on room air. Intake and output: Urine output recorded is 50 mL. Weight in the bed scale is 88.4 kg. PHYSICAL EXAMINATION: General: Patient is obtunded, laying in bed, getting hemodialysis done. Head and neck exam: Eyes are closed. Mucous membranes are moist. Neck is supple. He has a right IJ tunneled hemodialysis catheter which is being used for dialysis. Cardiovascular: S1, S2, regular rate. No edema of the bilateral lower extremities. Respiratory: Chest is clear to auscultation bilaterally. Bilateral equal air entry. No rales or rhonchi. Abdomen: Soft, positive bowel sounds. Nontender. No organomegaly. Musculoskeletal: No clubbing or cyanosis. Pulses are 2+. 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 LABORATORY REVIEW: CBC showed WBC 14.5, hemoglobin 9.2, platelets of 115. BMP showed sodium 134, potassium 4.5, chloride 102, bicarbonate 25, BUN 60, creatinine is 4.6, iron 31, transferrin saturation is 15.4, ferritin is 683. CURRENT INPATIENT MEDICATIONS: Patient's medications were all reviewed by me. He was started on Zosyn 2.25 grams IV every 12 hours and he is on currently on normal saline at 40 mL/hour. No other change in the medications today as compared with yesterday. ASSESSMENT/PLAN: 1. Acute renal failure. The patient is still dialysis dependent. He is being dialyzed today. Ultrafiltration goal will be 2 liters. 2. Metabolic encephalopathy. The patient had a CT scan of the head done which showed multiple infarcts and he also possibly has aspiration pneumonitis. He currently is on IV Zosyn. I do not believe that renal failure is contributing to his metabolic encephalopathy at this time since he is being adequately dialyzed. 3. Anemia in end-stage renal disease. The patient has iron deficiency as well. I have started the patient on IV Venofer with dialysis and he is also started on Aranesp 200 mcg IV with hemodialysis.
[2019-11-21 20:00] VITALS: BP 120/56
[2019-11-22] VITALS: BP 121/56
[2019-11-22 04:00] VITALS: BP 115/57
[2019-11-22] MEDS: PIPERACILLIN/TAZOBACTAM SOD 2.25 GM in D5W MINI-BAG PLUS 50 ML IV SCH ×2 (04:23→17:01)
[2019-11-22] MEDS: SODIUM CHLORIDE 0.9% INJ 10 ML SYR IV SCH ×2 (04:24→17:07)
[2019-11-22 05:19] LABS: HEMATOCRIT 28.4 % (42.0-52.0); HEMOGLOBIN 9.3 g/dl (13.5-17.5); MEAN CORPUSCULAR HEMOGLOBIN 30.9 pg (27.0-33.0); MEAN CORPUSCULAR HGB CONC 32.7 g/dl (32.0-36.5); MEAN CORPUSCULAR VOLUME 94.4 fl (80.0-96.0); PLATELET COUNT, AUTOMATED 115 10^3/uL (150-450); RED BLOOD COUNT 3.01 10^6/uL (4.30-6.10)
[2019-11-22 05:38] LABS: CALCIUM LEVEL 7.2 MG/DL (8.8-10.2); CREATININE FOR GFR 3.6 MG/DL (0.70-1.30); GLOMERULAR FILTRATION RATE 17.3 (>35); POTASSIUM SERUM 4.4 MEQ/L (3.5-5.1)
[2019-11-22 08:00] VITALS: BP 117/57
--- NOTE | 2019-11-22 08:09 | IPNPDOC ---
Text Note Date of Service The patient was seen on 11/21/19. NOTE Subjective: No further fever overnight. seen at HD. Mental status about the same . is trying to follow some commands. Physical Exam: Vitals: As below General Exam: Lethargic. Only groaning when called or moved around. does try to follow commands a little. Eye Exam: Positive: PERRLA, Conjunctiva & lids normal, EOMI; Negative: Sclera icteric ENT Exam: Positive: Atraumatic, Mucous membr. moist/pink, Pharynx Normal Neck Exam: Positive: Supple; but has tenderness. Negative: JVD, thyromegaly Chest Exam: Positive: Clear to auscultation anteriorly, Normal air movement, tenderness in the mid back, bibasal crackles. Heart Exam: Positive: Rate Normal, Regular Rhythm, Normal S1, Normal S2; Negative: Murmurs, Rubs Abdomen Exam: Positive: Hyperperistaltic bowel sounds, Soft Negative: Hepatosplenomegaly Extremity Exam: Negative: Clubbing, Cyanosis, Edema Skin Exam: Positive: Nl turgor and temperature; stage 2 sacral decubitii. Labs and Radiology: reviewed. 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 Patient has been shaking, weak, with frequent falls at home. He was found to have orthostatic hypertension in the ED. The last week he has been very weak and shakey. he had fallen 5 times mostly in the mornings soon after getting up from bed. Went to see PMD Dr Tan and was found o have hypotension on standing and was sent to the ED. In the ED he was found to have supine hypertension with large drop on standing up when he would become symptomatic and weak and shakey. He was admitted for orthostatic hypotension with gait instability and falls. During the hospitalization he had fever with rising WBC. He was found to have MSSA bacterimia with a chest wall small abscess which also grew MSSA. His mental status deteriorated and he became more and more lethargic. ID felt may have meningitis however LP could not be done due to severe thrombocytopenia so was tr eated empirically. He also became uremic and was initiated on HD. However even after several sessions of HD his mental status did not improve and he started having fever again. Head CT with contrast and CT chest with contrast was done. Head CT showed 3 lacunar infarcts in 3 different areas which were felt to be septic emboli. Chest CT with patchy infiltrates at th bases could be pneumonia vs atelectasis. Was assumed to be pneumonia either HCAP or aspiration so antibiotic was changed from cefazolin to zosyn. Patient remains lethargic but arousable. MSSA bacterimia with possibly septic emboli to brain with chest wall abscess growing MSSA NO other source of infection has been determined There was concern for meningitis however LP could not be done due to thrombocytopenia, empirically treated with ceftriaxone and vancomycin. Niw ni neck stiffness of pain so no signs of meningitis. CT thoracic spine negative. Head CT on 11/20/19 done without and with contrast today shows some well circu mcised 7 mm low-density in the left basal ganglia consistent with subacute lacunar infarct, new finding, another lacunar infarct that is smaller in the left basal ganglia and possibly in the right. possibly septic emboli. Discussed about [place] with Shiela . She did not want to do it. She wanted us to just treat. antibiotic changed from cefazoln to zosyn to cove for pneumonia. Pneumonia Vs atelectasis Aspiration vs Hospital acquired Chest CT showed some patchy infiltrates in the bases. new fever so will treat for pnaumonia antibitoic changed from cefazolin to Zosyn Metabolic encephalopathy from septic emboli to brain along with prior uremia uremia has now resolved. 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 Thrombocytopenia possibly due to infection and uremia with underlying cirrhosis of liver improved CT abdomn showed : Liver demonstrates a lobular surface contour, and enlargement of the left and caudate lobes, findings most likely consistent with cirrhosis. There is mild splenomegaly with a maximum span of 13 centimeters. ammonia was normal Chronic urinary retention with incomplete emptying has history of urethral stricture has surgical correction done with urethral opening now at the proximal penile shaft on inferior aspect Dr Pham helped to delineate the anatomy and he personally placed straight cath which passed easily without any obstruction 16 Fr Sargent was later inserted by the nurses with no problem Gait instability and falls from orthostatic hypotension and diabetic neuropathy Sub acute rehab as per PT when pt ready Supine hypertension with orthostatic hypotension possibly due to autonomic neuropathy now no hypertension. nifedipine with hold parameters. Chronic anemia due to CKD hh stable Hypertension continue home meds Diabetes sugars lower last 2 days, poor oral intake lispro and levemir as per sliding scale. dose lowered. CAD/CABG continue asa, statin, betablocker BPH continue flomax and finasteride. 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 h/o Complete heart block s/p pacemaker DVT prophylaxis in place. VS,Fishbone, I+O VS, Fishbone, I+O Laboratory Tests 11/21/19 05:08 Vital Signs Date Time Temp Pulse Resp B/P (MAP) Pulse Ox O2 Delivery O2 Flow Rate FiO2 11/21/19 08:00 97.4 78 16 142/76 (98) 99 Room Air 11/18/19 20:00 I&O- Last 24 Hours up to 6 AM 11/21/19 06:00 Intake Total 1470 ml Output Total 50 ml Balance 1420 ml LIO NICOLE MD Nov 21, 2019 09:25
--- NOTE | 2019-11-22 08:24 | IPNPDOC ---
Text Note Date of Service The patient was seen on 11/22/19. NOTE Subjective: No new events. remains lethargic, no oral intake for several days now too lethargic. No fever or chills. Does not open eyes does try to show his tongue. Now patient is DNR and DNI. Physical Exam: Vitals: As below General Exam: Lethargic. Only groaning when called or moved around. does try to follow commands a little. Eye Exam: Positive: PERRLA, Conjunctiva & lids normal, EOMI; Negative: Sclera icteric ENT Exam: Positive: Atraumatic, Mucous membr. moist/pink, Pharynx Normal Neck Exam: Positive: Supple; but has tenderness. Negative: JVD, thyromegaly Chest Exam: Positive: Clear to auscultation anteriorly, Normal air movement, tenderness in the mid back, bibasal crackles. Heart Exam: Positive: Rate Normal, Regular Rhythm, Normal S1, Normal S2; Negative: Murmurs, Rubs Abdomen Exam: Positive: Hyperperistaltic bowel sounds, Soft Negative: Hepatosplenomegaly Extremity Exam: Negative: Clubbing, Cyanosis, Edema Skin Exam: Positive: Nl turgor and temperature; stage 2 sacral decubitii. Labs and Radiology: reviewed. 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 Patient has been shaking, weak, with frequent falls at home. He was found to have orthostati c hypotension in the ED. The last week he has been very weak and shaky. he had fallen 5 times mostly in the mornings soon after getting up from bed. Went to see PMD Dr Tan and was found o have hypotension on standing and was sent to the ED. In the ED he was found to have supine hypertension with large drop on standing up when he would become symptomatic and weak and shakey. He was admitted for orthostatic hypotension with gait instability and falls. During the hospitalization he had fever with rising WBC. He was found to have MSSA bacterimia with a chest wall small abscess which also grew MSSA. His mental status deteriorated and he became more and more lethargic. ID felt may have meningitis however LP could not be done due to severe thrombocytopenia so was treated empirically. He also became uremic and was initiated on HD. However even after several sessions of HD his mental status did not improve and he started having fever again. Head CT with contrast and CT chest with contrast was done. Head CT showed 3 lacunar infarcts in 3 different areas which were felt to be septic emboli. Chest CT with patchy infiltrates at th bases could be pneumonia vs atelectasis. Was assumed to be pneumonia either HCAP or aspiration so antibiotic was changed from cefazolin to zosyn. Patient remains lethargic. MSSA bacterimia with possibly septic emboli to brain with chest wall abscess growing MSSA NO other source of infection has been determined There was concern for meningitis however LP could not be done due to thrombocytopenia, empirically treated with ceftriaxone and vancomycin. Niw ni neck stiffness of pain so no signs of meningitis. CT thoracic spine negative. Head CT on 11/20/19 done without and with contrast today shows some well circumcised 7 mm low-density in the left basal ganglia consistent with subacute lacunar infarct, new finding, another lacunar infarct that is smaller in the left basal ganglia and possibly in the right. possibly septic emboli. Discussed about [place] with Shiela . She did not want to do it. She wanted us to just treat. antibiotic changed from cefazoln to zosyn to cover for pneumonia. Pneumonia Vs atelectasis Aspiration vs Hospital acquired Chest CT showed some patchy infiltrates in the bases. new fever so will treat for pneumonia antibiotic changed from cefazolin to Zosyn Metabolic encephalopathy from septic emboli to brain along with prior uremia uremia has now resolved. started on HD on 11/15/19 RICHY on CKD stage 4 Now on HD. initiated on HD this admission will see if renal function recovers or not. Thrombocytopenia possibly due to infection and uremia with underlying cirrhosis of liver improved CT abdomn showed : Liver demonstrates a lobular surface contour, and enlargement of the left and caudate lobes, findings most likely consistent with cirrhosis. There is mild splenomegaly with a maximum span of 13 centimeters. ammonia was normal Diabetes sugars low due to no oral intake stop levemir will give dex/NS IVF. Chronic urinary retention with incomplete emptying has history of urethral stricture has surgical correction done with urethral opening now at the proximal penile shaft on inferior aspect Dr Pham helped to delineate the anatomy and he personally placed straight cath which passed easily without any obstruction 16 Fr Sargent was later inserted by the nurses with no problem Gait instability and falls from orthostatic hypotension and diabetic neuropathy Sub acute rehab as per PT when pt ready Chronic anemia due to CKD hh stable Hypertension was on metoprolol now stopped will restart when more awake. CAD/CABG was on asa, statin, betablocker now none as too lethargic for any oral intake. will restart when patient more awake. BPH was on flomax and finasteride. 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 h/o Complete heart block s/p pacemaker DVT prophylaxis in place. Code: DNR and DNI VS,Fishbone, I+O VS, Fishbone, I+O Laboratory Tests 11/22/19 04:55 Vital Signs Date Time Temp Pulse Resp B/P (MAP) Pulse Ox O2 Delivery O2 Flow Rate FiO2 11/22/19 04:00 97.5 98 19 115/57 (76) 96 Room Air 11/18/19 20:00 I&O- Last 24 Hours up to 6 AM 11/22/19 06:00 Intake Total 930 ml Output Total 1060 ml Balance -130 ml LIO NICOLE MD Nov 22, 2019 08:24
[2019-11-22] MEDS: D5W/0.9% SODIUM CHLORIDE 1,000 ML IV SCH (08:59)
[2019-11-22] MEDS: METOPROLOL SUCC *XL* 25MG TAB (TopROL *XL*) PO SCH (09:00)
[2019-11-22] MEDS: VANICREAM MOISTURIZING SKIN CREAM 113GM TUBE TOP SCH ×2 (09:02→19:45)
[2019-11-22] MEDS: NYSTATIN 100,000 UNITS/GM TOPICAL PWD 15 GM TOP SCH ×2 (09:02→19:43)
[2019-11-22 12:00] VITALS: BP 145/70
--- NOTE | 2019-11-22 14:32 | IPN ---
DATE OF SERVICE: 11/22/2019 SUBJECTIVE: The patient was seen and examined at the bedside today morning. The patient is very obtunded and drowsy. He wakes up to very loud commands and painful stimuli. He was dialyzed yesterday. He tolerated the hemodialysis procedure well. Only 1 liter of fluid was removed. The patient is otherwise hemodynamically stable. OBJECTIVE: Vital signs: Temperature is 97.2 degrees Fahrenheit, blood pressure 145/70, pulse is 87, respiratory rate of 16, saturating 98% on room air. Intake and output: There is no significant urine output. It was only 10 mL since overnight. Ultrafiltration with hemodialysis was 1 liter. Weight in the bed scale is 56.4 kg. PHYSICAL EXAM: General: The patient is very sleepy, drowsy, and obtunded laying in bed. Eyes are closed. He opens eyes on painful stimuli. Mucous membranes are moist. Neck is supple. There is no jugular venous distention (JVD). Cardiovascular: S1, S2, regular rate. No edema of the bilateral lower extremities. Respiratory: Chest is clear to auscultation bilaterally. Bilateral equal air entry. No rales or rhonchi. Abdomen: Soft, positive bowel sounds. Nontender. Genitourinary: He has an indwelling Sargent catheter. Musculoskeletal: No clubbing or cyanosis. Pulses are 2+. RETAIL SUPPORT ASSOCIATE: The patient is very obtunded drowsy and sleepy. LAB REVIEW: CBC showed WBC of 14, hemoglobin is 9.3, platelets of 115. BMP showed sodium 135, potassium 4.4, chloride 102, bicarb 24, BUN 40, creatinine is 3.6, calcium 7.2. CURRENT INPATIENT MEDICATIONS: The patient's medications were all reviewed by me. He continues to be on D5 normal saline at 40 mL an hour. Calcitriol has been stopped. Finasteride has been stopped. Insulin Levemir has been stopped. Rosuvastatin is stopped, and Flomax as also stopped. ASSESSMENT/PLAN: 1. Acute renal failure. The patient is dialysis dependent. He was dialyzed yesterday. Next hemodialysis will be on Saturday. 2. Metabolic encephalopathy. Multiple etiologies, including strokes that was seen on the CAT scan and aspiration pneumonitis. The patient is currently on intravenous (IV) D5 normal saline. He continues to be on IV antibiotics. Electrolytes are within the acceptable range. 3. Anemia in end-stage renal disease. He was started on Venofer and Aranesp. Hemoglobin level is slowly improving. 4. Secondary hyperparathyroidism. The patient is very obtunded. Calcitriol has been stopped, and I agree with that. 6. Disposition. The patient overall has a very poor prognosis given his metabolic encephalopathy, renal failure, multiple strokes. He was made DO NOT RESUSCITATE/DO NOT INTUBATE (DNR/DNI) by the family, after discussion with the family yesterday.
[2019-11-22 16:00] VITALS: BP 143/72
[2019-11-22 20:00] VITALS: BP 139/61
[2019-11-23 04:00] VITALS: BP 136/64
[2019-11-23] MEDS: PIPERACILLIN/TAZOBACTAM SOD 2.25 GM in D5W MINI-BAG PLUS 50 ML IV SCH ×2 (04:38→15:32)
[2019-11-23] MEDS: SODIUM CHLORIDE 0.9% INJ 10 ML SYR IV SCH ×2 (04:38→17:37)
[2019-11-23 04:58] LABS: HEMATOCRIT 27.6 % (42.0-52.0); HEMOGLOBIN 8.8 g/dl (13.5-17.5); MEAN CORPUSCULAR HEMOGLOBIN 31.1 pg (27.0-33.0); MEAN CORPUSCULAR HGB CONC 31.9 g/dl (32.0-36.5); MEAN CORPUSCULAR VOLUME 97.5 fl (80.0-96.0); PLATELET COUNT, AUTOMATED 132 10^3/uL (150-450); RED BLOOD COUNT 2.83 10^6/uL (4.30-6.10); WHITE BLOOD COUNT 12.9 10^3/uL (4.0-10.0)
[2019-11-23 05:18] LABS: CREATININE FOR GFR 4.96 MG/DL (0.70-1.30); GLOMERULAR FILTRATION RATE 11.9 (>35); POTASSIUM SERUM 4.5 MEQ/L (3.5-5.1)
[2019-11-23 08:00] VITALS: BP 129/61
[2019-11-23 08:26] LABS: C REACTIVE PROTEIN QUANTITATIV 12.4 MG/DL (0.00-0.30)
[2019-11-23] MEDS: VANICREAM MOISTURIZING SKIN CREAM 113GM TUBE TOP SCH ×2 (09:20→20:19)
[2019-11-23] MEDS: D5W/0.9% SODIUM CHLORIDE 1,000 ML IV SCH (09:21)
[2019-11-23] MEDS: NYSTATIN 100,000 UNITS/GM TOPICAL PWD 15 GM TOP SCH ×2 (09:21→20:18)
--- NOTE | 2019-11-23 09:22 | IPNPDOC ---
Text Note Date of Service The patient was seen on 11/23/19. NOTE Subjective:A little more awake this morning. Following some commands. open eyes to command. Was able to squeeze with right hand but not the left. Could hold up right hand but not the left. Physical Exam: Vitals: As below General Exam: Lethargic. oening eyes when called, does try to follow commands a little. Eye Exam: Positive: PERRLA, Conjunctiva & lids normal, EOMI; Negative: Sclera icteric ENT Exam: Positive: Atraumatic, Mucous membr. moist/pink, Pharynx Normal Neck Exam: Positive: Supple; but has tenderness. Negative: JVD, thyromegaly Chest Exam: Positive: Clear to auscultation anteriorly, Normal air movement, tenderness in the mid back, bibasal crackles. Heart Exam: Positive: Rate Normal, Regular Rhythm, Normal S1, Normal S2; Negative: Murmurs, Rubs Abdomen Exam: Positive: Hyperperistaltic bowel sounds, Soft Negative: Hepatosplenomegaly Extremity Exam: Negative: Clubbing, Cyanosis, Edema Skin Exam: Positive: Nl turgor and temperature; stage 2 sacral decubitii and also on scrotum. EVALUATION ANALYST: Left upper extremity 0/5 power. Decreased tone ont eh left side of the body appears more flaccid. Labs and Radiology: reviewed. 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 Patient has been shaking, weak, with frequent falls at home. He was found to have ortho static hypotension in the ED. The last week he has been very weak and shaky. he had fallen 5 times mostly in the mornings soon after getting up from bed. Went to see PMD Dr Tan and was found o have hypotension on standing and was sent to the ED. In the ED he was found to have supine hypertension with large drop on standing up when he would become symptomatic and weak and shakey. He was admitte d for orthostatic hypotension with gait instability and falls. During the hospitalization he had fever with rising WBC. He was found to have MSSA bacterimia with a chest wall small abscess which also grew MSSA. His mental status deteriorated and he became more and more lethargic. ID felt may have me ningitis however LP could not be done due to severe thrombocytopenia so was treated empirically. He also became uremic and was initiated on HD. However even after several sessions of HD his mental status did not improve and he started having fever again. Head CT with contrast and CT chest with contrast was done. Head CT showed 3 lacunar infarcts in 3 different areas which were felt to be septic emboli. Chest CT with patchy infiltrates at th bases could be pneumonia vs atelectasis. Was assumed to be pneumonia either HCAP or aspiration so antibiotic was changed from cefazolin to zosyn. Patient remains lethargic. MSSA bacterimia with possibly septic emboli to brain with chest wall abscess growing MSSA NO other source of infection has been determined There was concern for meningitis however LP could not be done due to thrombocytopenia, empirically treated with ceftriaxone and vancomycin. Niw ni neck stiffness of pain so no signs of meningitis. CT thoracic spine negative. Head CT on 11/20/19 done without and with contrast today shows some well circumcised 7 mm low-density in the left basal ganglia consistent with subacute lacunar infarct, new finding, another lacunar infarct that is smaller in the left basal ganglia and possibly in the right. possibly septic emboli. Discussed about [place] with Shiela . She did not want to do it. She wanted us to just treat. antibiotic changed from cefazoln to zosyn to cover for pneumonia. Pneumonia Vs atelectasis Aspiration vs Hospital acquired Chest CT showed some patchy infiltrates in the bases. new fever so will treat for pneumonia antibiotic changed from cefazolin to Zosyn Metabolic encephalopathy from septic emboli to brain along with prior uremia uremia has now resolved. started on HD on 11/15/19 Left sided hemiparesis decreased tone on the left. Could be due to right basal ganglia lacunar infarct Also has 2 lacunar infarcts on the left basal ganglia. the lacunar infarcts does not explain hs continued lethargy. RICHY on CKD stage 4 Now on HD. initiated on HD this admission will see if renal function recovers or not. Stage 2 sacral decubiti also a pressure ulcer stage 2 on the bottom of scrotum Thrombocytopenia possibly due to infection and uremia with underlying cirrhosis of liver improved CT abdomn showed : Liver demonstrates a lobular surface contour, and enlargement of the left and caudate lobes, findings most likely consistent with cirrhosis. There is mild splenomegaly with a maximum span of 13 centimeters. ammonia was normal Diabetes sugars low due to no oral intake stop levemir will give dex/NS IVF. Chronic urinary retention with incomplete emptying has history of urethral stricture has surgical correction done with urethral opening now at the proximal penile shaft on inferior aspect Dr Pham helped to delineate the anatomy and he personally placed straight cath which passed easily without any obstruction 16 Fr Sargent was later inserted by the nurses with no problem Gait instability and falls from orthostatic hypotension and diabetic neuropathy Sub acute rehab as per PT when pt ready Chronic anemia due to CKD hh stable Hypertension was on metoprolol now stopped will restart when more awake. CAD/CABG was on asa, statin, betablocker now none as too lethargic for any oral intake. will restart when patient more awake. BPH was on flomax and finasteride. 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 h/o Complete heart block s/p pacemaker DVT prophylaxis in place. Code: DNR and DNI VS,Justina, I+O VS, Justina, I+O Laboratory Tests 11/23/19 04:37 Vital Signs Date Time Temp Pulse Resp B/P (MAP) Pulse Ox O2 Delivery O2 Flow Rate FiO2 11/23/19 08:00 Room Air 11/23/19 04:00 96.2 93 18 136/64 (88) 97 11/18/19 20:00 I&O- Last 24 Hours up to 6 AM 11/23/19 06:00 Intake Total 650 ml Output Total 25 ml Balance 625 ml LIO NICOLE MD Nov 23, 2019 09:21
--- NOTE | 2019-11-23 12:45 | IPN ---
DATE OF SERVICE: 11/23/2019 SUBJECTIVE: The patient was seen and examined at the bedside today morning. He is still obtunded and sleepy. However, he is opening his eyes today to commands, and he tries to tell his name. As reported by nursing staff, the patient is still unable to eat anything. He still is on intravenous (IV) D5 normal saline. He is unable to provide any review of systems. OBJECTIVE: Vital signs: Temperature is 96.8 degrees Fahrenheit, blood pressure 129/61, pulse is 90, respiratory rate of 20, saturating 98% on room air. Intake and output: There is no urine output recorded since overnight. Weight in the bed scale is 85.8 kg. PHYSICAL EXAMINATION: General: The patient is obtunded, sleepy, and drowsy, laying in bed. Opens eyes to loud commands. Head and neck examination: The pupils are equally round and reactive to light. Mucous membranes are dry. Neck is supple. He has a tunneled hemodialysis catheter. Cardiovascular: S1, S2, regular rate. No edema of the bilateral lower extremities. Respiratory: Chest is clear to auscultation bilaterally. Bilateral equal air entry. No rales or rhonchi. Abdomen: Soft. Positive bowel sounds. Nontender. No organomegaly. Genitourinary: Indwelling Sargent catheter. Musculoskeletal: No clubbing or cyanosis. Pulses are 2+. 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 Answers very few questions. The patient has left-sided hemiparesis. He is unable to move his left arm. He tries to squeeze hand with his right hand. LABORATORY REVIEW: Complete blood count (CBC) showed WBC 12.9, hemoglobin 8.8, platelets are 132. Basic metabolic profile (BMP) showed sodium 139, potassium 4.5, chloride 104, bicarbonate 25, BUN 56, creatinine is 4.9. MICROBIOLOGY: No cultures are positive at this time. CURRENT INPATIENT MEDICATIONS: The patient's medications were all reviewed by me. There is no change in the medications today as compared with yesterday except that his Toprol XL has been stopped. ASSESSMENT AND PLAN: 1. Acute renal failure. The patient is dialysis dependent. No signs of renal recovery at this time. Next dialysis will be tomorrow morning. 2. Metabolic encephalopathy. The patient is still very encephalopathic. He is unable to eat. As per discussion with the family members done by the hospitalist team, the patient might need a feeding tube placement and transfer to a fpc. 3. Anemia in end-stage renal disease. Continue Thom and Perlita. DISPOSITION: The patient overall has a poor prognosis given multiple strokes, bedridden status, left hemiparesis, and end-stage renal disease.
[2019-11-23 15:47] VITALS: BP 102/45
--- NOTE | 2019-11-23 18:11 | IPN ---
DATE: 11/23/2019 James is doing better today. He opens his eyes and responds to questions. He stated he is not in any pain. I asked him why he not eating, whether he wanted a feeding tube, and he also answered no. I am not sure if he understands all my questioning, but he was able to squeeze my right hand, but not the left one. PHYSICAL EXAMINATION: Less lethargic, opening his eyes. Temperature is 98.3, pulse 94, respirations 15, blood pressure 102/65, oxygen saturation 98% on room air. HEART: Normal S1, S2. Distant. LUNGS: Clear anteriorly. No rales or rhonchi. ABDOMEN: Soft, obese, nontender. EXTREMITIES: No clubbing, cyanosis or edema. Eyes open. Answers no to questions. Left arm not moving. Right arm makes a grasp. IMPRESSION: 1. 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 He had three coronary infarctions. 2. Recurrent fever on Saturday. Possibly related to septic emboli versus pneumonitis. Therefore, the patient was switched to intravenous (IV) Zosyn from cefazolin to cover for a possibility of aspiration pneumonia versus hospital-acquired pneumonia. That will be of a total of seven days, currently day number day #4. 3. End-stage renal disease with no recovery and the patient is hemodialysis dependent. PLAN: Continue IV Zosyn for seven days. End of treatment will be and then resume cefazolin for a total of six weeks of treatment from first negative culture being on 11/14/2019. End of treatment would be 12/26/2019. LABORATORY DATA: White count 12.9, hemoglobin 8.8, hematocrit 27.6, platelets 132. Sodium 139, potassium 4.5, chloride 104, bicarbonate 25, BUN 56, creatinine 4.96, glucose 225, calcium 5. CRP 12.4. Blood cultures, two sets done on 11/20/2019, were negative. Chest CT showed patchy parenchymal consolidation in the posterior aspect of the lower lobes consistent with subtle infiltrates.
[2019-11-23 22:00] VITALS: BP 132/52
[2019-11-24] MEDS: PIPERACILLIN/TAZOBACTAM SOD 2.25 GM in D5W MINI-BAG PLUS 50 ML IV SCH ×2 (04:29→15:17)
[2019-11-24] MEDS: SODIUM CHLORIDE 0.9% INJ 10 ML SYR IV SCH ×2 (05:20→15:49)
[2019-11-24 06:00] VITALS: BP 128/61
[2019-11-24] MEDS: D5W/0.9% SODIUM CHLORIDE 1,000 ML IV SCH (08:08)
[2019-11-24] MEDS: VANICREAM MOISTURIZING SKIN CREAM 113GM TUBE TOP SCH ×2 (08:09→20:22)
[2019-11-24] MEDS: NYSTATIN 100,000 UNITS/GM TOPICAL PWD 15 GM TOP SCH ×2 (08:09→20:22)
[2019-11-24] MEDS ORDERED: HEPARIN 1,000 UNITS/ML 10ML VIAL (FOR RADIOLOGY& DIALYSIS ONLY)(J1644-10) XX ONE (12:00)
--- NOTE | 2019-11-24 12:16 | IPN ---
DATE OF SERVICE: 11/24/2019 SUBJECTIVE: The patient was seen and examined the bedside today morning during hemodialysis procedure. He is very sleepy, drowsy and obtunded. However, he is tolerating the hemodialysis procedure well. He continues to be on IV fluid hydration. OBJECTIVE: Vital Signs: Temperature is 97.4 degrees Fahrenheit, blood pressure 128/61, pulse is 91, respiratory rate of 17, saturating 97% on room air. Intake and output: There is no urine output recorded. Weight in the bed scale is 85.2 kg. PHYSICAL EXAMINATION: General: The patient is laying in bed. Eyes are closed. He responds to painful stimuli. Getting hemodialysis done. Head and Neck Exam: Pupils equally round and reactive to light. Neck is supple. He has a right internal jugular (IJ) tunneled hemodialysis catheter. Cardiovascular: S1, S2, regular rate. No edema of the bilateral lower extremities. Respiratory: Chest is clear to auscultation bilaterally. Bilateral equal air entry. No rales or rhonchi. Abdomen: Soft. Positive bowel sounds. Nontender. No organomegaly. Genitourinary: Indwelling Sargent catheter. Musculoskeletal: No clubbing or cyanosis. Pulses are 2+. 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 He does not move the left upper extremity and he moves the right arm on painful stimuli. LAB REVIEW: CBC showed a WBC 12.9, hemoglobin 8.8 and that was from yesterday. BMP is also from yesterday which showed a creatinine of 4.9 and potassium of 4.5. CURRENT INPATIENT MEDICATIONS: The patient's medications were all reviewed by me. He continues to be on IV Zosyn. He continues to be on IV fluid. No other change in the medications today as compared with yesterday. ASSESSMENT/PLAN: 1. End-stage renal disease. The patient is getting hemodialysis today because of poor oral intake, only 500 mL of fluid will be removed. Electrolytes levels are within the acceptable range. 2. Anemia in end-stage renal disease. Continue Aranesp and Venofer with dialysis. No need of blood transfusion. 3. Metabolic encephalopathy. It is multifactorial secondary to multiple strokes and septic emboli. 4. Methicillin-sensitive staphylococcus aureus (MSSA) bacteremia. Continue the current IV fluids. The patient currently on is on IV Zosyn which covers MSSA as well. When Zosyn is finished, the patient will be switched back to cefazolin as recommended by infectious disease. 5. Aspiration pneumonitis. The patient is currently on IV Zosyn. Dose is adequate for renal function. Duration is as per infectious disease.
[2019-11-24 14:00] VITALS: BP 127/53
--- NOTE | 2019-11-24 18:37 | IPN ---
DATE: 11/24/2019 James is not doing very well. He opens his eyes when I scream his name but otherwise he has not responded. He has not eaten in over a week. He has had no recurrent fever or chills since last Saturday. He is currently on Zosyn for a total of seven days, currently day number day number four out at seven that was added for the possibility of aspiration/hospital-acquired pneumonia. LABORATORY DATA: White count 12.9, hemoglobin 8.8, hematocrit 27.6, platelets 132. Sodium 139, potassium 4.5, chloride 104, bicarbonate 25, BUN 56, creatinine 4.96, glucose 225, calcium 7, CRP 12.4. Clostridium difficile was negative on 11/20/2019. Hepatitis B and C were negative. MRSA screen was not detected. PHYSICAL EXAMINATION: Opens his eyes whenever called by name but does not respond. Temperature is 98.2, pulse 97, respirations 19, blood pressure 127/53, oxygen saturation 98% on room air. HEART: Normal S1, S2, distant. No murmurs appreciated. LUNGS: Clear anteriorly. No rales or rhonchi. ABDOMEN: Soft, obese, nontender. EXTREMITIES: No clubbing, cyanosis or edema. Left arm flaccid, paralysis. Right arm, he grasps. He has not answered any questions, just has opened his eyes. IMPRESSION: 1. 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 The patient is currently on IV Zosyn to cover for MSSA and possible hospital-acquired pneumonia. He will be switched back to IV cefazolin on 11/27/2019. End of treatment will be 12/26/2019. 2. 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 3. End-stage renal disease, hemodialysis dependent. 4. No oral intake. PLAN: Hospitalist discussing whether the family wants to make him comfort measures or gastrostomy (G )tube placement.
--- NOTE | 2019-11-24 19:12 | IPNPDOC ---
Date Seen The patient was seen on 11/24/19. Progress Note SUBJECTIVE: 84-year-old male with past medical history of chronic kidney disease, coronary artery disease status post CABG, aortic stenosis, status post TAVR, diabetes mellitus, hypertension, hyperlipidemia and BPH who was admitted for MSSA bacteremia and acute on chronic kidney disease. Patient is now hemodialysis dependent, permacath was placed and getting hemodialysis as per nephrology. Patient has, located MSSA bacteremia due to the aortic valve replacement and pacemaker, CT of brain showing multiple infarcts, concerning for septic emboli. Patient is being treated as if he has endocarditis given his clinical presentation. Patient seen while undergoing hemodialysis today, minimally responsive to tactile stimuli, does not open eyes, does not follow commands, is moving some of his extremities and groaning. PHYSICAL EXAMINATION: VITAL SIGNS: Please see below. GENERAL: No distress HEENT: moist mucous membranes CARDIOVASCULAR EXAMINATION: S1, S2 RESPIRATORY EXAMINATION: Scattered rhonchi, no wheezing ABDOMINAL EXAMINATION: Soft, nondistended, positive bowel sounds EXTREMITIES: No edema SKIN: No rash NEUROLOGICAL EXAMINATION: Unable to assess PSYCHIATRIC EXAMINATION: Lethargic LABORATORY DATA, IMAGING STUDIES, MICROBIOLOGY: Please see below. ASSESSMENT AND PLAN: 84-year-old male with multiple medical comorbidities who is admitted for acute on chronic kidney disease and MSSA bacteremia complicated by valve replacement, pacemaker and likely septic emboli to the brain. PROBLEMS: 1. MSSA bacteremia: Complicated due to aortic valve replacement, permanent pacemaker and imaging concerning for septic emboli to the brain, being treated as endocarditis, currently on Zosyn, to also treat for hospital- acquired/aspiration pneumonia, will transition back to Ancef on 11/27/2019 to complete 6 weeks of antibiotics, infectious disease following. 2. Acute on chronic kidney failure: Patient is now hemodialysis dependent, permacath placed, underwent chemotherapy dialysis today, further hemodialysis as per nephrology. 3. CVA: CT had concerning for multiple infarcts consistent with septic emboli, patient minimally responsive, will discuss goals of care with family as patient has very poor prognosis given his current clinical presentation. 4. Diabetes mellitus: Sliding scale insulin coverage every 6 hours. DVT prophylaxis: Heparin subcutaneous GI prophylaxis: Not needed at this time VS, I&O, 24H, Fishbone Vital Signs/I&O Vital Signs Date Time Temp Pulse Resp B/P (MAP) Pulse Ox O2 Delivery O2 Flow Rate FiO2 11/24/19 14:00 98.2 97 19 127/53 (77) 98 Room Air 11/18/19 20:00 I&O- Last 24 Hours up to 6 AM 11/24/19 06:00 Intake Total 900 ml Output Total 0 ml Balance 900 ml Laboratory Data 24H LABS Laboratory Tests 2 11/23/19 20:13: Bedside Glucose (Misc Panel) 249H 11/24/19 06:13: Bedside Glucose (Misc Panel) 264H 11/24/19 16:34: Bedside Glucose (Misc Panel) 183H Microbiology Microbiology 11/20/19 Blood Culture - Preliminary, Resulted No Growth after 72 hours. All specime... 11/17/19 Blood Culture - Final, Complete NO GROWTH AFTER 5 DAYS 11/14/19 Blood Culture - Final, Complete NO GROWTH AFTER 5 DAYS GILBERT SEE MD Nov 24, 2019 19:12
[2019-11-24] MEDS: HEPARIN SOD (PORCINE) 5000 UNITS/ML VIAL (J1644 PER 1000UNITS) SQ SCH (20:20)
[2019-11-24] MEDS: HumaLOG INSULIN (NovoLOG) PER UNIT SC SCH (20:21)
[2019-11-24 22:00] VITALS: BP 128/54
[2019-11-25] MEDS: HumaLOG INSULIN (NovoLOG) PER UNIT SC SCH ×4 (00:27→18:22)
[2019-11-25] MEDS: PIPERACILLIN/TAZOBACTAM SOD 2.25 GM in D5W MINI-BAG PLUS 50 ML IV SCH ×2 (03:31→16:12)
[2019-11-25] MEDS: SODIUM CHLORIDE 0.9% INJ 10 ML SYR IV SCH ×2 (05:04→17:03)
[2019-11-25 06:00] VITALS: BP 121/60
[2019-11-25] MEDS: HEPARIN SOD (PORCINE) 5000 UNITS/ML VIAL (J1644 PER 1000UNITS) SQ SCH ×2 (08:42→21:44)
[2019-11-25] MEDS: VANICREAM MOISTURIZING SKIN CREAM 113GM TUBE TOP SCH ×2 (08:43→21:43)
[2019-11-25] MEDS: NYSTATIN 100,000 UNITS/GM TOPICAL PWD 15 GM TOP SCH ×2 (08:43→21:43)
[2019-11-25] MEDS: D5W/0.9% SODIUM CHLORIDE 1,000 ML IV SCH (08:43)
--- NOTE | 2019-11-25 11:00 | IPN ---
DATE OF SERVICE: 11/25/2019 SUBJECTIVE: The patient was seen and examined at the bedside today morning. He is laying in the bed. He is very obtunded. He does not follow commands and does not open his eyes. He continues to be on IV fluid hydration. He was dialyzed yesterday, only 500 mL of fluid was removed. OBJECTIVE: Vital Signs: Temperature is 97.6 degrees Fahrenheit, blood pressure 121/60, pulse is 89, respiratory rate of 18, saturating 93% on room air. Intake and Output. There is no urine output recorded. Ultrafiltration with hemodialysis was 500 mL. Weight in the bed scale was 85.2 kg. PHYSICAL EXAMINATION: General: The patient is obtunded, drowsy, sleepy, laying in bed, does not open his eyes, and on painful stimuli tries to answer questions but he is not able to communicate. Head and Neck Exam: Eyes are closed. Mucous membranes are dry. Neck is supple. There is no jugular venous distention (JVD). Cardiovascular: S1, S2. Regular rate. No edema of the bilateral lower extremities. Respiratory: Chest is clear to auscultation bilaterally. Bilateral equal air entry. No rales or rhonchi. Abdomen: Soft. Positive bowel sounds. Nontender. No organomegaly. Genitourinary: There is no more Sargent catheter at this time. Musculoskeletal: No clubbing or cyanosis. The patient does not move his left side. FUR TINTER: The patient is very drowsy and obtunded, almost comatose. Tries to open his eyes and tries to answer a few questions, but he is unable to communicate. LAB REVIEW: From 11/23/2019, CBC showed WBC of 12.9, hemoglobin 8.8, platelets of 132. BMP showed sodium 139. There are no new labs available. CURRENT INPATIENT MEDICATIONS: The patient's medications were all reviewed by myself. He continues to be on IV Zosyn and when Zosyn finishes on November 26 he will be started on Ancef. No other change in the medications today as compared with yesterday. ASSESSMENT/PLAN: 1. End-stage renal disease. The patient is being dialyzed. He was dialyzed yesterday. Next hemodialysis will be tomorrow morning. 2. Anemia in end-stage renal disease. Continue current dose of Venofer and Aranesp. Hemoglobin level is stable and improving. Check another CBC tomorrow morning. 3. Metabolic encephalopathy. There is no improvement in the patient's mental status. It is secondary to multiple septic emboli causing strokes. 4. MSSA bacteremia. The patient is currently on IV Zosyn for pneumonia and MSSA and he will be switched to Ancef on November 26. 5. Aspiration pneumonitis. The patient's white cell count is stable and improving. He is stable on room air. He continues to be on IV Zosyn. 6. Disposition. The patient overall has a very poor prognosis. He is unable to eat anything. He is dependent on IV fluid hydration. He has left-sided weakness and chronically bedridden. We need to discuss the further plans of care with the family members. In my opinion, we should stop the dialysis and make this patient comfort measures only.
[2019-11-25 14:00] VITALS: BP 125/66
--- NOTE | 2019-11-25 20:49 | IPNPDOC ---
Date Seen The patient was seen on 11/25/19. Progress Note SUBJECTIVE: 84-year-old male with past medical history of chronic kidney disease, coronary artery disease status post CABG, aortic stenosis, status post TAVR, diabetes mellitus, hypertension, hyperlipidemia and BPH who was admitted for MSSA bacteremia and acute on chronic kidney disease. Patient is now hemodialysis dependent, permacath was placed and getting hemodialysis as per nephrology. Patient has, located MSSA bacteremia due to the aortic valve replacement and pacemaker, CT of brain showing multiple infarcts, concerning for septic emboli. Patient is being treated as if he has endocarditis given his clinical presentation. Patient seen while undergoing hemodialysis today, minimally responsive to tactile stimuli, does not open eyes, does not follow commands, is moving some of his extremities and groaning. 11/25/19 No acute events overnight, patient able to open eyes today and follow simple commands but unable to communicate of speak. He has noticeable left sided weakness in his actions. I had a prolonged discussion with patient's son & over the phone regarding goals of care. I explained the options regarding ROADWAY TECHNICIAN vs complete medical management which would include PEG tube placement in addition to his current treatment regimen. They would like to discuss with patient's daughter before making a decision at this time. PHYSICAL EXAMINATION: VITAL SIGNS: Please see below. GENERAL: lethargic, opens eyes to vocal/tactile stimuli HEENT: moist mucous membranes CARDIOVASCULAR EXAMINATION: S1, S2 RESPIRATORY EXAMINATION: Scattered rhonchi, no wheezing ABDOMINAL EXAMINATION: Soft, nondistended, positive bowel sounds EXTREMITIES: No edema SKIN: No rash NEUROLOGICAL EXAMINATION: Unable to assess, noticeable left sided weakness when patient performs random movements/actions PSYCHIATRIC EXAMINATION: Lethargic LABORATORY DATA, IMAGING STUDIES, MICROBIOLOGY: Please see below. ASSESSMENT AND PLAN: 84-year-old male with multiple medical comorbidities who is admitted for acute on chronic kidney disease and MSSA bacteremia complicated by valve replacement, pacemaker and likely septic emboli to the brain. PROBLEMS: 1. MSSA bacteremia: Complicated due to aortic valve replacement, permanent pacemaker and imaging concerning for septic emboli to the brain, being treated as endocarditis, currently on Zosyn, to also treat for hospital- acquired/aspiration pneumonia, will transition back to Ancef on 11/27/2019 to complete 6 weeks of antibiotics, infectious disease following. 2. Acute on chronic kidney failure: Patient is now hemodialysis dependent, permacath placed, further hemodialysis as per nephrology. 3. CVA: CT head concerning for multiple infarcts consistent with septic emboli, patient minimally responsive, had a prolonged goals of care discussion with son & , they would like to discuss with patient's daughter before making a final decision. 4. Diabetes mellitus: Sliding scale insulin coverage every 6 hours. DVT prophylaxis: Heparin subcutaneous GI prophylaxis: Not needed at this time VS, I&O, 24H, Fishbone Vital Signs/I&O Vital Signs Date Time Temp Pulse Resp B/P (MAP) Pulse Ox O2 Delivery O2 Flow Rate FiO2 11/25/19 14:00 98.6 89 19 125/66 (85) 95 Room Air I&O- Last 24 Hours up to 6 AM 11/25/19 06:00 Intake Total 1020 ml Output Total 500 ml Balance 520 ml Laboratory Data 24H LABS Laboratory Tests 2 11/25/19 00:07: Bedside Glucose (Misc Panel) 186H 11/25/19 00:09: Bedside Glucose (Misc Panel) 189H 11/25/19 05:44: Bedside Glucose (Misc Panel) 173H 11/25/19 12:14: Bedside Glucose (Misc Panel) 180H 11/25/19 18:17: Bedside Glucose (Misc Panel) 177H Microbiology Microbiology 11/20/19 Blood Culture - Final, Complete NO GROWTH AFTER 5 DAYS 11/17/19 Blood Culture - Final, Complete NO GROWTH AFTER 5 DAYS GILBERT SEE MD Nov 25, 2019 20:49
[2019-11-25 22:00] VITALS: BP 125/55
[2019-11-26] MEDS: HumaLOG INSULIN (NovoLOG) PER UNIT SC SCH ×2 (00:34→06:40)
[2019-11-26] MEDS: PIPERACILLIN/TAZOBACTAM SOD 2.25 GM in D5W MINI-BAG PLUS 50 ML IV SCH (03:35)
[2019-11-26 06:00] VITALS: BP 121/55
[2019-11-26] MEDS: SODIUM CHLORIDE 0.9% INJ 10 ML SYR IV SCH (06:00)
[2019-11-26 06:21] LABS: BASO % 0.4 % (0.0-1.0); EOS # 0.2 10^3/uL (0.0-0.5); HEMATOCRIT 29.3 % (42.0-52.0); HEMOGLOBIN 9.2 g/dl (13.5-17.5); LYMPH # 1.1 10^3/uL (1.5-5.0); MEAN CORPUSCULAR HEMOGLOBIN 31.2 pg (27.0-33.0); MEAN CORPUSCULAR HGB CONC 31.4 g/dl (32.0-36.5); MEAN CORPUSCULAR VOLUME 99.3 fl (80.0-96.0); MONO # 0.4 10^3/uL (0.0-0.8); MONO % 5.7 % (0.0-5.0); NEUTROPHILS # 5.7 10^3/uL (1.5-8.5); NEUTROPHILS % 75.3 % (36.0-66.0); RED BLOOD COUNT 2.95 10^6/uL (4.30-6.10); WHITE BLOOD COUNT 7.5 10^3/uL (4.0-10.0)
[2019-11-26 06:23] LABS: PLATELET COUNT, AUTOMATED 74 10^3/uL (150-450)
[2019-11-26 06:45] LABS: ALBUMIN 1.2 GM/DL (3.2-5.2); C REACTIVE PROTEIN QUANTITATIV 9.96 MG/DL (0.00-0.30); CALCIUM LEVEL 7.7 MG/DL (8.8-10.2); CREATININE FOR GFR 5.58 MG/DL (0.70-1.30); GLOMERULAR FILTRATION RATE 10.4 (>35); PHOSPHORUS LEVEL 6.3 MG/DL (2.5-4.9); POTASSIUM SERUM 4.1 MEQ/L (3.5-5.1)
--- NOTE | 2019-11-26 11:12 | IPN ---
DATE OF SERVICE: 11/26/2019 SUBJECTIVE: The patient was seen and examined at the bedside today morning during hemodialysis procedure. The patient is not responding to verbal stimuli. He is otherwise tolerating the hemodialysis procedure well. He continues to be on IV fluid hydration. The patient is unable to take anything orally. OBJECTIVE: Vital Signs: Temperature is 97.6 degrees Fahrenheit, blood pressure 121/55, pulse is 84, respiratory rate of 20, and saturating 97% on room air. Intake and Output: There is no urine output recorded. He has incontinent voids. Latest bed scale weight is from 2 days ago and it was 85.2 kg. PHYSICAL EXAMINATION: General: The patient is very lethargic. Eyes are closed. He moves extremities on painful stimuli only. Head and Neck Exam: Eyes are closed. Mucous membranes are dry. Neck is supple. He has a tunneled dialysis catheter which is being used for dialysis. Cardiovascular: S1, S2, regular rate. No edema of the bilateral lower extremities. Respiratory: Chest is clear to auscultation bilaterally. No active rales or rhonchi at this time. Abdomen: Soft. Positive bowel sounds. Nontender. No organomegaly. Musculoskeletal: No clubbing or cyanosis. Pulses are 2+. 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 He does not follow commands and is unable to communicate. Eyes are closed at this time. LAB REVIEW: CBC showed WBC 7.5, hemoglobin 9.2, platelets are 74. BMP showed sodium 140, potassium 4.1, chloride 106, bicarb 24, BUN 36, creatinine is 5.5, calcium 7.7, phosphorus 6.3. C-reactive protein is 9.9. Albumin 1.2. CURRENT INPATIENT MEDICATIONS: The patient's medications were all reviewed by me. He continues to be on IV Zosyn until tomorrow, then he will be switched to Ancef. He continues to be on IV fluid hydration. No other change in the medications today as compared with yesterday. ASSESSMENT/PLAN: 1. End-stage renal disease. The patient continues to be dialysis dependent. He is being dialyzed. Minimal fluid removal will be done because the patient is not taking anything orally. 2. Anemia in end-stage renal disease. Hemoglobin level is 9.2 which is improving. Continue current dose of Aranesp and Venofer. 3. Aspiration pneumonitis. The patient is currently on Zosyn, last dose will be tomorrow. 5. Methicillin-sensitive Staphylococcus aureus (MSSA) bacteremia. After the Zosyn is finished,, he will be switched to Ancef tomorrow. Duration of antibiotic is as per infectious disease (ID) recommendations. 6. Protein calorie malnutrition. The patient is unable to take anything orally. His albumin level is very low. He is just getting IV fluid hydration. Goals of care are being discussed with the family members. If they want to continue the care, then he needs to be on parenteral nutrition until he can get PEG tube placement. 7. Disposition. The patient overall has a very poor prognosis given his renal failure, recent MSSA bacteremia with multiple embolic strokes.
[2019-11-26] MEDS ORDERED: LORazepam 2 MG/ML VIAL (J2060) IV PRN (11:30)
[2019-11-26] MEDS ORDERED: MORPHINE 2 MG/ML 1ML VIAL (J2270) IV PRN (11:30)
--- NOTE | 2019-11-26 11:33 | IPNPDOC ---
Date Seen The patient was seen on 11/26/19. Progress Note 11/26/19 I had another discussion with patient's & son over the phone who have now elected to change the patient's status to comfort measures only after discussing with patient's daughter. All questions were answered, next steps regarding hospice care were explained to them and Hospice consult has been requested. Will stop all medical treatments for now other than medications for comfort. Patient will no longer be going for hemodialysis. medicine worker will get in touch with family for further assistance. VS, I&O, 24H, Bongbone Vital Signs/I&O Vital Signs Date Time Temp Pulse Resp B/P (MAP) Pulse Ox O2 Delivery O2 Flow Rate FiO2 11/26/19 06:00 97.6 84 20 121/55 (77) 97 11/25/19 14:00 Room Air I&O- Last 24 Hours up to 6 AM 11/26/19 06:00 Intake Total 1020 ml Output Total 0 ml Balance 1020 ml Laboratory Data 24H LABS Laboratory Tests 2 11/25/19 12:14: Bedside Glucose (Misc Panel) 180H 11/25/19 18:17: Bedside Glucose (Misc Panel) 177H 11/26/19 00:01: Bedside Glucose (Misc Panel) 143H 11/26/19 05:51: Immature Granulocyte % (Auto) 1.6, Neutrophils (%) (Auto) 75.3H, Lymphocytes (%) (Auto) 15.0L, Monocytes (%) (Auto) 5.7H, Eosinophils (%) (Auto) 2.0, Basophils (%) (Auto) 0.4, Neutrophils # (Auto) 5.7, Lymphocytes # (Auto) 1.1L, Monocytes # (Auto) 0.4, Eosinophils # (Auto) 0.2, Basophils # (Auto) 0.0, Nucleated Red Blood Cells % (auto) 0.3H, Immature Platelet Fraction 2.6, Anion Gap 10, Glomerular Filtration Rate 10.4L, Calcium Level 7.7L, Phosphorus Level 6.3H, C- Reactive Protein, Quantitative 9.96H, Albumin 1.2L 11/26/19 06:11: Bedside Glucose (Misc Panel) 188H CBC/BMP Laboratory Tests 11/26/19 05:51 Microbiology Microbiology 11/20/19 Blood Culture - Final, Complete NO GROWTH AFTER 5 DAYS 11/17/19 Blood Culture - Final, Complete NO GROWTH AFTER 5 DAYS GILBERT SEE MD Nov 26, 2019 11:33
[2019-11-26] MEDS ORDERED: HEPARIN 1,000 UNITS/ML 10ML VIAL (FOR RADIOLOGY& DIALYSIS ONLY)(J1644-10) XX ONE (12:00)
[2019-11-26] MEDS: SCOPOLAMINE 1MG TRANSDERMAL PATCH TOP SCH (17:35)
[2019-11-27] MEDS ORDERED: ceFAZolin SOD 2 GM in IV 1 EA IV SCH (18:00)
[2019-11-29] MEDS ORDERED: LORazepam 0.5 MG TAB PO PRN (07:45)
[2019-11-29] MEDS ORDERED: MORPHINE 10MG/0.5ML ORAL CONCENTRATE SOLUTION U/D SL PRN (07:45)
[2019-11-29] MEDS: SCOPOLAMINE 1MG TRANSDERMAL PATCH TOP SCH (12:26)
[2019-11-29] MEDS: NYSTATIN 100,000 UNITS/GM TOPICAL PWD 15 GM TOP SCH (20:28)
[2019-11-30] MEDS: NYSTATIN 100,000 UNITS/GM TOPICAL PWD 15 GM TOP SCH ×2 (09:37→20:13)
--- NOTE | 2019-12-02 08:32 | DS.PDOC ---
Discharge Summary General Date of Admission Nov 04, 2019 at 18:38 Date of Discharge 12/01/19 Attending Physician: GILBERT SEE MD Discharge Summary PROCEDURES PERFORMED DURING STAY: Hemodialysis catheter ADMITTING DIAGNOSES: 1. Bacteremia, Endocarditis, Septic emboli, CVA, RICHY DISCHARGE DIAGNOSES: 1. Bacteremia, Endocarditis, Septic emboli, CVA, RICHY COMPLICATIONS/CHIEF COMPLAINT: Chronic Kidney Disease,Orthostatic Hypotension. HISTORY OF PRESENT ILLNESS: 84-year-old male with past medical history of chronic kidney disease, coronary artery disease status post CABG, aortic stenosis, status post TAVR, diabetes mellitus, hypertension, hyperlipidemia and BPH who was admitted for MSSA bacteremia and acute on chronic kidney disease. Patient's renal function continued to worsen until he required Hemodilaysis. Patient had complicated MSSA bacteremia due to the aortic valve replacement and pacemaker, CT of brain showing multiple infarcts, concerning for septic emboli from likely endocarditis. Given patient's multiple medical comorbidities & active issues, family decided to make him FABRIC NORMALIZER. He on 12/01/19. HOSPITAL COURSE: As above DISPOSITION: 20 . TIME SPENT ON DISCHARGE: Greater than 15 minutes. Vital Signs/I&Os Vital Signs Date Time Temp Pulse Resp B/P (MAP) Pulse Ox O2 Delivery O2 Flow Rate FiO2 11/26/19 06:00 97.6 84 20 121/55 (77) 97 Discharge Medications Scheduled Ascorbic Acid (Vitamin C) 500 Mg Capsule.er, 500 MG PO DAILY, (Reported) Aspirin (Aspir 81) 81 Mg Tablet.dr, 81 MG PO QPM, (Reported) Calcitriol (Rocaltrol) 0.25 Mcg Capsule, 0.25 MCG PO Q2D, (Reported) Docusate Sodium (Stool Softener) 100 Mg Capsule, 100 MG PO QHS, (Reported) Docusate Sodium (Docusate Sodium) 100 Mg Capsule, 100 MG PO BID Ergocalciferol (Vitamin D2) (Vitamin D2) 50,000 Units Cap, 50,000 UNITS PO QMONTH, (Reported) 15TH OF EACH MONTH Finasteride (Finasteride) 5 Mg Tablet, 5 MG PO DAILY, (Reported) Furosemide (Furosemide) 40 Mg Tablet, 40 MG PO DAILY, (Reported) Insulin Glargine,Hum.rec.anlog (Lantus Solostar) 100 Unit/1 Ml Insuln.pen, 50 UNITS SC QPM, (Reported) Metoprolol Succinate (Toprol Xl) 25 Mg Tab.er.24h, 25 MG PO DAILY, (Reported) Nifedipine (Nifedipine ER) 30 Mg Tab.er.24, 30 MG PO DAILY Nitrofurantoin Macrocrystal (Nitrofurantoin) 100 Mg Capsule, 100 MG PO DAILY, (Reported) Pantoprazole Sodium (Pantoprazole Sodium) 40 Mg Tablet.dr, 40 MG PO DAILY, (Reported) Polyethylene Glycol 3350 (Polyethylene Glycol 3350) 17 Gm Powd.pack, 1 PKT PO DAILY Rosuvastatin Calcium (Crestor) 20 Mg Tablet, 20 MG PO QPM, (Reported) Tamsulosin HCl (Flomax) 0.4 Mg Capsule, 0.4 MG PO BID, (Reported) Scheduled PRN Acetaminophen (Acetaminophen) 325 Mg Tablet, 650 MG PO Q4H PRN for PAIN, (Reported) Betamethasone/Propylene Glyc (Betamethasone Dp Aug 0.05% Oin) 15 Gm Oint...g., 1 DOSE TOP BID PRN for RASH, (Reported) APPLY TO ARMS AND LEGS Clotrimazole/Betamethasone Dip (Clotrimazole-Betamethasone Lot) 30 Ml Lotion, 1 DOSE TOP BID PRN for RASH, (Reported) APPLY TO ARMS, LEGS, AND FEET Allergies Coded Allergies: Sulfa (Sulfonamide Antibiotics) (Unverified Allergy, Severe, anaphylaxis, 02/09/19) GILBERT SEE MD Dec 02, 2019 08:32
== END 2019-12-01 05:00 | disposition expired | DRG 73 ==
LOC: M ED 12:06 → M ED INP 18:38 → ENRESERVTM 19:18 → CANRESERV 19:18 → ENRESERVDT 19:18 → ENRESERVTM 19:55 → M PCU 21:40 → M MSPAV 11-05 22:38 → M PCU 11-16 18:48 → M MSPAV 11-23 15:47
PROVIDERS: ADMIT Internal Medicine Nephrology; ATTEND Internal Medicine
PROC: 02HV33Z Insertion of Infusion Device into Superior Vena Cava, Percutaneous Approach (ICD-10-PCS; principal; 2019-11-14)
PROC: 5A1D70Z Performance of Urinary Filtration, Intermittent, Less than 6 Hours Per Day (ICD-10-PCS; 2019-11-14)
PROC: 02H633Z Insertion of Infusion Device into Right Atrium, Percutaneous Approach (ICD-10-PCS; 2019-11-18)
PROC: 0JH63XZ Insertion of Tunneled Vascular Access Device into Chest Subcutaneous Tissue and Fascia, Percutaneous Approach (ICD-10-PCS; 2019-11-18)
DX: E11.43 Type 2 diabetes mellitus with diabetic autonomic (poly)neuropathy (principal); G93.41 Metabolic encephalopathy; N18.6 End stage renal disease; I63.49 Cerebral infarction due to embolism of other cerebral artery; J69.0 Pneumonitis due to inhalation of food and vomit; I33.0 Acute and subacute infective endocarditis; N39.0 Urinary tract infection, site not specified; N17.9 Acute kidney failure, unspecified; N25.81 Secondary hyperparathyroidism of renal origin; E87.2 Acidosis; L02.213 Cutaneous abscess of chest wall; R78.81 Bacteremia; I13.0 Hypertensive heart and chronic kidney disease with heart failure and stage 1 through stage 4 chronic kidney disease, or unspecified chronic kidney disease; E46 Unspecified protein-calorie malnutrition; G81.94 Hemiplegia, unspecified affecting left nondominant side; Z51.5 Encounter for palliative care; Z66 Do not resuscitate; I25.10 Atherosclerotic heart disease of native coronary artery without angina pectoris; E11.22 Type 2 diabetes mellitus with diabetic chronic kidney disease; E11.40 Type 2 diabetes mellitus with diabetic neuropathy, unspecified; D63.1 Anemia in chronic kidney disease; E78.5 Hyperlipidemia, unspecified; I95.1 Orthostatic hypotension; N40.1 Benign prostatic hyperplasia with lower urinary tract symptoms; I50.9 Heart failure, unspecified; R29.6 Repeated falls; R33.9 Retention of urine, unspecified; R19.7 Diarrhea, unspecified; R32 Unspecified urinary incontinence; K74.60 Unspecified cirrhosis of liver; B95.61 Methicillin susceptible Staphylococcus aureus infection as the cause of diseases classified elsewhere; E87.5 Hyperkalemia; D69.6 Thrombocytopenia, unspecified; R50.9 Fever, unspecified; D72.829 Elevated white blood cell count, unspecified; Z79.4 Long term (current) use of insulin; Z99.2 Dependence on renal dialysis; Z85.828 Personal history of other malignant neoplasm of skin; Z95.0 Presence of cardiac pacemaker; Z95.1 Presence of aortocoronary bypass graft; Z79.899 Other long term (current) drug therapy; Z95.2 Presence of prosthetic heart valve; Z88.2 Allergy status to sulfonamides; Z79.82 Long term (current) use of aspirin